=== PATIENT | male | born 1965 | race Caucasian/White ===

== ENCOUNTER 2020-07-12 12:31 | Inpatient (IN) | payer OTHER, MEDICARE ==
[~2020-07-12] VITALS: Ht 182.9 cm; Wt 117.9 kg
[2020-07-12 12:51] LABS: BASOPHILS ABSOLUTE AUTO 0.06 K/mm3 (0.00-0.23); BASOPHILS PERCENT AUTO 1 % (0-2); EOSINOPHILS ABSOLUTE AUTO 0.28 K/mm3 (0.00-0.68); EOSINOPHILS PERCENT AUTO 4 % (0-6); Hematocrit 41.9 % (37.0-53.0); Hemoglobin 13.2 g/dL (13.5-17.5); IMMATURE GRAN ABSOLUTE AUTO 0.02 K/mm3 (0.00-0.10); IMMATURE GRAN PERCENT AUTO 0 % (0-1); LYMPHOCYTES ABSOLUTE AUTO 1.71 K/mm3 (0.84-5.20); LYMPHOCYTES PERCENT AUTO 23 % (21-46); MONOCYTES PERCENT AUTO 8 % (4-13); Mean Corpuscular HGB 28.6 pg (26.0-34.0); Mean Corpuscular HGB Conc 31.5 g/dL (31.5-36.5); Mean Corpuscular Volume 91 fL (80-100); Mean Platelet Volume 10.3 fL (9.1-12.4); NEUTROPHILS ABSOLUTE AUTO 4.86 K/mm3 (1.96-9.15); NEUTROPHILS PERCENT AUTO 65 % (41-73); Platelet Count 251 K/mm3 (150-400); RDW Coefficient Variation 14.9 % (11.7-14.2); RDW Standard Deviation 49.4 fL (35.1-46.3); Red Blood Cell Count 4.62 M/mm3 (4.30-5.90); White Blood Cell Count 7.53 K/mm3 (4.00-11.30)
[2020-07-12 13:07] LABS: Alanine Aminotransfer (ALT/SGP 26 U/L (12-78); Albumin, Blood 3.4 g/dL (3.4-5.0); Albumin/Globulin Ratio 0.8 (0.8-1.8); Alk Phos 148 U/L (50-136); Anion Gap 6 mmol/L (6-16); Aspartate Aminotrans (AST/SGOT 24 U/L (12-37); Bilirubin, Total 1.2 mg/dL (0.1-1.0); Blood Urea Nitrogen 12 mg/dL (8-24); Bun/Creatinine Ratio 11.4 (12.0-20.0); CO2, Blood 26 mmol/L (21-32); Chloride, Blood 106 mmol/L (98-108); Creatinine, Blood 1.05 mg/dL (0.60-1.20); Globulin, Blood 4.2 g/dL (2.2-4.0); Glomerular Filtration Rate >60 (60-); Glucose, Blood 134 mg/dL (70-99); Potassium, Blood 4.1 mmol/L (3.5-5.5); Sodium, Blood 138 mmol/L (136-145); Total Protein, Blood 7.6 g/dL (6.4-8.2); Troponin I 0.093 ng/mL (0.000-0.040)
[2020-07-12 13:36] LABS: U Amphetamine Screen Not Detected; U Barbituate Screen Not Detected; U Benzodiazapine Screen Not Detected; U Buprenorphine Screen Not Detected; U Cannabinoids Screen DETECTED; U Cocaine Screen Not Detected; U Methadone Screen Not Detected; U Methamphetamine Screen Not Detected; U Opiates Screen Not Detected; U Oxycodone Screen Not Detected; U Phencyclidine Screen Not Detected; U Propoxyphene Screen Not Detected
[2020-07-12] MEDS ORDERED: ALBENDAZOLE200 MG PO (14:04)
[2020-07-12] MEDS ORDERED: BUSP5 PO (14:05)
[2020-07-12] MEDS ORDERED: ATOR80 PO (14:05)
[2020-07-12] MEDS ORDERED: Prozac20 MG PO (14:05)
[2020-07-12] MEDS ORDERED: METF500 PO (14:06)
[2020-07-12] MEDS ORDERED: FURO40 PO (14:06)
[2020-07-12] MEDS ORDERED: METO100ER PO (14:07)
[2020-07-12] MEDS ORDERED: OMEP20ER PO (14:07)
[2020-07-12] MEDS ORDERED: XARELTO20 MG PO (14:08)
[2020-07-12] MEDS ORDERED: TAMS.4ER PO (14:08)
[2020-07-12] MEDS ORDERED: POTA10T PO (14:08)
--- NOTE | 2020-07-12 18:01 | NUR ---
Echocardiogram using 0.60ml of Definity contrast performed.
--- NOTE | 2020-07-12 20:35 | NUR ---
PROVIDER SPOKE WITH MISSAEL COOPER REGARDING UNCLEAR ORDERS REGARDING AIRBORNE ISOLATION. GROUP SALES MANAGER ADMITTED PT AND STATES NO NEED FOR ISOLATION. UNSURE TO WHY [employer] SHOWS THIS.
[2020-07-12] MEDS ORDERED: Hair, Skin & N1 EACH PO (21:16)
--- NOTE | 2020-07-13 05:15 | NUR ---
ASSUMED CARE OF PATIENT AT APPROXIMATELY 1900 FROM SEEMA Bahena RN. PATIENT ARRIVED TO UNIT VIA STRETCHER; TRANSFER FROM ED TO PCU STRETCHER WITH SBA. PATIENT ALERT AND ORIENTED X4; INDEPENDENT IN ROOM. PATIENT DENIED PAIN MOST OF SHIFT; REPORTED HEADACHE THIS AM; MEDICATED PER EMAR AND COOL WASH CLOTH GIVEN; GOOD RESULTS. ADMISSION COMPLETE. AFIB ON TELE W/ RATE OF 100-125; HEART RATE INCREASES TO 150'S W/ AMBULATION; OXYGEN SATURATION ABOVE 90% ON ROOM AIR; DYSPNEA W/ ACTIVITY. IV S/L. PATIENT SLEPT ABOUT 4 HOURS LAST NIGHT; ATE MULTIPLE SNACKS. PATIENT REPORTS HE HAS NOT BEEN FEELING WELL FOR THE PAST MONTH; POOR APPETITE, SOB, COUGH, SORE THROAT, HEADACHE AND ODD TASTE IN MOUTH; CALLED DR. PEPE; ORDERS RECIEVED FOR COVID TEST; RESULTS PENDING. PATIENT CURRENTLY RESTING IN BED; CALL LIGHT IN REACH; BED IN LOWEST POSISTION; WILL CONTINUE TO MONTOR AND ASSESS UNTIL END OF SHIFT.
[2020-07-13 08:10] LABS: BASOPHILS ABSOLUTE AUTO 0.06 K/mm3 (0.00-0.23); BASOPHILS PERCENT AUTO 1 % (0-2); EOSINOPHILS ABSOLUTE AUTO 0.34 K/mm3 (0.00-0.68); EOSINOPHILS PERCENT AUTO 4 % (0-6); Hematocrit 37.7 % (37.0-53.0); Hemoglobin 12.2 g/dL (13.5-17.5); IMMATURE GRAN ABSOLUTE AUTO 0.02 K/mm3 (0.00-0.10); IMMATURE GRAN PERCENT AUTO 0 % (0-1); LYMPHOCYTES ABSOLUTE AUTO 1.81 K/mm3 (0.84-5.20); LYMPHOCYTES PERCENT AUTO 23 % (21-46); MONOCYTES ABSOLUTE AUTO 0.55 K/mm3 (0.16-1.47); MONOCYTES PERCENT AUTO 7 % (4-13); Mean Corpuscular HGB 29.1 pg (26.0-34.0); Mean Corpuscular HGB Conc 32.4 g/dL (31.5-36.5); Mean Corpuscular Volume 90 fL (80-100); Mean Platelet Volume 10.4 fL (9.1-12.4); NEUTROPHILS ABSOLUTE AUTO 4.96 K/mm3 (1.96-9.15); NEUTROPHILS PERCENT AUTO 64 % (41-73); Platelet Count 241 K/mm3 (150-400); RDW Coefficient Variation 14.8 % (11.7-14.2); RDW Standard Deviation 48.5 fL (35.1-46.3); Red Blood Cell Count 4.19 M/mm3 (4.30-5.90); White Blood Cell Count 7.74 K/mm3 (4.00-11.30)
[2020-07-13 08:32] LABS: Anion Gap 6 mmol/L (6-16); Blood Urea Nitrogen 17 mg/dL (8-24); Bun/Creatinine Ratio 14.9 (12.0-20.0); CO2, Blood 27 mmol/L (21-32); Calcium, Blood 8.7 mg/dL (8.5-10.1); Chloride, Blood 110 mmol/L (98-108); Creatinine, Blood 1.14 mg/dL (0.60-1.20); Glomerular Filtration Rate >60 (60-); Glucose, Blood 128 mg/dL (70-99); Potassium, Blood 3.8 mmol/L (3.5-5.5); Sodium, Blood 143 mmol/L (136-145); Troponin I 0.094 ng/mL (0.000-0.040)
--- NOTE | 2020-07-13 14:38 | NUR ---
PT HRR INCREASES WITH EXERTION 110-160'S AFIB CARDIZEM GTT WAS STARTED AT 15MG/HR, HR JUST NOW STAYED ON THE 80-90'S, PT WAS C/O OF LIGHTHEADEDNESS/NAUSEA AND FEELING WEAK. BP SYSTOLIC DROP DOWN TO 96, SATS ABOVE 94% ON RA, AFEBRILE. CARDIZEM WAS DISCONTINUED EF SHOWS 20-25% ON ECHO DR LE MADE AWARE TO INCREASES METOPROLOL TO 100G STARTING TOMORROW. PT REMAINS IN 2L FLUID RESTRICTION. DENIES CHEST PAIN/PRESSURE, NO OTHER ISSUES ENCOUNTERED FOR THE SHIFT, ABLE TO MAKE NEEDS KNOWN. WILL MONITOR
--- NOTE | 2020-07-13 15:15 | NUR ---
ASSUMED CARE OF PT, HE IS SITTING IN A RECLINER WATCHING TV. HE DENIES ANY COMPLIANTS OR NEEDS AT THIS TIME. Naveen SILVA, CALL LIGHT IN REACH.
--- NOTE | 2020-07-13 18:48 | NUR ---
PT CONTINUES TO SIT IN CHAIR, STATES HE'S DOING FINE, FEELING BETTER, IS PLANNING ON GOING HOME TOMORROW. NO NEEDS AT THIS TIME. CALL LIGHT IN REACH.
--- NOTE | 2020-07-13 21:45 | NUR ---
PATIENT CALLED NURSE TO ROOM TO REPORT THAT HE FEEL LIKE HE HAS BEEN POISONED. PATIENT REPORTS THAT LESS THAN A A MONTH AGO HE WAS DOING METH AND FEELS THE PEOPLE THAT SOLD HIM METH MAY HAVE POISONED HIM; REPORTS HIS GIRLFRIEND A MONTH AGO FROM SAME SYPMTOMS AND BROTHER TWO YEARS AGO FROM SIMILIAR SYMPTOMS. PATIENT REPORTS HE IS NO LONGER USING METH. PATIENT REPORTS ODD METALLIC TASTE IN MOUTH FOR PAST MONTH. REQUEST BLOOD AND URINE BE TESTED FOR TOXINS; WILL PASS ONTO DAYSHIFT. WILL CONTINUE TO MONITOR AND ASSESS.
--- NOTE | 2020-07-14 01:02 | NUR ---
PT INDEPENDENT AROUND ROOM. COOPERATIVE WITH CARE. UNABLE TO SLEEP. PT IS EATING SUGAR FREE SNACKS THROUGHOUT THE NIGHT. CALL LIGHT IN REACH, WILL CONTINUE TO MONITOR.
[2020-07-14 05:53] LABS: Bun/Creatinine Ratio 17.4 (12.0-20.0); Creatinine, Blood 1.32 mg/dL (0.60-1.20); Magnesium, Blood 2.2 mg/dL (1.6-2.4); Potassium, Blood 3.7 mmol/L (3.5-5.5)
[2020-07-14] MEDS ORDERED: Amiodarone HCl200 MG PO (15:42)
[2020-07-14] MEDS ORDERED: LOSA25 PO (15:43)
[2020-07-14] MEDS ORDERED: Nicoderm Cq1 EAC1 TOP (15:44)
[2020-07-14] MEDS ORDERED: NICO2 PO (15:44)
[2020-07-14] MEDS ORDERED: ONDA4ODT MM (15:45)
[2020-07-14] MEDS ORDERED: SPIR25 PO (15:45)
[2020-07-14] MEDS ORDERED: ACET325 PO (15:47)
--- NOTE | 2020-07-14 16:45 | NUR ---
PT DISCHARGED TO HOME TODAY WITH DISCHARGED ORDERS. PT STARTED ON AMIODARONE PO, HR AFIB CONTROLLED ON THE 90-110'S, PT DENIES CHEST PAIN/PRESSURE PT HAS BEEN AMBULATING AROUND THE UNIT. PRESCRIPTION SENT TO [facility], ALL DISCHARGE INSTRUCTIONS AND MEDICATIONS DISCLOSED WITH THE PT, PT TO CALL TO SCHEDULE WITH PCP FOR CARDIAC REHAB REFERRAL. PT PROVIDED [facility] INFORMATION FOR PT TO CALL AND SCHEDULE. ALL BELONGINGS SENT WITH PT, NO OTHER ISSUES ENCOUNTERED PRIOR TO DISCHARGE, PT AMBULATED UPON DISCHARGE, BROTHER PROVIDED TRANSPORTATION.
== END 2020-07-14 16:50 | disposition home or self-care (01) | DRG 292 ==
LOC: ER 12:31 → PCU 16:36
PROVIDERS: Emergency Medicine; Family Medicine; Nurse Practitioner Acute Care; ADMIT Internal Medicine
PROC: 3E0234Z Introduction of Serum, Toxoid and Vaccine into Muscle, Percutaneous Approach (ICD-10-PCS; principal; 2020-07-12)
DX: I11.0 Hypertensive heart disease with heart failure (principal); I48.20 Chronic atrial fibrillation, unspecified; F17.210 Nicotine dependence, cigarettes, uncomplicated; E11.9 Type 2 diabetes mellitus without complications; N40.0 Benign prostatic hyperplasia without lower urinary tract symptoms; E66.9 Obesity, unspecified; Z68.35 Body mass index [BMI] 35.0-35.9, adult; Z79.84 Long term (current) use of oral hypoglycemic drugs; K21.9 Gastro-esophageal reflux disease without esophagitis; F32.9 Major depressive disorder, single episode, unspecified; I34.0 Nonrheumatic mitral (valve) insufficiency; I50.9 Heart failure, unspecified; Z23 Encounter for immunization
CPT/HCPCS: 36415; 71046; 80048; 80053; 82947; 83735; 83880; 84443; 84484; 85025; 93005; 93010; 96374; 96375; 96376; 99285-25; A9270; A9270-GY; C8929; G0008; G0378; J1940; Q2038; Q9957; U0003

== ENCOUNTER 2020-10-03 13:29 | Emergency (ER) | payer OTHER ==
[~2020-10-03] VITALS: Ht 182.9 cm; Wt 111.1 kg
[~2020-10-03 13:29] MED LIST: ACET325 PO; ALBENDAZOLE200 MG PO; Amiodarone HCl200 MG PO; Hair, Skin & N1 EACH PO; LOSA25 PO; NICO2 PO; Nicoderm Cq1 EAC1 TOP
[2020-10-03 14:38] LABS: BASOPHILS ABSOLUTE AUTO 0.05 K/mm3 (0.00-0.23); BASOPHILS PERCENT AUTO 1 % (0-2); EOSINOPHILS ABSOLUTE AUTO 0.45 K/mm3 (0.00-0.68); EOSINOPHILS PERCENT AUTO 8 % (0-6); Hematocrit 38.8 % (37.0-53.0); Hemoglobin 12.6 g/dL (13.5-17.5); IMMATURE GRAN ABSOLUTE AUTO 0.02 K/mm3 (0.00-0.10); IMMATURE GRAN PERCENT AUTO 0 % (0-1); LYMPHOCYTES ABSOLUTE AUTO 1.15 K/mm3 (0.84-5.20); LYMPHOCYTES PERCENT AUTO 19 % (21-46); MONOCYTES ABSOLUTE AUTO 0.54 K/mm3 (0.16-1.47); MONOCYTES PERCENT AUTO 9 % (4-13); Mean Corpuscular HGB 27.2 pg (26.0-34.0); Mean Corpuscular HGB Conc 32.5 g/dL (31.5-36.5); Mean Corpuscular Volume 84 fL (80-100); Mean Platelet Volume 10.7 fL (9.1-12.4); NEUTROPHILS ABSOLUTE AUTO 3.71 K/mm3 (1.96-9.15); NEUTROPHILS PERCENT AUTO 63 % (41-73); Platelet Count 201 K/mm3 (150-400); RDW Coefficient Variation 21.4 % (11.7-14.2); RDW Standard Deviation 64.2 fL (35.1-46.3); Red Blood Cell Count 4.64 M/mm3 (4.30-5.90); White Blood Cell Count 5.92 K/mm3 (4.00-11.30)
[2020-10-03 15:00] LABS: Alanine Aminotransfer (ALT/SGP 30 U/L (12-78); Albumin, Blood 3.5 g/dL (3.4-5.0); Albumin/Globulin Ratio 0.9 (0.8-1.8); Alk Phos 105 U/L (50-136); Anion Gap 7 mmol/L (6-16); Aspartate Aminotrans (AST/SGOT 28 U/L (12-37); Bilirubin, Total 1.6 mg/dL (0.1-1.0); Blood Urea Nitrogen 14 mg/dL (8-24); Bun/Creatinine Ratio 14.8 (12.0-20.0); CO2, Blood 27 mmol/L (21-32); Calcium, Blood 8.9 mg/dL (8.5-10.1); Chloride, Blood 108 mmol/L (98-108); Creatinine, Blood 0.95 mg/dL (0.60-1.20); Globulin, Blood 3.9 g/dL (2.2-4.0); Glomerular Filtration Rate >60 (60-); Glucose, Blood 116 mg/dL (70-99); Potassium, Blood 3.5 mmol/L (3.5-5.5); Sodium, Blood 142 mmol/L (136-145); Total Protein, Blood 7.4 g/dL (6.4-8.2); Troponin I 0.031 ng/mL (0.000-0.040)
== END 2020-10-03 16:52 | disposition home or self-care (01) ==
LOC: ER 13:29
PROVIDERS: Emergency Medicine
DX: I48.91 Unspecified atrial fibrillation (principal); I25.10 Atherosclerotic heart disease of native coronary artery without angina pectoris; E11.9 Type 2 diabetes mellitus without complications; K21.9 Gastro-esophageal reflux disease without esophagitis; E66.9 Obesity, unspecified; F17.210 Nicotine dependence, cigarettes, uncomplicated; Z79.899 Other long term (current) drug therapy; Z91.14 Patient's other noncompliance with medication regimen; Z79.01 Long term (current) use of anticoagulants; Z79.84 Long term (current) use of oral hypoglycemic drugs
CPT/HCPCS: 36415; 80053; 83880; 84484; 85025; 93005; 93010; 96365; 96366; 96375; 99285-25; J2405; J3475; J7030

== ENCOUNTER 2020-10-10 14:53 | Emergency (ER) | payer OTHER ==
[~2020-10-10] VITALS: Ht 182.9 cm; Wt 107.5 kg
[2020-10-10 15:57] LABS: BASOPHILS ABSOLUTE AUTO 0.05 K/mm3 (0.00-0.23); BASOPHILS PERCENT AUTO 1 % (0-2); EOSINOPHILS ABSOLUTE AUTO 0.25 K/mm3 (0.00-0.68); EOSINOPHILS PERCENT AUTO 3 % (0-6); Hematocrit 44.1 % (37.0-53.0); Hemoglobin 14.4 g/dL (13.5-17.5); IMMATURE GRAN ABSOLUTE AUTO 0.04 K/mm3 (0.00-0.10); IMMATURE GRAN PERCENT AUTO 1 % (0-1); LYMPHOCYTES ABSOLUTE AUTO 1.06 K/mm3 (0.84-5.20); LYMPHOCYTES PERCENT AUTO 13 % (21-46); MONOCYTES ABSOLUTE AUTO 0.45 K/mm3 (0.16-1.47); MONOCYTES PERCENT AUTO 6 % (4-13); Mean Corpuscular HGB 27.9 pg (26.0-34.0); Mean Corpuscular HGB Conc 32.7 g/dL (31.5-36.5); Mean Corpuscular Volume 86 fL (80-100); Mean Platelet Volume 11.2 fL (9.1-12.4); NEUTROPHILS ABSOLUTE AUTO 6.37 K/mm3 (1.96-9.15); NEUTROPHILS PERCENT AUTO 78 % (41-73); Platelet Count 226 K/mm3 (150-400); RDW Coefficient Variation 22.7 % (11.7-14.2); RDW Standard Deviation 68.6 fL (35.1-46.3); Red Blood Cell Count 5.16 M/mm3 (4.30-5.90); White Blood Cell Count 8.22 K/mm3 (4.00-11.30)
[2020-10-10 16:16] LABS: Alanine Aminotransfer (ALT/SGP 36 U/L (12-78); Albumin, Blood 3.9 g/dL (3.4-5.0); Albumin/Globulin Ratio 0.8 (0.8-1.8); Alk Phos 118 U/L (50-136); Anion Gap 8 mmol/L (6-16); Aspartate Aminotrans (AST/SGOT 40 U/L (12-37); Bilirubin, Total 1.6 mg/dL (0.1-1.0); Blood Urea Nitrogen 17 mg/dL (8-24); Bun/Creatinine Ratio 16.7 (12.0-20.0); CO2, Blood 25 mmol/L (21-32); Calcium, Blood 9.8 mg/dL (8.5-10.1); Chloride, Blood 107 mmol/L (98-108); Creatinine, Blood 1.02 mg/dL (0.60-1.20); Globulin, Blood 4.6 g/dL (2.2-4.0); Glomerular Filtration Rate >60 (60-); Glucose, Blood 144 mg/dL (70-99); Potassium, Blood 3.9 mmol/L (3.5-5.5); Sodium, Blood 140 mmol/L (136-145); Total Protein, Blood 8.5 g/dL (6.4-8.2); Troponin I 0.048 ng/mL (0.000-0.040)
[2020-10-10 18:56] LABS: Source, Urine Clean Catch
[2020-10-10 19:01] LABS: Appearance, Urine Hazy (Clear); Blood, Urine 1+ (Neg); Color, Urine Amber (P-Yellow); Glucose Qualitative, Urine Neg (Neg); Ketones, Urine 2+ (Neg); Leukocyte Esterase, Urine 1+ (Neg); Nitrite, Urine Neg (Neg); Protein, Urine 2+ (Neg); Urobilinogen, Urine 1+ (Normal)
[2020-10-10 19:15] LABS: U Amphetamine Screen DETECTED; U Barbituate Screen Not Detected; U Benzodiazapine Screen Not Detected; U Buprenorphine Screen Not Detected; U Cannabinoids Screen DETECTED; U Cocaine Screen Not Detected; U Methadone Screen Not Detected; U Methamphetamine Screen DETECTED; U Opiates Screen Not Detected; U Oxycodone Screen Not Detected; U Phencyclidine Screen Not Detected; U Propoxyphene Screen Not Detected
[2020-10-10 19:21] LABS: Bilirubin, Urine 1+ (Neg); Calcium Oxalate Crystals Many /hpf
[2020-10-10 19:22] LABS: Mucus Light (0-Heavy)
[2020-10-10 19:23] LABS: Bacteria Mod /hpf; Squamous Epithelial Cells Rare /hpf (Few)
[2020-10-10] MEDS ORDERED: ATOR40TA PO (20:31)
[2020-10-10] MEDS ORDERED: FURO40 PO (20:32)
[2020-10-10] MEDS ORDERED: Prozac20 MG PO (20:32)
[2020-10-10] MEDS ORDERED: METF500 PO (20:32)
[2020-10-10] MEDS ORDERED: Buspirone HCl15 MG PO (20:32)
[2020-10-10] MEDS ORDERED: METO100ER PO (20:33)
[2020-10-10] MEDS ORDERED: POTA10T PO (20:34)
[2020-10-10] MEDS ORDERED: TAMS.4ER PO (20:34)
[2020-10-10] MEDS ORDERED: OMEP20ER PO (20:34)
[2020-10-10] MEDS ORDERED: SPIR25 PO (20:34)
[2020-10-10] MEDS ORDERED: XARELTO20 MG PO (20:34)
[2020-10-10] MEDS ORDERED: ONDA4ODT SL (20:35)
== END 2020-10-10 21:35 | disposition home or self-care (01) ==
LOC: ER 14:53
PROVIDERS: Physician Assistant
DX: T78.3XXA Angioneurotic edema, initial encounter (principal); F15.959 Other stimulant use, unspecified with stimulant-induced psychotic disorder, unspecified; F15.129 Other stimulant abuse with intoxication, unspecified; I48.91 Unspecified atrial fibrillation; E11.9 Type 2 diabetes mellitus without complications; K21.9 Gastro-esophageal reflux disease without esophagitis; F17.210 Nicotine dependence, cigarettes, uncomplicated; Z79.4 Long term (current) use of insulin; Z79.899 Other long term (current) drug therapy
CPT/HCPCS: 71046; 80053; 81001; 83880; 84484; 85025; 87086; 93005; 93010; 96374; 96375; 99284-25; A9270; J2060

== ENCOUNTER 2020-10-12 16:00 | Emergency (ER) | payer OTHER ==
[~2020-10-12] VITALS: Ht 182.9 cm; Wt 99.8 kg
[~2020-10-12 16:00] MED LIST changes: +ATOR40TA PO; +Buspirone HCl15 MG PO; +FURO40 PO; +METF500 PO; +METO100ER PO; +OMEP20ER PO; +ONDA4ODT SL; +POTA10T PO; +Prozac20 MG PO; +SPIR25 PO; +TAMS.4ER PO; +XARELTO20 MG PO
[2020-10-12 16:42] LABS: BASOPHILS ABSOLUTE AUTO 0.06 K/mm3 (0.00-0.23); BASOPHILS PERCENT AUTO 1 % (0-2); EOSINOPHILS PERCENT AUTO 2 % (0-6); Hemoglobin 13.3 g/dL (13.5-17.5); IMMATURE GRAN ABSOLUTE AUTO 0.03 K/mm3 (0.00-0.10); IMMATURE GRAN PERCENT AUTO 0 % (0-1); LYMPHOCYTES ABSOLUTE AUTO 1.79 K/mm3 (0.84-5.20); LYMPHOCYTES PERCENT AUTO 20 % (21-46); MONOCYTES PERCENT AUTO 7 % (4-13); Mean Corpuscular HGB 27.2 pg (26.0-34.0); Mean Corpuscular HGB Conc 31.7 g/dL (31.5-36.5); Mean Corpuscular Volume 86 fL (80-100); Mean Platelet Volume 10.8 fL (9.1-12.4); NEUTROPHILS ABSOLUTE AUTO 6.15 K/mm3 (1.96-9.15); NEUTROPHILS PERCENT AUTO 70 % (41-73); Platelet Count 195 K/mm3 (150-400); RDW Coefficient Variation 22.2 % (11.7-14.2); RDW Standard Deviation 69.4 fL (35.1-46.3); Red Blood Cell Count 4.89 M/mm3 (4.30-5.90); White Blood Cell Count 8.83 K/mm3 (4.00-11.30)
[2020-10-12 16:56] LABS: Alanine Aminotransfer (ALT/SGP 38 U/L (12-78); Albumin, Blood 3.7 g/dL (3.4-5.0); Albumin/Globulin Ratio 0.8 (0.8-1.8); Alk Phos 102 U/L (50-136); Anion Gap 7 mmol/L (6-16); Aspartate Aminotrans (AST/SGOT 30 U/L (12-37); Bilirubin, Total 1.4 mg/dL (0.1-1.0); Blood Urea Nitrogen 27 mg/dL (8-24); Bun/Creatinine Ratio 25.5 (12.0-20.0); CO2, Blood 25 mmol/L (21-32); Calcium, Blood 8.9 mg/dL (8.5-10.1); Chloride, Blood 108 mmol/L (98-108); Creatinine, Blood 1.06 mg/dL (0.60-1.20); Globulin, Blood 4.4 g/dL (2.2-4.0); Glomerular Filtration Rate >60 (60-); Glucose, Blood 129 mg/dL (70-99); Potassium, Blood 3.4 mmol/L (3.5-5.5); Sodium, Blood 140 mmol/L (136-145); Total Protein, Blood 8.1 g/dL (6.4-8.2); Troponin I 0.044 ng/mL (0.000-0.040)
[2020-10-12] MEDS ORDERED: AMOCLA875 PO (18:17)
== END 2020-10-12 18:33 | disposition home or self-care (01) ==
LOC: ER 16:00
PROVIDERS: Emergency Medicine
DX: K12.1 Other forms of stomatitis (principal); F45.8 Other somatoform disorders; F15.10 Other stimulant abuse, uncomplicated; I48.91 Unspecified atrial fibrillation; E11.9 Type 2 diabetes mellitus without complications; F17.200 Nicotine dependence, unspecified, uncomplicated; Z79.01 Long term (current) use of anticoagulants; Z79.84 Long term (current) use of oral hypoglycemic drugs; Z79.899 Other long term (current) drug therapy
CPT/HCPCS: 36415; 70487; 80053; 83605; 84145; 84484; 85025; 87040; 93005; 93010; 99284-25; A9270; J7030; Q9967

== ENCOUNTER 2021-02-15 15:19 | Inpatient (IN) | payer OTHER, MEDICARE ==
[~2021-02-15] VITALS: Ht 182.9 cm; Wt 116.0 kg
[~2021-02-15 15:19] MED LIST changes: +AMOCLA875 PO
[2021-02-15 15:58] LABS: BASOPHILS ABSOLUTE AUTO 0.06 K/mm3 (0.00-0.23); BASOPHILS PERCENT AUTO 1 % (0-2); EOSINOPHILS ABSOLUTE AUTO 0.26 K/mm3 (0.00-0.68); EOSINOPHILS PERCENT AUTO 5 % (0-6); Hematocrit 36.9 % (37.0-53.0); Hemoglobin 12.1 g/dL (13.5-17.5); IMMATURE GRAN ABSOLUTE AUTO 0.01 K/mm3 (0.00-0.10); IMMATURE GRAN PERCENT AUTO 0 % (0-1); LYMPHOCYTES ABSOLUTE AUTO 1.05 K/mm3 (0.84-5.20); LYMPHOCYTES PERCENT AUTO 19 % (21-46); MONOCYTES ABSOLUTE AUTO 0.64 K/mm3 (0.16-1.47); MONOCYTES PERCENT AUTO 12 % (4-13); Mean Corpuscular HGB Conc 32.8 g/dL (31.5-36.5); Mean Corpuscular Volume 82 fL (80-100); Mean Platelet Volume 10.4 fL (9.1-12.4); NEUTROPHILS ABSOLUTE AUTO 3.44 K/mm3 (1.96-9.15); NEUTROPHILS PERCENT AUTO 63 % (41-73); Platelet Count 205 K/mm3 (150-400); RDW Coefficient Variation 17.2 % (11.7-14.2); RDW Standard Deviation 50.1 fL (35.1-46.3); Red Blood Cell Count 4.48 M/mm3 (4.30-5.90); White Blood Cell Count 5.46 K/mm3 (4.00-11.30)
[2021-02-15 16:16] LABS: Alanine Aminotransfer (ALT/SGP 24 U/L (12-78); Albumin, Blood 3.4 g/dL (3.4-5.0); Albumin/Globulin Ratio 0.8 (0.8-1.8); Alk Phos 162 U/L (50-136); Anion Gap 6 mmol/L (6-16); Aspartate Aminotrans (AST/SGOT 23 U/L (12-37); Bilirubin, Total 1.6 mg/dL (0.1-1.0); Blood Urea Nitrogen 11 mg/dL (8-24); Bun/Creatinine Ratio 9.1 (12.0-20.0); CO2, Blood 29 mmol/L (21-32); Calcium, Blood 8.6 mg/dL (8.5-10.1); Chloride, Blood 101 mmol/L (98-108); Creatinine, Blood 1.21 mg/dL (0.60-1.20); Globulin, Blood 4.2 g/dL (2.2-4.0); Glomerular Filtration Rate >60 (60-); Glucose, Blood 109 mg/dL (70-99); Sodium, Blood 136 mmol/L (136-145); Total Protein, Blood 7.6 g/dL (6.4-8.2); Troponin I 0.054 ng/mL (0.000-0.040)
[2021-02-16 03:20] LABS: BASOPHILS ABSOLUTE AUTO 0.05 K/mm3 (0.00-0.23); BASOPHILS PERCENT AUTO 1 % (0-2); EOSINOPHILS ABSOLUTE AUTO 0.34 K/mm3 (0.00-0.68); EOSINOPHILS PERCENT AUTO 8 % (0-6); Hematocrit 32.8 % (37.0-53.0); Hemoglobin 10.9 g/dL (13.5-17.5); IMMATURE GRAN ABSOLUTE AUTO 0.01 K/mm3 (0.00-0.10); IMMATURE GRAN PERCENT AUTO 0 % (0-1); LYMPHOCYTES PERCENT AUTO 21 % (21-46); MONOCYTES ABSOLUTE AUTO 0.63 K/mm3 (0.16-1.47); MONOCYTES PERCENT AUTO 14 % (4-13); Mean Corpuscular HGB Conc 33.2 g/dL (31.5-36.5); Mean Corpuscular Volume 81 fL (80-100); Mean Platelet Volume 10.6 fL (9.1-12.4); NEUTROPHILS ABSOLUTE AUTO 2.44 K/mm3 (1.96-9.15); NEUTROPHILS PERCENT AUTO 56 % (41-73); Platelet Count 183 K/mm3 (150-400); RDW Standard Deviation 50.1 fL (35.1-46.3); Red Blood Cell Count 4.03 M/mm3 (4.30-5.90); White Blood Cell Count 4.37 K/mm3 (4.00-11.30)
[2021-02-16 03:40] LABS: Alanine Aminotransfer (ALT/SGP 20 U/L (12-78); Albumin, Blood 2.8 g/dL (3.4-5.0); Albumin/Globulin Ratio 0.7 (0.8-1.8); Alk Phos 131 U/L (50-136); Anion Gap 2 mmol/L (6-16); Aspartate Aminotrans (AST/SGOT 17 U/L (12-37); Bilirubin, Total 1.4 mg/dL (0.1-1.0); Blood Urea Nitrogen 12 mg/dL (8-24); Bun/Creatinine Ratio 10.4 (12.0-20.0); CO2, Blood 31 mmol/L (21-32); Calcium, Blood 8.1 mg/dL (8.5-10.1); Chloride, Blood 104 mmol/L (98-108); Creatinine, Blood 1.15 mg/dL (0.60-1.20); Globulin, Blood 3.8 g/dL (2.2-4.0); Glomerular Filtration Rate >60 (60-); Glucose, Blood 98 mg/dL (70-99); Magnesium, Blood 2.1 mg/dL (1.6-2.4); Potassium, Blood 3.5 mmol/L (3.5-5.5); Sodium, Blood 137 mmol/L (136-145); Total Protein, Blood 6.6 g/dL (6.4-8.2); Troponin I 0.058 ng/mL (0.000-0.040)
[2021-02-16 04:55] LABS: U Amphetamine Screen Not Detected; U Barbituate Screen Not Detected; U Benzodiazapine Screen Not Detected; U Buprenorphine Screen Not Detected; U Cannabinoids Screen DETECTED; U Cocaine Screen Not Detected; U Methadone Screen Not Detected; U Methamphetamine Screen DETECTED; U Opiates Screen Not Detected; U Oxycodone Screen Not Detected; U Phencyclidine Screen Not Detected; U Propoxyphene Screen Not Detected
--- NOTE | 2021-02-16 05:15 | NUR ---
SHIFT SUMMARY RECEIVED REPORT FROM EDDIE SERRANO, PATIENT TO ROOM FROM ED @2007. SBA WITH TRANSFERRING. PATIENT IS ALERT AND ORIENTED X4, BUT CHANGES HIS ANSWERS OFTEN SO UNSURE OF RELIABLITY OF PATIENTS ANSWERS. 02 SATS >94% ON RA, SOB WITH ACTIVITY. HR A.FIB AVERAGING 120s-130s WHEN PATIENT ARRIVED TO FLOOR, MEDICATED WITH PRN METOPROLOL PER EMAR. DENIES CP/PRESSURE. HIGHEST CIWA OF 2, PATIENT SLEPT MOST THE SHIFT. USES URINAL. PAIN IN BLE MEDICATED IN ED, PATIENT STATED THAT WAS HELPING, HAVE NOT NEEDED TO MEDICATE FOR PAIN PATIENT HAS BEEN SLEEPING. BLE REDNESS, BLUE COLORING ON NAILS PT STATES COLOR IS DUE TO MEDICATION HE TRIED USING, REFILL <3 SECONDS, SENSATION INTACT. ABDOMINAL DISTENTION, PT STATES DR AWARE BUT UNSURE WHAT IT IS. CALL LIGHT IN REACH.
[2021-02-16 14:16] LABS: Potassium, Blood 3.8 mmol/L (3.5-5.5)
--- NOTE | 2021-02-16 18:56 | NUR ---
SHIFT SUMMARY PT HAS BEEN RESTING ON AND OFF THROUGHOUT THE DAY. PT HAS BEEN SBA USING THE URINAL, HE HAS CALLED APPROPRIATELY. PT HAS BEEN COOPERATIVE WITH CARE AND AT THIS TIME HAS CIWA SCORES OF 0-2. PT DENIES CP, BUT IS SOB WITH ACTIVITY, ALTHOUGH MAINTAINS SATS ABOVE 92% ON RA. PT'S HR HAS BOUNCED AROUND TODAY FROM 60-120 DEPENDING ON REST OR ACTIVITY LEVEL. PT IS IN BED AT THIS TIME
[2021-02-17 03:42] LABS: BASOPHILS ABSOLUTE AUTO 0.05 K/mm3 (0.00-0.23); BASOPHILS PERCENT AUTO 1 % (0-2); EOSINOPHILS ABSOLUTE AUTO 0.29 K/mm3 (0.00-0.68); EOSINOPHILS PERCENT AUTO 5 % (0-6); Hematocrit 33.9 % (37.0-53.0); Hemoglobin 11.1 g/dL (13.5-17.5); IMMATURE GRAN ABSOLUTE AUTO 0.01 K/mm3 (0.00-0.10); IMMATURE GRAN PERCENT AUTO 0 % (0-1); LYMPHOCYTES ABSOLUTE AUTO 1.11 K/mm3 (0.84-5.20); LYMPHOCYTES PERCENT AUTO 18 % (21-46); MONOCYTES ABSOLUTE AUTO 0.62 K/mm3 (0.16-1.47); MONOCYTES PERCENT AUTO 10 % (4-13); Mean Corpuscular HGB 26.9 pg (26.0-34.0); Mean Corpuscular HGB Conc 32.7 g/dL (31.5-36.5); Mean Corpuscular Volume 82 fL (80-100); Mean Platelet Volume 10.5 fL (9.1-12.4); NEUTROPHILS ABSOLUTE AUTO 4.02 K/mm3 (1.96-9.15); NEUTROPHILS PERCENT AUTO 66 % (41-73); Platelet Count 187 K/mm3 (150-400); RDW Standard Deviation 49.4 fL (35.1-46.3); Red Blood Cell Count 4.12 M/mm3 (4.30-5.90)
[2021-02-17 04:04] LABS: Alanine Aminotransfer (ALT/SGP 19 U/L (12-78); Albumin, Blood 2.9 g/dL (3.4-5.0); Albumin/Globulin Ratio 0.7 (0.8-1.8); Alk Phos 138 U/L (50-136); Anion Gap 4 mmol/L (6-16); Aspartate Aminotrans (AST/SGOT 19 U/L (12-37); Blood Urea Nitrogen 19 mg/dL (8-24); Bun/Creatinine Ratio 15.7 (12.0-20.0); CO2, Blood 29 mmol/L (21-32); Calcium, Blood 8.9 mg/dL (8.5-10.1); Chloride, Blood 103 mmol/L (98-108); Creatinine, Blood 1.21 mg/dL (0.60-1.20); Globulin, Blood 3.9 g/dL (2.2-4.0); Glomerular Filtration Rate >60 (60-); Glucose, Blood 107 mg/dL (70-99); Magnesium, Blood 2.1 mg/dL (1.6-2.4); Potassium, Blood 3.9 mmol/L (3.5-5.5); Sodium, Blood 136 mmol/L (136-145); Total Protein, Blood 6.8 g/dL (6.4-8.2)
--- NOTE | 2021-02-17 06:01 | NUR ---
SHIFT SUMAMRY PATIENT FOUND TO BE A PLEASANT GENTLMAN WHO IS A&OX4, FOLLOWING COMMANDS, AND SNOW. PAIN TO BLE RELIEVED BY REST AND TYLENOL. VSS. AFIB IN THE LOW 100'S AT REST AND UP TO 120'S WHEN UP IN ROOM. TOLD HIM TO LIMIT ACTIVITY IF POSSIBLE. ON RA. STEADY IN ROOM UP AD NISA. VOIDING WELL PER URINAL. GOOD ORAL INTAKE ON ADA DIET. NO ACUTE CONCERNS AT THIS TIME. BLE +3 PITTING EDEMA WITH SOME MILD WEEPING. WILL CONTINUE TO MONITOR UNTIL REPORT GIVEN TO CELESTINE SERRANO.
--- NOTE | 2021-02-17 17:50 | NUR ---
SHIFT SUMMARY PT HAS BEEN INDEPENDENT IN THE ROOM TODAY. PT HAS NAPPED ON AND OFF THROUGHOUT THE DAY. PT WORKED WITH PHYSICAL THERAPY THIS MORNING AND SPENT SOME TIME IN THE CHAIR AND DANGLING AT THE SIDE OF THE BED. PT'S HR HAS OCCASSIONALLY JUMPED TO THE 150s-160s WITH ACTIVITY BUT QUICKLY DECREASES WHEN HE SITS DOWN, HR AT REST HAS BEEN IN 90s-100. PT HAS REPORTED MINOR PAIN IN THE LEGS DUE TO THE SWELLING, PT WAS MEDICATED PER EMAR.
[2021-02-18 04:57] LABS: Anion Gap 7 mmol/L (6-16); Blood Urea Nitrogen 19 mg/dL (8-24); Bun/Creatinine Ratio 15.4 (12.0-20.0); CO2, Blood 26 mmol/L (21-32); Chloride, Blood 102 mmol/L (98-108); Creatinine, Blood 1.23 mg/dL (0.60-1.20); Glomerular Filtration Rate >60 (60-); Glucose, Blood 124 mg/dL (70-99); Magnesium, Blood 2.2 mg/dL (1.6-2.4); Potassium, Blood 3.9 mmol/L (3.5-5.5); Sodium, Blood 135 mmol/L (136-145)
--- NOTE | 2021-02-18 05:18 | NUR ---
SHIFT SUMMARY PATIENT FOUND TO BE A PLEASANT GENTLEMAN WHO IS A&OX4, SNOW, AND FOLLOWING COMMANDS. AFIB IN THE 90'S AT REST AND UP TO 130'S WHEN UP IN ROOM. EDUCATED PATIENT TO LIMIT ACTIVITY WHEN ABLE. VSS. ON RA. NO CP NOTED. SOME SOB WITH ACTIVITY. GOOD OUPUT PER URINAL. TOLERATING ADA WELL. LITTLE BIT OF NAUSEA THIS AM AFTER AMBULATING TO BATHROOM. PRN ZOFRAN GIVEN. UP AD NISA IN ROOM. NO CONCERNS AT THIS TIME. WILL CONTINUE TO MONITOR UNTIL REPORT GIVEN TO CELESTINE SERRANO.
--- NOTE | 2021-02-18 18:33 | NUR ---
SHIFT SUMMARY: NO ACUTE CHANGES T/OUT SHIFT. PT A&O, SLEEPS OFTEN T/OUT THE DAY, BUT EASILY AROUSABLE. RESPIRATIONS CONTINUE EVEN AND UNLABORED ON RA. AFIB ON MONITOR WITH HR 80s-110s AT REST, INCREASES WITH ACTIVITY. PT REPORTS IMPROVEMENT OF EDEMA TO BLE, NO WEEPING NOTED TODAY. PT AMBULATES TO AND FROM RESTROOM INDEPENDENTLY. NO WITHDRAWAL SYMPTOMS NOTED. WILL CONTINUE TO MONITOR AND TREAT ACCORDINGLY UNTIL CHANGE OF SHIFT.
--- NOTE | 2021-02-19 04:51 | NUR ---
SHIFT SUMMARY* PATIENT FOUND TO BE A PLEASANT GENTLEMAN WHO IS A&OX4, SNOW, AND FOLLOWING COMMANDS. ANXIOUS AT TIMES R/T TO CURRENT CONDITION AND THERAPEUTIC COMMUNICATION PROVIDED. AFIB IN THE 80S MOST OF SHIFT UP TO 90S-LOW 100S WHEN UP. BP STILL ON THE SOFT SIDE SO HELD EVENING DOSE OF METOPROLOL. UP AD NISA IN ROOM WITH SOME MILD DIZZINESS NOTED AND EDUCATED PATIENT TO TAKE THINGS SLOW. NO CP OR PRESSURE. ON RA. SOME HOSKINS NOTED BUT SEEMS TO BE IMPROVING PER PATIENT REPORT. BLE +2 EDEMA AND PAIN AT TOLERABLE LEVEL OF A 2. GOOD OUTPUT PER URINAL. TOLERATING ADA DIET WITHOUT ISSUE. TOOK SHOWER EARLY AM AND NOW SLEEPING SOUNDLY AGAIN. NO ACUTE CONCERNS AT THIS TIME. WILL CONTINUE TO MONITOR UNTIL REPORT GIVEN TO DAYSHIFT RN.
[2021-02-19 09:58] LABS: Anion Gap 7 mmol/L (6-16); Blood Urea Nitrogen 23 mg/dL (8-24); Bun/Creatinine Ratio 18.3 (12.0-20.0); CO2, Blood 27 mmol/L (21-32); Calcium, Blood 8.8 mg/dL (8.5-10.1); Chloride, Blood 100 mmol/L (98-108); Creatinine, Blood 1.26 mg/dL (0.60-1.20); Glomerular Filtration Rate >60 (60-); Glucose, Blood 171 mg/dL (70-99); Phosphorus, Blood 3.3 mg/dL (2.5-4.9); Potassium, Blood 3.8 mmol/L (3.5-5.5); Sodium, Blood 134 mmol/L (136-145)
--- NOTE | 2021-02-19 18:45 | NUR ---
SHIFT SUMMARY PT WAS STATUS CHANGED TODAY TO MEDICAL WITH TELE. PT HAS CONTINUED TO BE LETHARGIC BUT IS AROUSABLE. PT HAS TAKEN SEVERAL WALKS TODAY HE REPORTS ONLY 2 SMALL VERY HARD BM IN THE LAST FEW DAYS. PT HAS BEEN STARTED ON BOWEL CARE, HAS BEEN ENCOURAGED TO TAKE WALKS, STAY ACTIVE. PT HAS BEEN COOPERATIVE. PT'S HR HAS SUSTAINED 80s- LOW 100s EVEN WITH ACTIVITY. VS STABLE. PT INDEPENDENT IN THE ROOM
[2021-02-20 04:24] LABS: Albumin, Blood 2.9 g/dL (3.4-5.0); Anion Gap 4 mmol/L (6-16); Blood Urea Nitrogen 24 mg/dL (8-24); Bun/Creatinine Ratio 16.3 (12.0-20.0); CO2, Blood 31 mmol/L (21-32); Calcium, Blood 8.9 mg/dL (8.5-10.1); Chloride, Blood 100 mmol/L (98-108); Creatinine, Blood 1.47 mg/dL (0.60-1.20); Glomerular Filtration Rate 53 (60-); Glucose, Blood 114 mg/dL (70-99); Phosphorus, Blood 3.5 mg/dL (2.5-4.9); Potassium, Blood 3.9 mmol/L (3.5-5.5); Sodium, Blood 135 mmol/L (136-145)
--- NOTE | 2021-02-20 06:01 | NUR ---
No change in pt t/o noc. vss. a/o x4. ciwa scores-0. pt c/o abdominal discomfort and nase[place] x1. relieved w/ tylenol and zofran. pt slept well, independent in room. ambulated x1. No bowel movement, continuing bowel care.
--- NOTE | 2021-02-20 12:46 | NUR ---
Pt resting in bed upon arrival. Pt struggling to keep his eyes open. Speech is mumbled and sometimes difficult to understand. Pt reports feeling tired. Gentle education given on disease process including trajectory of disease. Discussed the importance of complying with recommendations and having routine conversations with PCP. Answered questions and offered therapeutic listening. Pt still struggling with keeping his eyes opened. Ended visit to allow Pt to rest. Spoke with Primary RN Emma and discussed case. Palliative Care will remain available.
--- NOTE | 2021-02-20 17:33 | NUR ---
SHIFT SUMMARY NO ACUTE EVENTS THIS SHIFT, VSS. PATIENT ALERT AND ORIENTED, COOPERATIVE WITH CARE. ORTHOSTATIC VITALS COMPLETED. PATIENT REMAINED IN A FIB THIS SHIFT, HR RUNNING UP TO 90S THROUGH SHIFT. PATIENT DENIED CHEST PAIN/PRESSURE T/O SHIFT. ABLE TO AMBULATE INDEPENDENTLY, CALLED APPROPRIATELY. ON ROOM AIR, TOLERATED WELL.
--- NOTE | 2021-02-20 18:50 | NUR ---
REPORT GIVEN TO SUHAIL SERRANO ON MEDICAL.
--- NOTE | 2021-02-21 04:25 | NUR ---
SHIFT SUMMARY ADMITTED FOR AFIB W/RVR. FULL CODE. PLAN IS FOR DC TODAY. HE WILL NEED TO SEE CARDIOLOGY OUTPATIENT (EF 20%). HX OF BEING NONCOMPLIANT WITH HOME MEDICATIONS. TELEMETRY: AFIB IN THE 80'S BPM. HE TAKES XARELTO. HX OF POLYSUBSTANCE ABUSE. CIWAS'S Q 8HRS HAVE SCORED ZERO. NO NEW CONCERNS THIS SHIFT.
[2021-02-21 05:52] LABS: Anion Gap 5 mmol/L (6-16); Blood Urea Nitrogen 25 mg/dL (8-24); Bun/Creatinine Ratio 19.1 (12.0-20.0); CO2, Blood 28 mmol/L (21-32); Chloride, Blood 102 mmol/L (98-108); Creatinine, Blood 1.31 mg/dL (0.60-1.20); Glomerular Filtration Rate >60 (60-); Glucose, Blood 104 mg/dL (70-99); Phosphorus, Blood 3.7 mg/dL (2.5-4.9); Potassium, Blood 4.1 mmol/L (3.5-5.5); Sodium, Blood 135 mmol/L (136-145)
[2021-02-21] MEDS ORDERED: Amiodarone HCl200 MG PO (11:22)
[2021-02-21] MEDS ORDERED: LISI5 PO (11:23)
[2021-02-21] MEDS ORDERED: MIRALAX17 GM PO (11:24)
[2021-02-21] MEDS ORDERED: B-1100 M1 PO (11:25)
--- NOTE | 2021-02-21 17:23 | NUR ---
DISCHARGE SUMMARY PT DISCHARGED @ APPROX 1715 VIA WHEELCHAIR BY RADHA. DISCHARGE INSTRUCTIONS AND NEW MEDICATIONS REVIEWEED c PT, PT HAD NO FURTHER QUESTIONS OR CONCERNS @ THIS TIME. NEEDED RX FAXED TO IN PHARMACY. PT STATES HE HAS ALL OF HIS BELONGINGS.
== END 2021-02-21 17:16 | disposition home or self-care (01) | DRG 280 ==
LOC: ER 15:19 → MEDS 18:19 → PCU 18:19 → MEDS 02-20 19:24 → ENPENDDIS 02-21 12:38 → MEDS 02-21 17:16
PROVIDERS: Internal Medicine; Nurse Practitioner Acute Care; Physician Assistant; ADMIT Family Medicine
DX: I48.20 Chronic atrial fibrillation, unspecified (principal); I21.A1 Myocardial infarction type 2; I50.23 Acute on chronic systolic (congestive) heart failure; I11.0 Hypertensive heart disease with heart failure; E87.6 Hypokalemia; Z79.01 Long term (current) use of anticoagulants; F17.210 Nicotine dependence, cigarettes, uncomplicated; K21.9 Gastro-esophageal reflux disease without esophagitis; F15.10 Other stimulant abuse, uncomplicated; N40.0 Benign prostatic hyperplasia without lower urinary tract symptoms; I27.20 Pulmonary hypertension, unspecified; I34.0 Nonrheumatic mitral (valve) insufficiency; E11.9 Type 2 diabetes mellitus without complications; E78.5 Hyperlipidemia, unspecified; F32.9 Major depressive disorder, single episode, unspecified; F12.10 Cannabis abuse, uncomplicated; F10.10 Alcohol abuse, uncomplicated; I42.7 Cardiomyopathy due to drug and external agent; Z79.84 Long term (current) use of oral hypoglycemic drugs
CPT/HCPCS: 36415; 71045; 80053; 80069; 82947; 83036; 83735; 83880; 84100; 84132; 84484; 85025; 93005; 93010; 96365; 96375; 96376; 97110; 97112; 97162; 99285-25; A9270; C8929; J1160; J1940; J2405; J3480; Q9957

== ENCOUNTER 2021-04-18 20:20 | Emergency (ER) | payer OTHER ==
[~2021-04-18] VITALS: Ht 180.3 cm; Wt 104.3 kg
[~2021-04-18 20:20] MED LIST changes: +B-1100 M1 PO; +LISI5 PO; +MIRALAX17 GM PO
[2021-04-18 21:34] LABS: BASOPHILS ABSOLUTE AUTO 0.06 K/mm3 (0.00-0.23); BASOPHILS PERCENT AUTO 1 % (0-2); EOSINOPHILS ABSOLUTE AUTO 0.23 K/mm3 (0.00-0.68); EOSINOPHILS PERCENT AUTO 3 % (0-6); Hematocrit 38.2 % (37.0-53.0); Hemoglobin 12.3 g/dL (13.5-17.5); IMMATURE GRAN ABSOLUTE AUTO 0.01 K/mm3 (0.00-0.10); IMMATURE GRAN PERCENT AUTO 0 % (0-1); LYMPHOCYTES ABSOLUTE AUTO 1.18 K/mm3 (0.84-5.20); LYMPHOCYTES PERCENT AUTO 18 % (21-46); MONOCYTES ABSOLUTE AUTO 0.64 K/mm3 (0.16-1.47); MONOCYTES PERCENT AUTO 10 % (4-13); Mean Corpuscular HGB 25.7 pg (26.0-34.0); Mean Corpuscular HGB Conc 32.2 g/dL (31.5-36.5); Mean Corpuscular Volume 80 fL (80-100); Mean Platelet Volume 9.9 fL (9.1-12.4); NEUTROPHILS ABSOLUTE AUTO 4.56 K/mm3 (1.96-9.15); NEUTROPHILS PERCENT AUTO 68 % (41-73); Platelet Count 218 K/mm3 (150-400); RDW Coefficient Variation 21.8 % (11.7-14.2); RDW Standard Deviation 62.2 fL (35.1-46.3); Red Blood Cell Count 4.79 M/mm3 (4.30-5.90); White Blood Cell Count 6.68 K/mm3 (4.00-11.30)
[2021-04-18 21:55] LABS: Alanine Aminotransfer (ALT/SGP 31 U/L (12-78); Albumin, Blood 3.1 g/dL (3.4-5.0); Albumin/Globulin Ratio 0.7 (0.8-1.8); Alk Phos 156 U/L (50-136); Anion Gap 6 mmol/L (6-16); Aspartate Aminotrans (AST/SGOT 38 U/L (12-37); Blood Urea Nitrogen 11 mg/dL (8-24); Bun/Creatinine Ratio 12.3 (12.0-20.0); CO2, Blood 24 mmol/L (21-32); Calcium, Blood 8.9 mg/dL (8.5-10.1); Chloride, Blood 111 mmol/L (98-108); Globulin, Blood 4.7 g/dL (2.2-4.0); Glomerular Filtration Rate >60 (60-); Glucose, Blood 103 mg/dL (70-99); Potassium, Blood 3.9 mmol/L (3.5-5.5); Sodium, Blood 141 mmol/L (136-145); Total Protein, Blood 7.8 g/dL (6.4-8.2); Troponin I 0.052 ng/mL (0.000-0.040)
[2021-04-18] MEDS ORDERED: Lasix40 MG PO (22:21)
[2021-04-18] MEDS ORDERED: Lopressor 50 mg50 MG PO (22:21)
[2021-04-18] MEDS ORDERED: XARELTO20 MG PO (22:21)
== END 2021-04-18 23:26 | disposition home or self-care (01) ==
LOC: ER 20:20
PROVIDERS: Physician Assistant
DX: I48.91 Unspecified atrial fibrillation (principal); I10 Essential (primary) hypertension; F17.210 Nicotine dependence, cigarettes, uncomplicated; Z79.899 Other long term (current) drug therapy
CPT/HCPCS: 36415; 71046; 80053; 83690; 83880; 84484; 85025; 93005; 93010; 96374; 99285-25; A9270

== ENCOUNTER 2021-04-21 01:38 | Emergency (ER) | payer OTHER, MEDICARE ==
[~2021-04-21] VITALS: Ht 182.9 cm; Wt 104.3 kg
[~2021-04-21 01:38] MED LIST changes: +Lasix40 MG PO; +Lopressor 50 mg50 MG PO
== END 2021-04-21 04:57 | disposition home or self-care (01) ==
LOC: ER 01:38
DX: I83.892 Varicose veins of left lower extremity with other complications (principal); I48.91 Unspecified atrial fibrillation; E11.9 Type 2 diabetes mellitus without complications; K21.9 Gastro-esophageal reflux disease without esophagitis; F17.210 Nicotine dependence, cigarettes, uncomplicated; N40.0 Benign prostatic hyperplasia without lower urinary tract symptoms; Z79.899 Other long term (current) drug therapy; Z79.01 Long term (current) use of anticoagulants; Z79.84 Long term (current) use of oral hypoglycemic drugs
CPT/HCPCS: 96365; 96366; 96368; 96375; 99285-25

== ENCOUNTER 2021-06-25 13:36 | Inpatient (IN) | payer OTHER ==
[~2021-06-25] VITALS: Ht 182.9 cm; Wt 123.4 kg
[2021-06-25] MEDS ORDERED: POTA10T PO (13:51)
[2021-06-25] MEDS ORDERED: METAMUCIL POWD575 GM PO (13:52)
[2021-06-25 14:23] LABS: BASOPHILS ABSOLUTE AUTO 0.06 K/mm3 (0.00-0.23); BASOPHILS PERCENT AUTO 1 % (0-2); EOSINOPHILS PERCENT AUTO 4 % (0-6); Hematocrit 34.7 % (37.0-53.0); Hemoglobin 11.4 g/dL (13.5-17.5); IMMATURE GRAN ABSOLUTE AUTO 0.02 K/mm3 (0.00-0.10); IMMATURE GRAN PERCENT AUTO 0 % (0-1); LYMPHOCYTES ABSOLUTE AUTO 0.87 K/mm3 (0.84-5.20); LYMPHOCYTES PERCENT AUTO 17 % (21-46); MONOCYTES ABSOLUTE AUTO 0.51 K/mm3 (0.16-1.47); MONOCYTES PERCENT AUTO 10 % (4-13); Mean Corpuscular HGB 26.8 pg (26.0-34.0); Mean Corpuscular HGB Conc 32.9 g/dL (31.5-36.5); Mean Corpuscular Volume 82 fL (80-100); Mean Platelet Volume 11.2 fL (9.1-12.4); NEUTROPHILS ABSOLUTE AUTO 3.55 K/mm3 (1.96-9.15); NEUTROPHILS PERCENT AUTO 68 % (41-73); Platelet Count 212 K/mm3 (150-400); RDW Coefficient Variation 18.4 % (11.7-14.2); RDW Standard Deviation 53.5 fL (35.1-46.3); Red Blood Cell Count 4.26 M/mm3 (4.30-5.90); White Blood Cell Count 5.21 K/mm3 (4.00-11.30)
[2021-06-25 14:40] LABS: Albumin, Blood 2.9 g/dL (3.4-5.0); Albumin/Globulin Ratio 0.6 (0.8-1.8); Bilirubin, Total 1.9 mg/dL (0.1-1.0); Bun/Creatinine Ratio 11.9 (12.0-20.0); Calcium, Blood 9.3 mg/dL (8.5-10.1); Creatinine, Blood 1.35 mg/dL (0.60-1.20); Globulin, Blood 4.6 g/dL (2.2-4.0); Potassium, Blood 2.7 mmol/L (3.5-5.5); Total Protein, Blood 7.5 g/dL (6.4-8.2); Troponin I 0.07 ng/mL (0.000-0.040)
--- NOTE | 2021-06-25 23:30 | NUR ---
TRANSFER NOTE REPORT FROM LIZETH HOLLEY RN. PT TO THE FLOOR VIA [facility]. PT STOOD AND TRANSFERRED TO THE HOSPITAL BED. PT ORIENTED TO FLOOR AND UNIT. CALL LIGHT WITHIN REACH.
--- NOTE | 2021-06-25 23:40 | NUR ---
SPOKE WITH HOSPITALIST REGARDING PT'S BLOOD PRESSURE AND SCHEDULED METOPROLOL DUE TO SYSTOLIC BEING 98. SHE RECOMMENDED STILL GIVING THE ORAL METOPROLOL FOR THE PATIENT'S RAPID HEART RATE.
--- NOTE | 2021-06-26 00:49 | NUR ---
SPOKE TO TELEMETRY. THE PATIENT IS CURRENTLY RUNNING AFIB AT 145-160 BPM WHILE STANDING UP AND USING THE URINAL. DR. CHAVES HAS ORDERED STAT LABS. ENCOURAGED THE PATIENT NOT TO BE UP MOVING AROUND IN THE ROOM. TRY TO RELAX AND WILL REASSESS.
--- NOTE | 2021-06-26 01:00 | NUR ---
SPOKE TO DR. CHAVES AND INFORMED OF HR 160 WHILE STANDING TO USE THE URINAL. CALLED TELE AND CHECKED RATE NOW DOWN TO 125 WHILE RESTING IN BED. SHE STATED TO ALLOW HIM TO REST SOME AND SEE IF THE METOPROLOL WILL CONTINUE TO BRING HIM DOWN. INFORMED THAT UA WAS SENT WHICH WAS TEA COLORED URINE. STAT LABS WERE DRAWN FOR ELECTROLYTES, AWAITING RESULTS.
[2021-06-26 01:12] LABS: U Amphetamine Screen DETECTED; U Barbituate Screen Not Detected; U Benzodiazapine Screen Not Detected; U Buprenorphine Screen Not Detected; U Cannabinoids Screen DETECTED; U Cocaine Screen Not Detected; U Methadone Screen Not Detected; U Methamphetamine Screen DETECTED; U Opiates Screen Not Detected; U Oxycodone Screen Not Detected; U Phencyclidine Screen Not Detected; U Propoxyphene Screen Not Detected
[2021-06-26 01:22] LABS: Magnesium, Blood 2.2 mg/dL (1.6-2.4); Phosphorus, Blood 4.5 mg/dL (2.5-4.9); Potassium, Blood 3.4 mmol/L (3.5-5.5)
--- NOTE | 2021-06-26 01:47 | NUR ---
PATIENT IS CURRENTLY RESTING. UA POSTIVE FOR METH WHICH COULD BE LEADING TO TACHYCARDIA. LABS IMPROVED FROM PREVIOUSLY. HR IN 110'S. WILL CONTINUE TO MONITOR AT THIS TIME.
[2021-06-26 06:26] LABS: Hematocrit 35.7 % (37.0-53.0); Hemoglobin 11.7 g/dL (13.5-17.5); Mean Corpuscular HGB 26.8 pg (26.0-34.0); Mean Corpuscular HGB Conc 32.8 g/dL (31.5-36.5); Mean Corpuscular Volume 82 fL (80-100); Mean Platelet Volume 10.7 fL (9.1-12.4); Platelet Count 212 K/mm3 (150-400); RDW Coefficient Variation 18.6 % (11.7-14.2); RDW Standard Deviation 55.3 fL (35.1-46.3); Red Blood Cell Count 4.37 M/mm3 (4.30-5.90); White Blood Cell Count 5.54 K/mm3 (4.00-11.30)
--- NOTE | 2021-06-26 06:27 | NUR ---
SPOKE TO DR. SOL REGARDING HYPOTENSION DOWN TO THE 70'S. HR IN THE 130'S, SYMPTOMATIC. UA POSITIVE FOR METH. DISCUSSED LABS INCLUDING ELEVATION IN BNP. ORDER FOR 250CC BOLUS.
--- NOTE | 2021-06-26 06:28 | NUR ---
TYPE BAR AND SEGMENT ASSEMBLER SUMMARY ADMITTED FOR AFIB WITH RVR/SOB/FLUID OVERLOAD. PT IS A FULL CODE. PT CONTINUES TO HAVE RAPID HEART RATE OF AT LEAST 110S UP TO THE 160S WHEN AMBULATING. PT WAS MEDICATED WITH IV AND PO METOPROLOL AND CONTINUES TO HAVE SYMPTOMATIC LOW BLOOD PRESSURES. PT WILL RECEIVE A 250 BOLUS. MORNING METOPROLOL WAS HELD DUE TO BLOOD PRESSURE BELOW 80 SYSTOLIC. PT MEDICATED FOR ABDOMINAL PAIN X1 AND NAUSEA X1 THIS SHIFT. PT CONTINUES TO BE DROWSY.
[2021-06-26 06:46] LABS: Calcium, Blood 9.1 mg/dL (8.5-10.1); Creatinine, Blood 1.66 mg/dL (0.60-1.20); Magnesium, Blood 2.5 mg/dL (1.6-2.4); Phosphorus, Blood 4.6 mg/dL (2.5-4.9); Potassium, Blood 3.8 mmol/L (3.5-5.5)
[2021-06-26 08:23] LABS: SARS-Cov-2 (COVID-19) PCR, MMC NEGATIVE (NEGATIVE)
[2021-06-26 10:32] LABS: Free Thyroxine 1.41 ng/dL (0.70-1.60); Thyroid Stimulating Hormone 6.16 uIU/mL (0.360-4.800)
--- NOTE | 2021-06-26 17:43 | NUR ---
PATIENT IS ALERT AND ORIENTED AND COOPERATIVE WITH CARE. PER GYM SUPERVISOR HE IS IN AFIB WITH A RATE OF 115 BPM AT THIS TIME. ON RA. SBA TO THE BATHROOM. USES URINAL. STRICT I&O'S. LEGS ARE ELEVATED IN BED WITH PILLOWS. BP IS STABLE AT 129/77. NO C/O PAIN THIS SHIFT. WILL CONTINUE TO MONITOR
[2021-06-27 05:09] LABS: Bun/Creatinine Ratio 13.6 (12.0-20.0); Creatinine, Blood 1.69 mg/dL (0.60-1.20); Potassium, Blood 3.9 mmol/L (3.5-5.5)
--- NOTE | 2021-06-27 13:26 | NUR ---
PATIENT C/O ORTHOPNEA. VITALS TAKEN WHICH SHOWED O2 SATURATION OF 87% PATIENT PLACED ON 3L O2 VIA NC. BP 111/77 AND A HR OF 110 BPM PER MACHINE ENGINEER. PATIENT C/O HAVING TROUBLE VOIDING. HE HAS ONLY HAS 300 ML URINE OUTPUT THIS SHIFT. POST VOID BLADDER SCAN SHOWED [address] IQBAL NOTIFIED OF CHANGES AND ORDERED TO HOLD DIURETICS FOR NOW BECAUSE HE BELIEVES THE PATIENT IS DEHYDRATED. WILL CONTINUE TO MONITOR
--- NOTE | 2021-06-27 17:19 | NUR ---
Spoke with Primary RN Blank, discussed case and concerns. Pt would benefit from discussion regarding code status and advanced care planning. Pt resting in bed with his eyes closed upon arrival. Pt briefly opens his eyes and attempts to engage in conversation then quickly drifts off to sleep. Ended visit to allow Pt to rest. Will plan to F/U with Pt tomorrow.
--- NOTE | 2021-06-27 17:32 | NUR ---
PATIENT IS ALERT AND ORIENTED. PER CLOTH FINISHING RANGE OPERATOR HE HAS BEEN 104-114 MOST OF THE SHIFT. ON 3L O2 VIA NC. PATIENT C/O SOB AND ORTHOPNEA. FEET ARE ELEVATED IN BED. PATIENT HAS 450 ML URINE OUTPUT TODAY. HIS ECHO RESULTS CAME BACK THIS AFTERNOON, DR. IQBAL NOTIFIED. PALLIATIVE CARE CONSULT PLACED, CHIARA SERRANO ATTEMPTED TO SEE THE PATIENT THIS AFTERNOON BUT THE PATIENT FELL ASLEEP DURING THEIR CONVERSATION. THE PATIENT HAS BEEN SLEEPING BETWEEN MEALS. WILL CONTINUE TO MONITOR
[2021-06-28 04:59] LABS: Bun/Creatinine Ratio 16.2 (12.0-20.0); Calcium, Blood 9.1 mg/dL (8.5-10.1); Creatinine, Blood 1.91 mg/dL (0.60-1.20); Potassium, Blood 4.4 mmol/L (3.5-5.5)
--- NOTE | 2021-06-28 12:13 | NUR ---
Prior to my visit and after I case conferenced with Dr and pt's bedside RN. Pt very somnolent but able to wake up and respond appropriately with a nod of head and verbalization of "yes" during a short visit. He fell back asleep easily between me waking him repeatedly for a conversation re: goals of care and code status. He was not wakeful enough to have further conversation once we established that he understood the information discussed with him this am with his Dr and RN re: prognosis, his profound and end stage heart failure and CPR risks. Pt agreeable to DNR status. I asked a number of times and also reworded and he nodded yes, each time. Pt agreeable to having me return to discuss EOL care when he is more awake. Pt is severely edematous from mid chest down. His color is dusky. I repositioned his arm that was twisted in an awkward way. He is experiencing apnic episodes lasting more than 5 seconds at times. He is not demonstrating nonverbal indicators of severe pain or distress in his sleep at present. RN reports that pt was grieving, very upset and anxious earlier this am. She is going to page me when he is awake. VO obtained and entered for DNR status and report given to /RN on my visit.
--- NOTE | 2021-06-28 13:50 | NUR ---
Received call from RN that pt is expressing and exhibiting pain and is awake enough to discuss comfort care. RN reviewed with him and he is in favor of comfort care at this time. I also reviewed with him and anwered his questions. He is distressed about a dog at home. He states someone is feeding his dog but the dog will need a new home/human. George asked if he could go home. He lives alone and does not appear to have readily available caregivers needed to return home. I asked if we could work on his s/s today and discuss any possible d/c plans tomorrow. He was agreeable to that. I asked if he would like to speak with our shuttle final inspector and he said yes, very much. Loom Winder Tender Nathan available and came within minutes. He is concerned about burial arrangements and paperwork. He states it is at his home. I told him I would try to reach his mom, which I did numerous times but her number does not have VM so I am unable to leave a message. I will keep calling her number. CM note lists his dad Josué, who lives in [place] and I will attempt to reach him. Pt is anxious, appears painful and dyspnic. Color remains dusky. He asked me, "is there any way I can beat this?" and I reviewed his prognosis with EF of 5% and limited options for treatment that had caused concerns with low BP and increased HR and did not improve widespread edema or poor cardiac output or perfusion to kidneys and other vital organs. Pt verbalized understanding and grief about all of that. VO for comfort care entered and reviewed with pt's RN and with pt. SUSPECT ARTIST SUPERVISOR's were in the room to reposition for comfort just before I visited. I will keep trying to get ahold of family to invite in for visits and to tend to some of the items pt is verbalizing concern about. He states his mom lives locally in [facility].
--- NOTE | 2021-06-28 16:00 | NUR ---
Palliative Care requested a Spiritual Care visit because pt recently put on comfort care. Pt presented laying in bed alert oriented to visit. Pt spoke quickly and after introductions asked if what he did was sin? Pt tearfully asked if God would forgive him. The conversation turned to God's forgiveness and pt was able to in the moment ask God to forgive him (only because pt felt he needed to ask). Pt tearfully expressed that he loved God and believed in Red and wanted to be ready when he dies of his current illness. Pt then proceeded to talk about making a will. Pt then shared he was tired. Follow up needed for spiritual care.
--- NOTE | 2021-06-28 17:22 | NUR ---
UPDATED NOK info - Correct # for mom, Taylor Cross [phone], Arsen Kramer- Aung Gil [phone] Dad, Josué in [place] [phone] Family members all contacted at pt's request to update on his decision for EOL care at this time. I was able to reach pt's Step-Brother and gave him pt's direct # into the room. Daniel was on the road, professional regional intermodal truck driver. He will pass # on to pt's parents and let them know that pt is allowed multiple family member visits on comfort care. My last visit to George this afternoon, I found him with much better s/s management and he was much more able to communicate and articulate his wishes, feelings, needs. Earlier both the City Council Member and I had to ask him to slow speech down so we could understand what he was saying to us. Planned with family and pt to f/u in am for s/s assessment and support.
--- NOTE | 2021-06-28 18:31 | NUR ---
MEDICATED WITH ROXANOL 10MG, PT STATES PAIN ALL OVER. NO DYSPNEA. RESTING IN BED CALL LIGHT IN REACH. TOLERATING FOOD AND FLUIDS.
--- NOTE | 2021-06-28 18:32 | NUR ---
PT COMFORTABLE S/P ROXANOL, PLACED A MCMANUS CATH WITH PT AGREEMENT. TOLERATED PROCEDURE FAIR.
--- NOTE | 2021-06-28 18:34 | NUR ---
PT STATES ROXANOL EFFECTIVE FOR PAIN RELEIF. MIN TO NO ANXIETY NOW THAT PAIN CONTROLLED. PT'S MOM CAME IN TO VISIS, IS FRANTIC AND UPSET. RN AIDED IN EXPLAINING PT'S PROGNOSIS AND GIVING SUPPORTIVE CARE. GIVEN COFFEE AND CRACKERS REQ. PT'S HR 130'S IRRATIC, GAVE PM COREG ORDERED. WILL CONT TO PROVIDE COMFORT MEASRUES AND REPORT TO NOC RN.
--- NOTE | 2021-06-29 05:16 | NUR ---
SHIFT SUMMARY COMFORT CARE PATIENT. PT SLEPT ALL SHIFT. APPEARS TO BED IN NO PAIN. PT APPEARS COMFORTABLE.
--- NOTE | 2021-06-29 09:48 | NUR ---
RESTING QUIET IN BED WITH EYES CLOSED, RESP WITH OCC PERIODS OF APNEA. MCMANUS PATENT AND DRAINING.
--- NOTE | 2021-06-29 09:50 | NUR ---
PT UP TO RECLINER SBA PIVOT TX. DR IQBAL HERE RECENT TO ASSESS PT. AGREED TO KEEP MCMANUS IN UNTIL DC FROM HOSP PT STATES HE IS COMFORTABLE NOT HAVING TO USE URINAL. PT STATED PAIN 6/10 ALL OVER. MEDICATED WITH ROXONOL 12MG. TOLERATING JELLOW AND SIPS OF WATER. GIVEN COREG, HR 130-140, IRRATIC.
--- NOTE | 2021-06-29 10:30 | NUR ---
COMFORT CARE VISIT. Spoke with pt's brother by phone and helped dial him for pt at the bedside. Pt's mom, Taylor and step dad visiting and spoke with Aung also. Pt is sitting up in chair, mostly naked. He allowed lab blanket for privacy and warmth. He was eating a popsicle, which he needed my help with. He is much more calm and s/s of pain and anxiety much improved this am. He is able to speak clearly and slowly. He is apologetic to me and his family. Emotional support and encouragement provided. Case conferenced with RN on plan for researching d/c options with CM tomorrow. Pt would be good candidate for [facility] hospice unit if they have a bed available. Due to continued tachycardia with ES CHF and EF of 5-10%, I do not believe George has months remaining in his life but possibly weeks to 1-2 months based on his current s/s and presentation with severe edema from chest to LE. His mentation is dulled but he is able to state his wishes and needs clearly today. Plan to f/u to assist family with their questions re: dc planning. Pt remains most worried about his dog. Will inquire on possible solutions for pt's dog to relieve his grief about that.
--- NOTE | 2021-06-29 17:20 | NUR ---
SUMMARY- PT UP IN RECLINER ALL DAY. SLEPT MOST OF THE DAY. MEDICATED WITH ROXONOL ONCE THIS AM. TOLERATING ICE CREAM AND POP CYCLES, SOLID FOOD NOT DESIRED. URINAL PATENT MED PRIYANKA. MEDICATED AM AND PM WITH COREG RELATED TO HR IN 130-140'S. MOM AND STEP DAD IN AND OUT ALL DAY VISITING. OFFERED EMOTIONAL SUPPORT TO PT AND FAMILY. ALSO SPOKE TO ROSETTE PT'S DAD THIS AM ON THE PHONE LIVING IN [facility]. PLAN TO [facility], WANTS TO GO HOME BUT PT IS NOT EMINANT. WILL REPORT TO NOC.
--- NOTE | 2021-06-29 17:48 | NUR ---
Separate visit with pt's parents later today. They state pt's francisco is coming from [place] to visit this week. We discussed probable d/c planning to safe place where pt can receive 24 hour care, [facility]. Mom confirms that there are no family members or friends who could manage George's care at his home or theirs. They are going to check if anyone in family would like to offer his dog a home. Currently neighbors are feeding the dog at pt's home. VM left for CM re: dc planning needs with hospice services
--- NOTE | 2021-06-30 06:21 | NUR ---
Pt AxOx4. Able to use walker with standby assist to bedside comode and chair. Able to voice needs. Pt refuses pain management because they make him sleepy and he "doesnt want to sleep (his) last days away." Pt has 2-3+ edema especially in the extremities. Lung sounds diminished. Uneventful night. Pt positive and pleasant. Resting in chair at this time. Call light within reach.
--- NOTE | 2021-06-30 11:17 | NUR ---
Comfort care visit made and Case conference with pt's county manager. She states pt is unsure re: hospice placement this am. Visit made to pt who is well known to me from weekend coverage. Pt was speaking with when I arrived. She was done and left I sat at bedside. Pt verbalized anxiety about hospice due to his perception and negative connotation "I heard that's where they warehouse people & leave them alone to ". We discussed hospice as a philosophy, care & support/service to patients at end of life rather than a "place to be put". Pt appropriately tearful, expressing/demonstrating grief & anxiety about his current end stage heart failure. We reviewed his current condition, limited treatment options, no available treatment for cure or reversal, goals of care and plan. Pt is clear that he understands he cannot return home because he is unable to care for himself and does not have family that are physically able to care for him in his home. He is in favor of placement where he can receive the care he needs and his s/s are going to be managed. I reviewed options of [place] hospice unit, [place] with Hospice support there or other community facility or [facility] placement with Hospice. While we were discussing options, CM entered and we updated her on our current conversation. Pt expressing spiritual pain and agreed a Sanitation Engineer visit may be helpful. Pt also expressing and demonstrating anxiety but denies physical pain at this time. RN contacted for administration of ativan per eMAR. Sanitation Engineer contacted and updated on status with request for visit today. Pt was unaware that his francisco was coming from [place] or forgot that conversation with family yesterday. Pt states he & francisco had a falling out and that was very hurtful to him in the past. He is apologetic about his tears and verbalizes that he is having a very hard time with the reality and finality of his situation. Time spent supporting and encouraging him to continue expressing his grief/feelings with no apology needed.
--- NOTE | 2021-06-30 13:21 | NUR ---
Spiritual care visit conducted. Patient is sitting on EOB and alert. Patient's Mother Taylor, and her spouse, Calin are bedside. Patient expresses his feelings of being overwhelmed and struggling to process being at the end of life. We try to continue the conversation but Taylor asks me to pray for them, Which I gladly provide. Patient asks me to come back again which I will attempt to do. Patient does seem to have reduced stress. I will continue to remain available.
--- NOTE | 2021-06-30 17:37 | NUR ---
SHIFT SUMMARY PT RESTING QUIETLY AT START OF SHIFT. WOKE EASILY FOR CARE. DID SIT UP TO EOB FOR BREAKFAST AND REMAINING MEALS. UP WITH 1P ASSIST USING FWW WHEN NEEDING TO GO TO [facility]. PLEASANT AND CO-OP WITH CARE. PALLIATIVE CARE IN TO SEE PT AND DISCUSS PLAN OF CARE AND DISCHARGE OPTIONS. PT TO BE D/C'D ON HOSPICE SOON BED AVAILABLE. [facility] EXPORT LOGISTICS MANAGER [facility], TODAY WAS A HOLIDAY. PT IS AGREEABLE TO GO MOST ANYWHERE, JUST NOT ABLE TO RETURN HOME. NO C/O. ABLE TO MAKE NEEDS KNOWN. CALL LT IN REACH.
--- NOTE | 2021-07-01 05:41 | NUR ---
END OF SHIFT SUMMARY: Pt has had more pain and anxiety tonight. Medicated per eMAR. Able to make needs known. Up to bathroom with walker and one person assist. Complained of constipation. MD notified, medicated per eMAR. Call light within reach. Frequent rounding.
--- NOTE | 2021-07-01 10:24 | NUR ---
Case conference with [facility] Palliative Care RN just prior to their visit with George. Information provided on s/s managment of past few days and pt's course, during this admission.
--- NOTE | 2021-07-01 11:37 | NUR ---
Comfort care visit made to pt earlier. He was sound asleep and did not wake to gentle touch or voice. I did not disturb him. He is not demonstrating any non- verbal indicators of pain or distress. SL dyspnea noted at rest. Supportive visit made to pt's mom and step-dad outside of room. Pt's francisco has left [facility] today and is expected in 2-3 days. [place] Palliative Care team in to evaluate pt and meet with family. They told mom they should have an answer for the pt/family sometime today.
--- NOTE | 2021-07-01 14:15 | NUR ---
Spoke with pt's family, leaving for the day now. They request update when d/c plan becomes known. This was passed on to CM who will call mom. [facility], which will be very good news to family. Plan is for transfer tomorrow. Family also concerned that pt's dentures and other belongings stored in his room be sent with him on transfer. Pt has slept more today than previously. I have not caught him awake at all today. His breathing is sl labored with some short interuptions in resp rate of 20/min at rest. [place] cath with dk renato urine noted. Pt appears comfortable and peaceful while sleeping. He has required very few prn doses of ativan or Roxinol for comfort in past 24 hours.
--- NOTE | 2021-07-01 16:39 | NUR ---
SHIFT SUMMARY PT SLEEPING AT START OF SHIFT TODAY AND WAS VERY SLEEPY ALL DAY. PT WOULD WAKE BRIEFLY BUT THEN GO BACK TO SLEEP. PT'S FAMILY CAME IN A COUPLE OF TIMES TODAY. PT DID SIT UP TO EOB AND EAT A FEW BITES, BUT THEN WENT BACK TO SLEEP. DR HERNANDEZ AND CHROMOSOMAL DISORDERS COUNSELOR IN TO SEE PT THIS AM. CHROMOSOMAL DISORDERS COUNSELOR ARRANGED FOR PT TO GO TO [facility] TOMORROW AM ON HOSPICE; PER PT'S FIRST REQUEST. FAMILY NOTIFIED AND UPDATED. PT DENIED NEEDS EACH TIME WOKE. PLEASANT AND CO-OP. NO S/SX OF DISTRESS NOTED OR REPORTED. CALL LT IN REACH.
--- NOTE | 2021-07-02 04:36 | NUR ---
END OF SHIFT SUMMARY: Pt A&Ox4. Able to voice needs. Some episodes of pain and anxiety. Medicated per EMAR. Call light within reach. Pt is resting at this time. Bed in lowest position.
[2021-07-02 08:55] LABS: SARS-Cov-2 (COVID-19) PCR, MMC NEGATIVE (NEGATIVE)
[2021-07-02] MEDS ORDERED: ATROPINE SULFATE2 M1 SL (08:57)
[2021-07-02] MEDS ORDERED: Ativan1 MG PO (08:58)
[2021-07-02] MEDS ORDERED: MORP20L SL (08:58)
--- NOTE | 2021-07-02 09:27 | NUR ---
PATIENT SITTING AT THE SIDE OFTHE BED EATING BREAKFAST. DENIES ANY PAIN OR DISCOMFORT AT THIS TIME. CALL LIGHT WITHIN REACH.
--- NOTE | 2021-07-02 10:35 | NUR ---
Comfort Care Visit Reviewed chart, discussed case with Primary RN Citlaly, and D/C Walt Baum. [facility] 1130 today. Pt resting in bed upon arrival. Pt denies pain at this time. He reports mild but manageable dyspnea. Discussed plan with Pt reporting being in agreement. Pt reports no concerns at this time. Palliative Care will remain available.
--- NOTE | 2021-07-02 11:56 | NUR ---
PATIENT D/C'D TO [facility] VIA GURNEY TRANSPORT. BELONGINGS INCLUDING WALLET SENT HOME WITH PATIENTS MOTHER MIGUEL ANGEL. IV REMOVED AND MCMANUS LEFT IN PLACE FOR COMFORT. REPORT CALLED TO MAGGIE BANDA AT THE [facility]. PATIENT DENIES ANY FURTHER QUESTIONS OR CONCERNS.
== END 2021-07-02 11:56 | DRG 291 ==
LOC: ER 13:36 → MEDS 18:55
PROVIDERS: Internal Medicine; Physician Assistant; ADMIT Internal Medicine
DX: I11.0 Hypertensive heart disease with heart failure (principal); I50.23 Acute on chronic systolic (congestive) heart failure; N17.9 Acute kidney failure, unspecified; I48.19 Other persistent atrial fibrillation; E11.9 Type 2 diabetes mellitus without complications; E87.6 Hypokalemia; I08.1 Rheumatic disorders of both mitral and tricuspid valves; I27.20 Pulmonary hypertension, unspecified; N40.0 Benign prostatic hyperplasia without lower urinary tract symptoms; Z51.5 Encounter for palliative care; F17.210 Nicotine dependence, cigarettes, uncomplicated; F15.10 Other stimulant abuse, uncomplicated; F10.10 Alcohol abuse, uncomplicated; Z20.822 Contact with and (suspected) exposure to COVID-19; E66.9 Obesity, unspecified; F12.10 Cannabis abuse, uncomplicated; E78.5 Hyperlipidemia, unspecified; T50.2X5A Adverse effect of carbonic-anhydrase inhibitors, benzothiadiazides and other diuretics, initial encounter; K59.09 Other constipation; K21.9 Gastro-esophageal reflux disease without esophagitis; F41.9 Anxiety disorder, unspecified; F32.A Depression, unspecified; I42.0 Dilated cardiomyopathy; Z90.49 Acquired absence of other specified parts of digestive tract; Z98.890 Other specified postprocedural states; Z86.14 Personal history of Methicillin resistant Staphylococcus aureus infection; Z91.14 Patient's other noncompliance with medication regimen; Z79.01 Long term (current) use of anticoagulants; Z79.84 Long term (current) use of oral hypoglycemic drugs; Z79.899 Other long term (current) drug therapy; Z68.34 Body mass index [BMI] 34.0-34.9, adult
CPT/HCPCS: 36415; 71046; 80048; 80053; 82947; 83735; 83880; 84100; 84132; 84439; 84443; 84484; 85025; 85027; 93005; 93010; 93308; 96374; 96375; 99285-25; A9270; J1170; J1940; J2060; J2405; J7050; U0004

== ENCOUNTER 2022-03-24 19:15 | Emergency (ER) | payer OTHER ==
[~2022-03-24] VITALS: Ht 182.9 cm; Wt 81.7 kg
[~2022-03-24 19:15] MED LIST changes: +ATROPINE SULFATE2 M1 SL; +Ativan1 MG PO; +METAMUCIL POWD575 GM PO; +MORP20L SL
== END 2022-03-24 23:37 | disposition home or self-care (01) ==
LOC: ER 19:15
DX: K43.9 Ventral hernia without obstruction or gangrene (principal); K42.9 Umbilical hernia without obstruction or gangrene; E11.9 Type 2 diabetes mellitus without complications; Z79.899 Other long term (current) drug therapy; F17.200 Nicotine dependence, unspecified, uncomplicated
CPT/HCPCS: J1170

== ENCOUNTER 2022-05-21 13:37 | Emergency (ER) | payer OTHER ==
[~2022-05-21] VITALS: Ht 182.9 cm; Wt 81.7 kg
[2022-05-21] MEDS ORDERED: Percocet 5-3251 EACH PO (16:13)
[2022-05-21] MEDS ORDERED: ONDA4ODT MM (16:13)
== END 2022-05-21 16:32 | disposition home or self-care (01) ==
LOC: ER 13:37
DX: S06.0X0A Concussion without loss of consciousness, initial encounter (principal); S02.32XA Fracture of orbital floor, left side, initial encounter for closed fracture; S02.40DA Maxillary fracture, left side, initial encounter for closed fracture; S02.40FA Zygomatic fracture, left side, initial encounter for closed fracture; E11.9 Type 2 diabetes mellitus without complications; I48.91 Unspecified atrial fibrillation; K21.9 Gastro-esophageal reflux disease without esophagitis; I50.9 Heart failure, unspecified; F17.210 Nicotine dependence, cigarettes, uncomplicated; Z79.899 Other long term (current) drug therapy; X58.XXXA Exposure to other specified factors, initial encounter
CPT/HCPCS: 70450; 99284-25; A9270

== ENCOUNTER 2022-06-15 20:30 | Observation (INO) | payer OTHER ==
[~2022-06-15] VITALS: Ht 182.9 cm; Wt 86.2 kg
[~2022-06-15 20:30] MED LIST changes: -Ativan1 MG PO; +ONDA4ODT MM; +Percocet 5-3251 EACH PO
[2022-06-15] MEDS ORDERED: TAMS.4ER PO (21:20)
[2022-06-15] MEDS ORDERED: CARV3.125 (21:20)
[2022-06-15] MEDS ORDERED: POTA10T PO (21:20)
[2022-06-15] MEDS ORDERED: XARELTO20 MG PO (21:20)
[2022-06-15] MEDS ORDERED: SOAANZ20 M1 PO (21:21)
[2022-06-15] MEDS ORDERED: Ativan1 MG PO (23:08)
== END 2022-06-18 13:53 ==
LOC: ER 20:30 → EOR 20:31
PROVIDERS: ADMIT Student in an Organized Health Care Education/Training Program
DX: F25.1 Schizoaffective disorder, depressive type (principal); F15.10 Other stimulant abuse, uncomplicated; F12.10 Cannabis abuse, uncomplicated; G89.29 Other chronic pain; R45.851 Suicidal ideations; I48.91 Unspecified atrial fibrillation; K21.9 Gastro-esophageal reflux disease without esophagitis; I50.9 Heart failure, unspecified; N18.30 Chronic kidney disease, stage 3 unspecified; E11.22 Type 2 diabetes mellitus with diabetic chronic kidney disease; F17.210 Nicotine dependence, cigarettes, uncomplicated; Z79.01 Long term (current) use of anticoagulants; Z79.899 Other long term (current) drug therapy
CPT/HCPCS: 96372; 99285; A9270; G0378; J1200; J1630; J2060

== ENCOUNTER 2022-06-27 15:14 | Emergency (ER) | payer OTHER ==
[~2022-06-27] VITALS: Ht 182.9 cm; Wt 86.2 kg
[~2022-06-27 15:14] MED LIST changes: +Ativan1 MG PO; +CARV3.125; +SOAANZ20 M1 PO
[2022-06-27 15:46] LABS: BASOPHILS ABSOLUTE AUTO 0.07 K/mm3 (0.00-0.23); BASOPHILS PERCENT AUTO 1 % (0-2); EOSINOPHILS ABSOLUTE AUTO 0.28 K/mm3 (0.00-0.68); EOSINOPHILS PERCENT AUTO 4 % (0-6); Hematocrit 41.7 % (37.0-53.0); Hemoglobin 13.6 g/dL (13.5-17.5); IMMATURE GRAN ABSOLUTE AUTO 0.03 K/mm3 (0.00-0.10); IMMATURE GRAN PERCENT AUTO 0 % (0-1); LYMPHOCYTES ABSOLUTE AUTO 1.67 K/mm3 (0.84-5.20); LYMPHOCYTES PERCENT AUTO 21 % (21-46); MONOCYTES ABSOLUTE AUTO 0.53 K/mm3 (0.16-1.47); MONOCYTES PERCENT AUTO 7 % (4-13); Mean Corpuscular HGB 30.4 pg (26.0-34.0); Mean Corpuscular HGB Conc 32.6 g/dL (31.5-36.5); Mean Corpuscular Volume 93 fL (80-100); Mean Platelet Volume 10.1 fL (9.1-12.4); NEUTROPHILS ABSOLUTE AUTO 5.27 K/mm3 (1.96-9.15); NEUTROPHILS PERCENT AUTO 67 % (41-73); Platelet Count 265 K/mm3 (150-400); RDW Coefficient Variation 13.8 % (11.7-14.2); RDW Standard Deviation 47.1 fL (35.1-46.3); Red Blood Cell Count 4.48 M/mm3 (4.30-5.90); White Blood Cell Count 7.85 K/mm3 (4.00-11.30)
[2022-06-27 16:02] LABS: Albumin, Blood 3.4 g/dL (3.4-5.0); Bilirubin, Total 0.4 mg/dL (0.1-1.0); Bun/Creatinine Ratio 17.7 (12.0-20.0); Creatinine, Blood 0.96 mg/dL (0.60-1.20); Globulin, Blood 3.4 g/dL (2.2-4.0); Potassium, Blood 3.7 mmol/L (3.5-5.5); Total Protein, Blood 6.8 g/dL (6.4-8.2)
== END 2022-06-27 18:28 | disposition home or self-care (01) ==
LOC: ER 15:14
PROVIDERS: Emergency Medicine
DX: I48.91 Unspecified atrial fibrillation (principal); F41.9 Anxiety disorder, unspecified; E11.9 Type 2 diabetes mellitus without complications; N40.0 Benign prostatic hyperplasia without lower urinary tract symptoms; K21.9 Gastro-esophageal reflux disease without esophagitis; I50.9 Heart failure, unspecified; F17.210 Nicotine dependence, cigarettes, uncomplicated; Z79.899 Other long term (current) drug therapy; Z79.01 Long term (current) use of anticoagulants
CPT/HCPCS: 36415; 80053; 83880; 84484; 85025; 93005; 93010; 96374; 99285-25; A9270

== ENCOUNTER 2022-11-11 17:33 | Inpatient (IN) | payer OTHER ==
[~2022-11-11] VITALS: Ht 182.9 cm; Wt 99.8 kg
[~2022-11-11 17:33] MED LIST changes: -CARV3.125; +CARV3.125 PO
[2022-11-11 18:09] LABS: BASOPHILS ABSOLUTE AUTO 0.07 K/mm3 (0.00-0.23); BASOPHILS PERCENT AUTO 1 % (0-2); EOSINOPHILS ABSOLUTE AUTO 0.27 K/mm3 (0.00-0.68); EOSINOPHILS PERCENT AUTO 4 % (0-6); Hematocrit 36.4 % (37.0-53.0); Hemoglobin 12.1 g/dL (13.5-17.5); IMMATURE GRAN ABSOLUTE AUTO 0.01 K/mm3 (0.00-0.10); IMMATURE GRAN PERCENT AUTO 0 % (0-1); LYMPHOCYTES ABSOLUTE AUTO 1.15 K/mm3 (0.84-5.20); LYMPHOCYTES PERCENT AUTO 19 % (21-46); MONOCYTES ABSOLUTE AUTO 0.42 K/mm3 (0.16-1.47); MONOCYTES PERCENT AUTO 7 % (4-13); Mean Corpuscular HGB 30.8 pg (26.0-34.0); Mean Corpuscular HGB Conc 33.2 g/dL (31.5-36.5); Mean Corpuscular Volume 93 fL (80-100); Mean Platelet Volume 10.7 fL (9.1-12.4); NEUTROPHILS ABSOLUTE AUTO 4.22 K/mm3 (1.96-9.15); NEUTROPHILS PERCENT AUTO 69 % (41-73); Platelet Count 198 K/mm3 (150-400); RDW Standard Deviation 51.2 fL (35.1-46.3); Red Blood Cell Count 3.93 M/mm3 (4.30-5.90); White Blood Cell Count 6.14 K/mm3 (4.00-11.30)
[2022-11-11 18:29] LABS: Albumin, Blood 3.3 g/dL (3.4-5.0); Albumin/Globulin Ratio 0.8 (0.8-1.8); Bun/Creatinine Ratio 20.4 (12.0-20.0); Creatinine, Blood 0.93 mg/dL (0.60-1.20); Globulin, Blood 4.1 g/dL (2.2-4.0); Potassium, Blood 3.7 mmol/L (3.5-5.5); Total Protein, Blood 7.4 g/dL (6.4-8.2)
[2022-11-11 23:02] LABS: U Amphetamine Screen DETECTED; U Cannabinoids Screen DETECTED; U Methamphetamine Screen DETECTED
[2022-11-11 23:03] LABS: U Barbituate Screen Not Detected; U Benzodiazapine Screen Not Detected; U Buprenorphine Screen Not Detected; U Cocaine Screen Not Detected; U Methadone Screen Not Detected; U Opiates Screen Not Detected; U Oxycodone Screen Not Detected; U Phencyclidine Screen Not Detected; U Propoxyphene Screen Not Detected
[2022-11-11] MEDS ORDERED: HYDPAM25 PO (23:35)
[2022-11-11] MEDS ORDERED: SERT50 PO (23:36)
[2022-11-11] MEDS ORDERED: Seroquel Xr50 MG PO (23:36)
[2022-11-11] MEDS ORDERED: TRAZ50 PO (23:37)
[2022-11-12 02:29] LABS: BASOPHILS ABSOLUTE AUTO 0.07 K/mm3 (0.00-0.23); BASOPHILS PERCENT AUTO 1 % (0-2); EOSINOPHILS PERCENT AUTO 5 % (0-6); Hematocrit 34.4 % (37.0-53.0); Hemoglobin 11.5 g/dL (13.5-17.5); IMMATURE GRAN ABSOLUTE AUTO 0.05 K/mm3 (0.00-0.10); IMMATURE GRAN PERCENT AUTO 1 % (0-1); LYMPHOCYTES ABSOLUTE AUTO 1.46 K/mm3 (0.84-5.20); LYMPHOCYTES PERCENT AUTO 25 % (21-46); MONOCYTES ABSOLUTE AUTO 0.36 K/mm3 (0.16-1.47); MONOCYTES PERCENT AUTO 6 % (4-13); Mean Corpuscular HGB 30.3 pg (26.0-34.0); Mean Corpuscular HGB Conc 33.4 g/dL (31.5-36.5); Mean Corpuscular Volume 91 fL (80-100); Mean Platelet Volume 10.8 fL (9.1-12.4); NEUTROPHILS ABSOLUTE AUTO 3.56 K/mm3 (1.96-9.15); NEUTROPHILS PERCENT AUTO 61 % (41-73); Platelet Count 188 K/mm3 (150-400); RDW Standard Deviation 49.8 fL (35.1-46.3); Red Blood Cell Count 3.79 M/mm3 (4.30-5.90)
[2022-11-12 03:01] LABS: Albumin, Blood 3.1 g/dL (3.4-5.0); Albumin/Globulin Ratio 0.9 (0.8-1.8); Bilirubin, Total 0.7 mg/dL (0.1-1.0); Bun/Creatinine Ratio 20.9 (12.0-20.0); Calcium, Blood 8.8 mg/dL (8.5-10.1); Creatinine, Blood 0.86 mg/dL (0.60-1.20); Globulin, Blood 3.6 g/dL (2.2-4.0); Magnesium, Blood 2.3 mg/dL (1.6-2.4); Potassium, Blood 3.8 mmol/L (3.5-5.5); Total Protein, Blood 6.7 g/dL (6.4-8.2)
--- NOTE | 2022-11-12 05:31 | NUR ---
PATIENT ALERT AND ORIENTED, ROOM AIR, AFIB CONTROLLED ON TELE, 20 LAC SL, ADA DIET, ACHS, TOX SCREEN POSITIVE FOR METH, AMPHETAMINES, AND MARIJUANA, PATIENT STATED LAST RECREATIONAL DRUG USE WAS 11/11/22, CELLULITIS BLE STARTED ON ANCEF, PATIENT COMPLAINS OF RIGHT EAR PAIN MD AWARE, INITIALLY TOMAS ORDERED FENTANYL FOR PAIN, BUT KALINA DISCONTINUED, PATIENT AGITATED WITH ME THAT FENTANYL DISCONTINUED, PATIENT REQUESTING FOOD CONTINUOUSLY AROUND THE CLOCK, EXPLAINED TO PATIENT ADA DIET, NO EVENTS OVERNIGHT
--- NOTE | 2022-11-12 14:03 | NUR ---
SHIFT SUMMARY PTN WAS INSISTENT THAT HE HAD AN INFECTION AND REPORTED SEEING SMALL WORM-LIKE CRITTERS COMING FROM HIS LEGS. HE ALSO REPORTED SPIKE-LIKE BUGS IN HIS EAR. HE REPORTED TO SEE THEM AND EVEN CALLED DR LUNA BACK IN TO SHOW HIM. DR LUNA HAD INSPECTED EAR WITH OTOSCOPE, CHECKED LEGS, AND TRIED TO EXPLAIN FINDINGS AND REASSURE PTN. PTN WAS FRUSTRATED THAT WE WERE NOT TREATING HIS INFECTION. PRN REPORTED HE WANTED TO LEAVE AND JUST GO TO THE [facility] WHERE THEY W[facility] TREAT HIS INFECTION. PTN LEFT AMA AND WAS GIVEN THE RISKS OF FURTHER HEART DAMAGE WITH CONTINUED USE OF AMPHETAMINES. PTN IS IN AGREEMENT WITH THIS. PTN LEFT AMA AT 0937.
[2022-11-12] MEDS ORDERED: CEPH500 PO (14:46)
== END 2022-11-12 09:37 | disposition left against medical advice (07) | DRG 292 ==
LOC: ER 17:33 → MEDS 20:04
PROVIDERS: Emergency Medicine; ADMIT Student in an Organized Health Care Education/Training Program
DX: I50.23 Acute on chronic systolic (congestive) heart failure (principal); I42.7 Cardiomyopathy due to drug and external agent; L03.116 Cellulitis of left lower limb; I48.91 Unspecified atrial fibrillation; F12.10 Cannabis abuse, uncomplicated; F15.10 Other stimulant abuse, uncomplicated; I87.2 Venous insufficiency (chronic) (peripheral); F25.1 Schizoaffective disorder, depressive type; N40.0 Benign prostatic hyperplasia without lower urinary tract symptoms; K21.9 Gastro-esophageal reflux disease without esophagitis; K42.9 Umbilical hernia without obstruction or gangrene; N18.30 Chronic kidney disease, stage 3 unspecified; E11.22 Type 2 diabetes mellitus with diabetic chronic kidney disease; F17.210 Nicotine dependence, cigarettes, uncomplicated; H60.91 Unspecified otitis externa, right ear; Z79.01 Long term (current) use of anticoagulants; Z86.73 Personal history of transient ischemic attack (TIA), and cerebral infarction without residual deficits; Z90.49 Acquired absence of other specified parts of digestive tract; Z98.890 Other specified postprocedural states; Z86.14 Personal history of Methicillin resistant Staphylococcus aureus infection; Z79.899 Other long term (current) drug therapy
CPT/HCPCS: 36415; 36416; 71045; 80053; 82947; 83036; 83605; 83735; 83880; 84145; 84484; 85025; 93005; 93010; 96374; 99285-25; A9270; J0690; J1940; J3010; J7030; Q0177

== ENCOUNTER 2022-11-12 12:20 | Emergency (ER) | payer OTHER ==
[~2022-11-12] VITALS: Ht 182.9 cm; Wt 116.1 kg
[~2022-11-12 12:20] MED LIST changes: +HYDPAM25 PO; +SERT50 PO; +Seroquel Xr50 MG PO; +TRAZ50 PO
[2022-11-12 13:57] LABS: BASOPHILS ABSOLUTE AUTO 0.06 K/mm3 (0.00-0.23); BASOPHILS PERCENT AUTO 1 % (0-2); EOSINOPHILS PERCENT AUTO 6 % (0-6); Hematocrit 34.1 % (37.0-53.0); Hemoglobin 11.4 g/dL (13.5-17.5); IMMATURE GRAN ABSOLUTE AUTO 0.01 K/mm3 (0.00-0.10); IMMATURE GRAN PERCENT AUTO 0 % (0-1); LYMPHOCYTES ABSOLUTE AUTO 1.19 K/mm3 (0.84-5.20); LYMPHOCYTES PERCENT AUTO 22 % (21-46); MONOCYTES ABSOLUTE AUTO 0.39 K/mm3 (0.16-1.47); MONOCYTES PERCENT AUTO 7 % (4-13); Mean Corpuscular HGB 30.5 pg (26.0-34.0); Mean Corpuscular HGB Conc 33.4 g/dL (31.5-36.5); Mean Corpuscular Volume 91 fL (80-100); Mean Platelet Volume 10.4 fL (9.1-12.4); NEUTROPHILS ABSOLUTE AUTO 3.38 K/mm3 (1.96-9.15); NEUTROPHILS PERCENT AUTO 64 % (41-73); Platelet Count 174 K/mm3 (150-400); RDW Standard Deviation 49.9 fL (35.1-46.3); Red Blood Cell Count 3.74 M/mm3 (4.30-5.90); White Blood Cell Count 5.33 K/mm3 (4.00-11.30)
[2022-11-12 14:25] LABS: Albumin/Globulin Ratio 0.8 (0.8-1.8); Bilirubin, Total 0.7 mg/dL (0.1-1.0); Calcium, Blood 8.6 mg/dL (8.5-10.1); Creatinine, Blood 0.9 mg/dL (0.60-1.20); Globulin, Blood 3.8 g/dL (2.2-4.0); Potassium, Blood 3.9 mmol/L (3.5-5.5); Total Protein, Blood 6.8 g/dL (6.4-8.2)
[2022-11-12] MEDS ORDERED: CEPH500 PO (14:46)
== END 2022-11-12 15:05 | disposition home or self-care (01) ==
LOC: ER 12:20
PROVIDERS: Emergency Medicine
DX: L03.116 Cellulitis of left lower limb (principal); Z79.899 Other long term (current) drug therapy; I48.91 Unspecified atrial fibrillation; I11.0 Hypertensive heart disease with heart failure; E11.9 Type 2 diabetes mellitus without complications; E78.5 Hyperlipidemia, unspecified; I50.9 Heart failure, unspecified; F17.210 Nicotine dependence, cigarettes, uncomplicated
CPT/HCPCS: 80053; 85025; A9270

== ENCOUNTER 2023-02-17 15:14 | Inpatient (IN) | payer OTHER ==
[~2023-02-17] VITALS: Ht 182.9 cm; Wt 117.8 kg
[~2023-02-17 15:14] MED LIST changes: +CEPH500 PO; +CEPHALEXIN500 M1 PO
[2023-02-17 15:52] LABS: BASOPHILS ABSOLUTE AUTO 0.05 K/mm3 (0.00-0.23); BASOPHILS PERCENT AUTO 1 % (0-2); EOSINOPHILS ABSOLUTE AUTO 0.15 K/mm3 (0.00-0.68); EOSINOPHILS PERCENT AUTO 2 % (0-6); Hematocrit 35.7 % (37.0-53.0); Hemoglobin 11.5 g/dL (13.5-17.5); IMMATURE GRAN ABSOLUTE AUTO 0.01 K/mm3 (0.00-0.10); IMMATURE GRAN PERCENT AUTO 0 % (0-1); LYMPHOCYTES ABSOLUTE AUTO 0.95 K/mm3 (0.84-5.20); LYMPHOCYTES PERCENT AUTO 15 % (21-46); MONOCYTES ABSOLUTE AUTO 0.52 K/mm3 (0.16-1.47); MONOCYTES PERCENT AUTO 8 % (4-13); Mean Corpuscular HGB 27.9 pg (26.0-34.0); Mean Corpuscular HGB Conc 32.2 g/dL (31.5-36.5); Mean Corpuscular Volume 87 fL (80-100); Mean Platelet Volume 11.2 fL (9.1-12.4); NEUTROPHILS ABSOLUTE AUTO 4.85 K/mm3 (1.96-9.15); NEUTROPHILS PERCENT AUTO 74 % (41-73); Platelet Count 197 K/mm3 (150-400); RDW Coefficient Variation 16.8 % (11.7-14.2); RDW Standard Deviation 52.4 fL (35.1-46.3); Red Blood Cell Count 4.12 M/mm3 (4.30-5.90); White Blood Cell Count 6.53 K/mm3 (4.00-11.30)
[2023-02-17 16:02] LABS: Albumin, Blood 3.1 g/dL (3.4-5.0); Albumin/Globulin Ratio 0.8 (0.8-1.8); Bilirubin, Total 1.3 mg/dL (0.1-1.0); Bun/Creatinine Ratio 20.7 (12.0-20.0); Calcium, Blood 8.7 mg/dL (8.5-10.1); Creatinine, Blood 1.21 mg/dL (0.60-1.20); Globulin, Blood 4.1 g/dL (2.2-4.0); Potassium, Blood 3.2 mmol/L (3.5-5.5); Total Protein, Blood 7.2 g/dL (6.4-8.2)
[2023-02-17 17:46] LABS: Source, Urine Clean Catch
[2023-02-17 18:02] LABS: Appearance, Urine Clear (Clear); Bilirubin, Urine Neg (Neg); Blood, Urine Neg (Neg); Color, Urine Yellow (P-Yellow); Glucose Qualitative, Urine Neg (Neg); Ketones, Urine Neg (Neg); Leukocyte Esterase, Urine Neg (Neg); Nitrite, Urine Neg (Neg); Protein, Urine Neg (Neg); Specific Gravity, Urine 1.015 (1.003-1.022); Urobilinogen, Urine NORM (Normal)
[2023-02-17 18:22] LABS: U Cannabinoids Screen DETECTED; U Methamphetamine Screen DETECTED
[2023-02-17 18:23] LABS: U Amphetamine Screen DETECTED; U Barbituate Screen Not Detected; U Benzodiazapine Screen DETECTED; U Buprenorphine Screen Not Detected; U Cocaine Screen Not Detected; U Methadone Screen Not Detected; U Opiates Screen Not Detected; U Oxycodone Screen Not Detected; U Phencyclidine Screen Not Detected; U Propoxyphene Screen Not Detected
[2023-02-17 19:17] VITALS: BP 118/98
[2023-02-17 23:30] VITALS: BP 97/80
[2023-02-18] VITALS (7 sets, daily range): BP systolic 93–151; BP diastolic 81–125
[2023-02-18 04:14] LABS: Hematocrit 37.4 % (37.0-53.0); Hemoglobin 12.2 g/dL (13.5-17.5); Mean Corpuscular HGB 27.9 pg (26.0-34.0); Mean Corpuscular HGB Conc 32.6 g/dL (31.5-36.5); Mean Corpuscular Volume 86 fL (80-100); Mean Platelet Volume 11.3 fL (9.1-12.4); Platelet Count 203 K/mm3 (150-400); RDW Coefficient Variation 16.4 % (11.7-14.2); RDW Standard Deviation 51.1 fL (35.1-46.3); Red Blood Cell Count 4.37 M/mm3 (4.30-5.90); White Blood Cell Count 7.59 K/mm3 (4.00-11.30)
[2023-02-18 04:36] LABS: Albumin, Blood 3.4 g/dL (3.4-5.0); Albumin/Globulin Ratio 0.8 (0.8-1.8); Bilirubin, Total 1.3 mg/dL (0.1-1.0); Bun/Creatinine Ratio 20.7 (12.0-20.0); Calcium, Blood 8.8 mg/dL (8.5-10.1); Creatinine, Blood 1.16 mg/dL (0.60-1.20); Globulin, Blood 4.1 g/dL (2.2-4.0); Magnesium, Blood 2.7 mg/dL (1.6-2.4); Potassium, Blood 3.9 mmol/L (3.5-5.5); Total Protein, Blood 7.5 g/dL (6.4-8.2)
--- NOTE | 2023-02-18 05:45 | NUR ---
SHIFT SUMMARY PT IS A NEW ADMIT THIS SHIFT FOR AFIB RVR AND DYSPNEA. HE HAS BEEN HAVING SOB FOR A FEW DAYS AND WAS SENT TO THE HOSPITAL PER HIS PCP. PT IS A&OX4, CALLS APPROPRIATELY, 1P SBA FOR TX, CONT., AND HAS BEEN UP IN THE CHAIR THIS SHIFT TO HELP WITH DYSPNEA. PT WAS HAVING INCREASED SOB IN BED, AND IS SHALLOW BREATHING. HE HAS BEEN ? ABDOMINAL PAIN AND NOT BEING ABLE TO DEFECATE IN FOUR DAYS. HE WAS GIVEN A PRUNE JUICE AND BUTTER COCKTAIL X2, AND MILK OF MAG. HE WAS ALSO STARTED ON SCHEDULED BOWEL MOVEMENT MEDICATIONS. PT IS ON 3-5L NC AND SP02>90%. HE DENIES ANGINA BUT HAS SOME DISCOMFORT WHEN HE GETS DYSPNEIC. HE IS ON AN AMIO GTT AND HE REMAINS IN AFIB 120 S-140 S. CALL LIGHT IS IN REACH. SEE NOTES FOR ANY UPDATES.
--- NOTE | 2023-02-18 10:59 | NUR ---
PATIENT ALERT AND ORIENTED X4. MUMBLED SPEECH AND VERY DROWSY/SLEEPY THIS AM. PATIENT STATES HE DID NOT SLEEP WELL LAST NIGHT. DENIES NUMBNESS/TINGLING. PERRLA. UP WITH ONE PERSON ASSIST AND FWW. ON 5L NASAL CANNULA SATING MID 90'S. VERY SOB WITH MOVEMENTS IN BED. POOR PERFUSION, FINGERS AND TOES DUSKY AND PURPLE COLORING. PATIENT UNABLE TO LAY FLAT IN BED. TELE SHOWING AFIB WITH HR 110'S. AMIO GTT INFUSING PER EMAR. DENIES CHEST PAIN/PRESSURE/PALPITATIONS. EDEMA NOTED TO BLE. ECHO COMPELTED THIS AM. BP ON SOFTER SIDE. COMPLAINS OF ABDOMINAL PAIN/TENDERNESS AND NOT BEING ABLE TO HAVE BOWEL MOVEMENT. STOOL SOFTNERS AND SUPPOSITORY GIVEN PER EMAR. PATIENT EATING SMALL AMOUNTS. USING URINAL TO VOID. IV LASIX GIVEN THIS AM PER EMAR. SKIN OVERALL DUSKY AND COOL. PURPLE COLORING TO HANDS AND BLE. CALL LIGHT IN REACH. ABLE TO MAKE NEEDS KNOWN.
--- NOTE | 2023-02-18 12:30 | NUR ---
PATIENT ABLE TO HAVE SMALL BOWEL MOVEMENT AND REPORTS SLIGHT IMPROVEMENT WITH ABDOMINAL PAIN.
--- NOTE | 2023-02-18 12:50 | NUR ---
PATIENT HAVING INTERMIT NAUSEA. CALL PLACED TO DR. SOL TO UPDATE. QTC READING 0.45. NO NEW ORDERS AT THIS TIME. PATIENT DRINKING SPRITE TO HELP REDUCE NAUSEA SYMPTOMS. THIS RN ALSO UPDATED DR. SOL ABOUT AMIO GTT FINISHING TONIGHT AROUND 1800ISH. NO NEW ORDERS FOR THIS RN TO PLACE. PATIENT UP IN RECLINER AT THIS TIME.
--- NOTE | 2023-02-18 18:23 | NUR ---
SHIFT SUMMARY: PATIENT CONTINUES TO BE VERY SLEEPY THROUGHOUT SHIFT. INTERMIT SMALL NAPS, BUT NOT ACHIEVING GOOD SLEEP. UP IN RECLINER FOR MOST OF SHIFT. CONTINUES TO BE ON 3-5L NASAL CANNULA. NO COUGH NOTED. SOB WITH ANY MOVEMENTS. TELE SHOWING AFIB WITH HR 90-110'S. BP REMAINS SOFT. CALL PLACED TO DR. SOL TO VERIFY EVENING LASIX WITH SOFT BP. OKAY TO GIVE. DENIES CHEST PAIN/PRESSURE THROUGHOUT SHIFT. EDEMA CONTINUES WITHIN BLE. MINIMAL OUTPUT, ALTHOUGH PATIENT NOT EATING OR DRINKING MUCH. INTERMIT ABDOMINAL PAIN/NAUSEA. SMALL BOWEL MOVEMENT THIS SHIFT. BOWEL CARE MEDS GIVEN PER EMAR. THIS RN DISCUSSED PALLIATIVE CARE NURSES AND SERVICES THEY CAN OFFER, PATIENT DENIES NEED TODAY AND STATES HE WILL CONSIDER VISITING WITH THEM TOMORROW. THIS RN DISCUSSED EMERGENCY CONTACT AND PATIENT STATES HIS MOTHER MIGUEL ANGEL, CONFIRMED PHONE NUMBER ON FACE SHEET. THIS RN ALSO DISCUSSED CODE STATUS WITH PATIENT AND PATIENT STATES HIS WISHES ARE FULL CODE AT THIS TIME. CALL LIGHT IN REACH, UP IN RECLINER, DENIES NEEDS AT THIS TIME.
[2023-02-19] VITALS (7 sets, daily range): BP systolic 93–140; BP diastolic 75–120
[2023-02-19 04:17] LABS: Albumin, Blood 3.4 g/dL (3.4-5.0); Anion Gap 7 mmol/L (6-16); Blood Urea Nitrogen 29 mg/dL (8-24); Bun/Creatinine Ratio 23.4 (12.0-20.0); CO2, Blood 25 mmol/L (21-32); Chloride, Blood 106 mmol/L (98-108); Creatinine, Blood 1.24 mg/dL (0.60-1.20); Glomerular Filtration Rate 67 (60-); Glucose, Blood 113 mg/dL (70-99); Phosphorus, Blood 3.2 mg/dL (2.5-4.9); Potassium, Blood 4.3 mmol/L (3.5-5.5); Sodium, Blood 138 mmol/L (136-145)
--- NOTE | 2023-02-19 04:34 | NUR ---
SHIFT SUMMARY ASSUMED CARE OF PT AT 1900. PT IS A/OX4. HEART SOUNDS IRREGULAR. LUNG SOUNDS DIMINISHED AT BASES. PT REMAINED IN HIS CHAIR T/O THE NOC DUE TO ORTHOPNEA. PT DID NOT SLEEP UNTIL ABOUT 0400 THIS AM. PT USED URINAL INDEPENDENTLY. URINE IS DARK AND PRIYANKA COLORED. PT HAS PITTING EDEMA IN EXTREMITIES. PT STATES CP/SOB BUT NO MORE THAN HE USUALLY HAS.
--- NOTE | 2023-02-19 12:30 | NUR ---
Reviewed chart and attempted to meet with George this afternoon. He is open to conversation with the PC nurse however he fell asleep three times during the minute conversation we attempted to have. Will allow him to rest and return at a better time when he can engage in conversation about advanced care planning.
--- NOTE | 2023-02-19 18:28 | NUR ---
ASSUMED CARE OF PT AT 0700 THIS AM. PT REMAINED A&O X4, SPO2 > 92% ON ROOM AIR WHILE AWAKE AND UTILIZED 4L N/C WHILE ASLEEP. PT MET WITH RESPIRATORY CARE AND IS EAGER TO TRY THE CPAP DISCUSSED. PT STATES HE BELIEVES "IT WILL HELP ME BREATH BETTER." PT MET WITH PALLIATIVE CARE, BUT WAS TOO TIRED TO CARRY A SERIOUS CONVERSATION. PALLIATIVE CARE WILL RETURN AT A LATER TIME TO DISCUSS CONCERNS REGARDING CARE. PT RECEIVED ALL PRN BOWEL CARE, BUT HAD REMAINED WITHOUT A BM THIS AFTERNOON. PT IS EDUCATED ABOTU CALL LIGHT AND IT REMAINS WITHIN REACH. WILL CONTINUE TO MONITOR AND GIVE BEDSIDE REPORT TO NOC RN.
[2023-02-20 04:22] LABS: Albumin, Blood 3.1 g/dL (3.4-5.0); Anion Gap 6 mmol/L (6-16); Blood Urea Nitrogen 30 mg/dL (8-24); Bun/Creatinine Ratio 23.1 (12.0-20.0); CO2, Blood 27 mmol/L (21-32); Calcium, Blood 8.8 mg/dL (8.5-10.1); Chloride, Blood 105 mmol/L (98-108); Glomerular Filtration Rate 64 (60-); Glucose, Blood 116 mg/dL (70-99); Phosphorus, Blood 3.2 mg/dL (2.5-4.9); Potassium, Blood 4.2 mmol/L (3.5-5.5); Sodium, Blood 138 mmol/L (136-145)
[2023-02-20 04:26] VITALS: BP 119/77
--- NOTE | 2023-02-20 04:32 | NUR ---
SHIFT SUMMARY ASSUMED CARE OF PT AT 1900. PT IS A/OX4 BUT ANXIOUS. LUNG SOUNDS DIMINISHED AT BASES. HEART SOUNDS IRREGULAR. PT WAS RA WHILE AWAKE BUT NEEDED 3L NC WHILE SLEEPING TO MAINTAIN SATURATIONS. PT WAS GIVEN BOWEL CARE THIS EVENING BUT COMPLAINED OF NO HAVING BM FOR THREE DAYS. HOSPITALIST NOFIED AND LACTOLOSE GIVEN WITH GREAT SUCCESS, PT STATES IT RELEIVED ABD PAIN AND PT WAS ABLE TO SLEEP. AT AROUND 0000 PT AWOKE AFRAID. PT ASKED FOR ANXIETY MEDICATIONS. HOSPITALIST NOTIFIED AND REVIEWED CHART. PT STARTED ON HOME MEDICATIONS. PT WAS ABLE TO SLEEP THE REST OF THE NOC.
[2023-02-20 08:55] VITALS: BP 101/89
[2023-02-20 11:59] VITALS: BP 108/80
--- NOTE | 2023-02-20 12:46 | NUR ---
ASSUMED CARE AT 0700. DRESSING APPLIED TO SMALL WOUND ON R DORSAL ZAPATA. BILATERAL LOWER EXTREMETIES DOMINICK WRAPPED TO FACILITATE DIURESIS. LEGS ELEVATED ON TWO PILLOWS EACH. PT REMAINS IN BED RESTING. CALL LIGHT WITHIN REACH, WILL CONTINUE TO MONITOR FOR CHANGES.
[2023-02-20 16:55] VITALS: BP 94/81
--- NOTE | 2023-02-20 18:08 | NUR ---
SHIFT SUMMARY. ASSUMED CARE FOR PT AT 0700 THIS AM. SPO2 >92% T/O THE AFTERNOON UTILIZING 3L OF O2. PT REMAINS IN AFIB W HR 90S-110S DEPENDENT ON ACTIVITY. A DIME-SIZED ULCER THAT WAS EXUDING A SMALL AMOUNT OF CLEAR FLUID WAS ASSESSED THIS AM ON HIS R DORSAL LOWER EXTREMETY. A DRESSING WAS PLACED WELL DOMINICK WRAP ON BLE TO FACILITATE DIURESIS. PT MET WITH PROVIDER AND ZAROXOLYN WAS PRESCRIBED IN ADDITION TO FUROSEMIDE WELL. PT HAS NOT PASSED A BM THIS AFTERNOON, BUT REPORTS LESS ABDOMINAL PAIN TODAY WELL PRESENTS WILL MODERATE ABDOMINAL DISTENTION. PT HAS INITIATED CONVERSATIONS AND EXPRESSED INTEREST REGARDING HIS PROGNOSIS. PT IS TO MEET WITH PALLIATIVE CARE WHEN AVAILABLE. CALL LIGHT REMAINS WITHIN REACH AND PT UTILIZES IT APPROPRIATELY. WILL CONTINUE TO MONITOR AND GIVE BEDSIDE REPORT TO ONCOMING ALENA RN.
[2023-02-20 19:47] VITALS: BP 95/75
[2023-02-21] VITALS (7 sets, daily range): BP systolic 88–106; BP diastolic 75–86
[2023-02-21 03:50] LABS: Anion Gap 7 mmol/L (6-16); Blood Urea Nitrogen 34 mg/dL (8-24); CO2, Blood 28 mmol/L (21-32); Calcium, Blood 8.4 mg/dL (8.5-10.1); Chloride, Blood 104 mmol/L (98-108); Creatinine, Blood 1.36 mg/dL (0.60-1.20); Glomerular Filtration Rate 60 (60-); Glucose, Blood 114 mg/dL (70-99); Phosphorus, Blood 3.7 mg/dL (2.5-4.9); Potassium, Blood 3.6 mmol/L (3.5-5.5); Sodium, Blood 139 mmol/L (136-145)
--- NOTE | 2023-02-21 05:56 | NUR ---
SHIFT SUMMARY ASSUMED CARE OF PT AT 1900. PT IS A/OX4. HEART SOUNDS IRREGULAR. LUNG SOUNDS DIMINISHED AT BASES. PT C/O SORE THROAT AND ASKED FOR SOFT SNACKS FURING THE NOC. PT SLEPT T/O THE NOC.
--- NOTE | 2023-02-21 18:13 | NUR ---
SHIFT NOTE. PT SPO2>92% WITH RA AND CARDIAC RYTHM SUSTAINED AFIB. PT ADMINISTERED DIURETICS, DOMINICK WRAP OF BLE, AND BLE ELEVATED. PT RESPONDED WELL TO TREATMENT AND WAS ABLE TO VOID MUCH FLUID WHILE PLACED ON 2L FLUID RESTRICTION. URINE CHANGED FROM DARK PRIYANKA, FOUL SMELLING TO A YELLOW, CLEAR VOID. PT STATES BREATHING IS EASIER WELL FEELING BETTER. PT DENIES C/P OR PRESSURE AND DENIES GENERAL PAIN WELL. PT UP TO SHOWER THIS AFTERNOON WITHOUT SUPPLEMENTAL O2 AND TOLERATED WELL. PT COOPERATIVE, LESS ANXIOUS THIS AFTERNOON, AND IS RECEPTIVE TO DISCUSSION ABOUT PLAN OF CARE. CALL LIGHT REMAINS WITHIN REACH, WILL CONTINUE TO MONITOR AND GIVE BEDSIDE REPORT TO ONCOMING NOC RN.
[2023-02-22 03:24] VITALS: BP 100/80
--- NOTE | 2023-02-22 06:02 | NUR ---
SHIFT SUMMARY PATIENT ALER AND ORIENTED x4, ABLE TO MAKE NEEDS KNOWN TO STAFF. VITALS STABLE, TELE READING AFIB 70-80s, DENIED CHEST PAIN, REMAINED ON RA DURING THE NIGHT WITH SPO2 >90%. PATIENT USING URINAL INDEPENDENTLY WITH ADEQUATE OUTPUT. PATIENT ABLE TO TURN SELF IN BED. TOLERATING PO, 2L FLUID RESTRICTION IN PLACE. NO OTHER CHANGES DURING THE NIGHT, WILL REPORT TO DAY SHIFT RN.
[2023-02-22 07:15] VITALS: BP 94/73
--- NOTE | 2023-02-22 07:30 | NUR ---
INITIAL ASSESSMENT: Patient is awake lying in bed watching TV. He is alert and orieted x4. He denies CP at this time. HR Irregular, A-Fib in the 80s. He states he is chronically short of breath, Biox is WNL on RA-93%. He denies cough at this time. BT+, ABD moderately distended soft and tender to light palpation. He has a chronic umbillical hernia, he states this is sore. BLE with 2+ edema. He has an uriel wrap bandage to BLE. VSS. PPP. Patient denies other needs at this time. Call light in reach.
[2023-02-22 08:52] VITALS: BP 99/70
[2023-02-22 10:44] VITALS: BP 110/86
[2023-02-22 15:30] VITALS: BP 99/82
--- NOTE | 2023-02-22 15:35 | NUR ---
Initial palliative care consult: George is a 57 year old with a history of heart failure EF 5-10%, a-fib, schizoaffective disorder, BPH, DM, depression, HLD, GERD, meth use. He was admitted to [facility] on 02/17/23 for a-fib with RVR. Attempted to meet with George last week, however he was too sleepy at that time to have a conversation. Today he is awake, A/Ox4. He states that he is interested in persuing hospice with placement for his care needs. He had spoken with Dr. Napier about his choice earlier today. Systems reviewed. He reports SOB at rest. He has edema to legs and complains of pain from his abd hernia. Offered abd binder to assist with abd discomfort. He states he has one at home that he sometimes uses. He currently reports pain 5/10 to his abd and legs that is constant. Reviewed hospice and the services provided. [facility] with [facility] for him. Discussed code status. He agrees to DNR as he states "It (CPR) won't do any good anyway." Offered to complete a POLST with him today. He states "Can we do it tomorrow?" Dicussed option for transitioning to comfort care while he is in the hospital waiting for placement. He states he will think about it. Will plan to follow up with him tomorrow for possible POLST form completion and continued discussion on transitioning to comfort care. Updated CM RN. Spoke with Dr. Napier and new orders placed.
--- NOTE | 2023-02-22 15:57 | NUR ---
Summary: Patient has been alert and oriented T/O the shift. He has had one C/O abd pain, medicated with Tramadol. He had one episode of anxiety, medicated with Hydroxyine. He states he has chronic shortness of breath. HR A-Fib in the 80s, he is now med no tele. LS Dim in the bases, biox wnl on RA. BT+, he abd is distended and he has a abdominal hernia. PPP, BLE purplish but pulses palpable. [place] wraps to BLE. Palliative care came to see patient, code status has been changed to DNR and he will discharge on hospice. He has been able to get OOB to the recliner with a stand by assist T/O the shift, he has been up for all meals. He refused a shower multiple times this shift. No acute changes this shift, report given to Erin SERRANO.
--- NOTE | 2023-02-22 18:01 | NUR ---
Assumed care of patient at approx 1600, not acute changes noted. Will continue to monitor.
[2023-02-22 20:47] VITALS: BP 99/78
[2023-02-23 03:28] VITALS: BP 102/73
--- NOTE | 2023-02-23 05:22 | NUR ---
SHIFT SUMMARY PT A&Ox4, CALLS AND COMMUNICATES NEEDS APPROPRIATELY. BP SOFT, MAP >65, ASYMPTOMATIC. HR 80's, NO TELE, DENIES CP/PRESSURE. SpO2> 92% RA, DENIES SOB. PT USES URINAL AT BEDSIDE IND. NO BM THIS SHIFT. PT SLEPT THROUGHOUT ENTIRE SHIFT, ONLY WOKE FOR VS AND TO HAVE A SNACK. NO OTHER EVENTS, WILL REPORT TO ONCOMING RN.
[2023-02-23 08:04] VITALS: BP 110/75
--- NOTE | 2023-02-23 16:13 | NUR ---
transfer from [facility] 4 Pt report recievd from Erin SERRANO. Pt arrived in w/c. This nurse is familiar with George from his first residental stay on hospice at [facility]. His home enviroment is very depleted and difficult to reach by foot and vehicle. Continue POC.
[2023-02-23 16:25] VITALS: BP 91/76
--- NOTE | 2023-02-24 04:16 | NUR ---
Shift Summary Pt had some difficulty sleeping early in the shift, was able to sleep after PRN melatonin. No c/o of pain or nausea, no SoB. Stayed in bed, continent voids in urinal. Slept well t/o the night.
[2023-02-24 05:07] LABS: Hematocrit 32.8 % (37.0-53.0); Mean Corpuscular HGB 27.4 pg (26.0-34.0); Mean Corpuscular HGB Conc 33.5 g/dL (31.5-36.5); Mean Corpuscular Volume 82 fL (80-100); Mean Platelet Volume 10.9 fL (9.1-12.4); Platelet Count 201 K/mm3 (150-400); RDW Coefficient Variation 16.4 % (11.7-14.2); RDW Standard Deviation 49.1 fL (35.1-46.3); Red Blood Cell Count 4.02 M/mm3 (4.30-5.90); White Blood Cell Count 5.78 K/mm3 (4.00-11.30)
[2023-02-24 05:49] LABS: Albumin, Blood 2.8 g/dL (3.4-5.0); Albumin/Globulin Ratio 0.8 (0.8-1.8); Bilirubin, Total 0.7 mg/dL (0.1-1.0); Bun/Creatinine Ratio 22.4 (12.0-20.0); Calcium, Blood 8.6 mg/dL (8.5-10.1); Creatinine, Blood 1.16 mg/dL (0.60-1.20); Globulin, Blood 3.6 g/dL (2.2-4.0); Potassium, Blood 3.2 mmol/L (3.5-5.5); Total Protein, Blood 6.4 g/dL (6.4-8.2)
[2023-02-24 09:14] VITALS: BP 112/86
[2023-02-24] MEDS ORDERED: ACET325 PO (10:14)
[2023-02-24] MEDS ORDERED: Amiodarone HCl200 MG PO (10:15)
[2023-02-24] MEDS ORDERED: CARV3.125 PO (10:15)
[2023-02-24] MEDS ORDERED: DOCU100 PO (10:15)
[2023-02-24] MEDS ORDERED: METO2.5 PO (10:16)
[2023-02-24] MEDS ORDERED: LISINOPRIL2.5 MG PO (10:16)
[2023-02-24] MEDS ORDERED: MIRALAX17 GM PO (10:17)
[2023-02-24] MEDS ORDERED: SENN187 PO (10:17)
[2023-02-24] MEDS ORDERED: MIRT30ST PO (10:17)
--- NOTE | 2023-02-24 10:34 | NUR ---
DISCHARGE PT DISCHARGED TO [facility] FOR H[facility] CARE. [facility] W[facility]C TO [facility]. PT AGREEABLE TO MOVE. IV REMOVED. PRESSURE DRESSING APPLIED. PT ABLE TO TRASFER SELF TO W/. MILD SOB. CURRENTLY ON HOLD TO [facility]. CONTINUE POC.
--- NOTE | 2023-02-24 10:46 | NUR ---
KATY ON HOLD TO GIVE REPORT FOR 20 MINUTES THEN CALL WAS ENDED. RECALLED TO KATY AT 1046. PLACED BACK ON HOLD. CONTINUE POC.
--- NOTE | 2023-02-24 10:57 | NUR ---
REPORT TO KATY REPORT CALLED TO KATY. CONTINUE POC.
== END 2023-02-24 10:45 | disposition hospice, inpatient (51) | DRG 291 ==
LOC: ER 15:14 → PCU 18:43 → MEDS 02-23 15:45 → ENPENDDIS 02-24 09:44 → MEDS 02-24 10:45
PROVIDERS: Emergency Medicine; Family Medicine; Internal Medicine; Nurse Practitioner Acute Care; ADMIT Hospitalist
DX: I13.0 Hypertensive heart and chronic kidney disease with heart failure and stage 1 through stage 4 chronic kidney disease, or unspecified chronic kidney disease (principal); I50.23 Acute on chronic systolic (congestive) heart failure; J96.01 Acute respiratory failure with hypoxia; N17.9 Acute kidney failure, unspecified; I48.20 Chronic atrial fibrillation, unspecified; Z51.5 Encounter for palliative care; E78.5 Hyperlipidemia, unspecified; E87.6 Hypokalemia; N40.0 Benign prostatic hyperplasia without lower urinary tract symptoms; F25.1 Schizoaffective disorder, depressive type; F19.10 Other psychoactive substance abuse, uncomplicated; Z59.00 Homelessness unspecified; E66.9 Obesity, unspecified; N18.30 Chronic kidney disease, stage 3 unspecified; I42.7 Cardiomyopathy due to drug and external agent; T43.625A Adverse effect of amphetamines, initial encounter; I34.0 Nonrheumatic mitral (valve) insufficiency; E88.09 Other disorders of plasma-protein metabolism, not elsewhere classified; E11.22 Type 2 diabetes mellitus with diabetic chronic kidney disease; F15.10 Other stimulant abuse, uncomplicated; I07.1 Rheumatic tricuspid insufficiency; K21.9 Gastro-esophageal reflux disease without esophagitis; I87.2 Venous insufficiency (chronic) (peripheral); Z71.51 Drug abuse counseling and surveillance of drug abuser; F17.210 Nicotine dependence, cigarettes, uncomplicated; Z86.73 Personal history of transient ischemic attack (TIA), and cerebral infarction without residual deficits; Z99.81 Dependence on supplemental oxygen; Z79.01 Long term (current) use of anticoagulants; Z90.49 Acquired absence of other specified parts of digestive tract; Z98.890 Other specified postprocedural states; Z68.29 Body mass index [BMI] 29.0-29.9, adult; Z79.899 Other long term (current) drug therapy
CPT/HCPCS: 36415; 71045; 74177; 80053; 80069; 81003; 83735; 83880; 84484; 85025; 85027; 93005; 93010; 94762; 96365-59; 96366; 96368; 96375; 99291-25; A9270; C8929; J0282; J1940; J3475; J3480; J7050; J7060; Q0177; Q9957; Q9967

== ENCOUNTER 2023-07-27 18:13 | Emergency (ER) | payer OTHER ==
[~2023-07-27] VITALS: Ht 182.9 cm; Wt 90.7 kg
[~2023-07-27 18:13] MED LIST changes: +DOCU100 PO; +LISINOPRIL2.5 MG PO; +METO2.5 PO; +MIRT30ST PO; +SENN187 PO
[2023-07-27 18:38] LABS: BASOPHILS ABSOLUTE AUTO 0.09 K/mm3 (0.00-0.23); BASOPHILS PERCENT AUTO 1 % (0-2); EOSINOPHILS ABSOLUTE AUTO 0.34 K/mm3 (0.00-0.68); EOSINOPHILS PERCENT AUTO 3 % (0-6); Hematocrit 44.8 % (37.0-53.0); Hemoglobin 15.1 g/dL (13.5-17.5); IMMATURE GRAN ABSOLUTE AUTO 0.02 K/mm3 (0.00-0.10); IMMATURE GRAN PERCENT AUTO 0 % (0-1); LYMPHOCYTES ABSOLUTE AUTO 1.55 K/mm3 (0.84-5.20); LYMPHOCYTES PERCENT AUTO 15 % (21-46); MONOCYTES ABSOLUTE AUTO 0.75 K/mm3 (0.16-1.47); MONOCYTES PERCENT AUTO 7 % (4-13); Mean Corpuscular HGB 33.7 pg (26.0-34.0); Mean Corpuscular HGB Conc 33.7 g/dL (31.5-36.5); Mean Corpuscular Volume 100 fL (80-100); Mean Platelet Volume 10.2 fL (9.1-12.4); NEUTROPHILS ABSOLUTE AUTO 7.38 K/mm3 (1.96-9.15); NEUTROPHILS PERCENT AUTO 73 % (41-73); Platelet Count 274 K/mm3 (150-400); RDW Coefficient Variation 13.3 % (11.7-14.2); RDW Standard Deviation 49.4 fL (35.1-46.3); Red Blood Cell Count 4.48 M/mm3 (4.30-5.90); White Blood Cell Count 10.13 K/mm3 (4.00-11.30)
[2023-07-27 19:06] LABS: Albumin, Blood 3.5 g/dL (3.4-5.0); Albumin/Globulin Ratio 0.8 (0.8-1.8); Bilirubin, Total 0.4 mg/dL (0.1-1.0); Bun/Creatinine Ratio 21.8 (12.0-20.0); Calcium, Blood 9.2 mg/dL (8.5-10.1); Creatinine, Blood 0.92 mg/dL (0.60-1.20); Globulin, Blood 4.2 g/dL (2.2-4.0); Potassium, Blood 4.6 mmol/L (3.5-5.5); Total Protein, Blood 7.7 g/dL (6.4-8.2)
[2023-07-27 20:39] VITALS: BP 133/95
[2023-07-27] MEDS ORDERED: AMOCLA875 PO (22:24)
[2023-07-27] MEDS ORDERED: HYDR1TAB94 PO (22:24)
== END 2023-07-27 23:23 | disposition home or self-care (01) ==
LOC: ER 18:13
PROVIDERS: Emergency Medicine
DX: K42.9 Umbilical hernia without obstruction or gangrene (principal); H92.03 Otalgia, bilateral; I48.91 Unspecified atrial fibrillation; E11.9 Type 2 diabetes mellitus without complications; E78.5 Hyperlipidemia, unspecified; I11.0 Hypertensive heart disease with heart failure; I50.9 Heart failure, unspecified; F17.210 Nicotine dependence, cigarettes, uncomplicated; Z79.01 Long term (current) use of anticoagulants; Z79.899 Other long term (current) drug therapy
CPT/HCPCS: 74177; 80053; 82272; 83690; 85025; 99285-25; Q9967

== ENCOUNTER 2024-03-14 19:22 | Inpatient (IN) | payer OTHER ==
[~2024-03-14] VITALS: Ht 182.9 cm; Wt 118.3 kg
[~2024-03-14 19:22] MED LIST changes: +HYDR1TAB94 PO
[2024-03-14 19:43] LABS: BASOPHILS ABSOLUTE AUTO 0.09 K/mm3 (0.00-0.23); BASOPHILS PERCENT AUTO 1 % (0-2); EOSINOPHILS ABSOLUTE AUTO 0.52 K/mm3 (0.00-0.68); EOSINOPHILS PERCENT AUTO 7 % (0-6); Hematocrit 41.8 % (37.0-53.0); IMMATURE GRAN ABSOLUTE AUTO 0.01 K/mm3 (0.00-0.10); IMMATURE GRAN PERCENT AUTO 0 % (0-1); LYMPHOCYTES ABSOLUTE AUTO 1.59 K/mm3 (0.84-5.20); LYMPHOCYTES PERCENT AUTO 21 % (21-46); MONOCYTES ABSOLUTE AUTO 0.66 K/mm3 (0.16-1.47); MONOCYTES PERCENT AUTO 9 % (4-13); Mean Corpuscular HGB 31.7 pg (26.0-34.0); Mean Corpuscular HGB Conc 33.5 g/dL (31.5-36.5); Mean Corpuscular Volume 95 fL (80-100); Mean Platelet Volume 10.1 fL (9.1-12.4); NEUTROPHILS ABSOLUTE AUTO 4.75 K/mm3 (1.96-9.15); NEUTROPHILS PERCENT AUTO 62 % (41-73); Platelet Count 207 K/mm3 (150-400); RDW Coefficient Variation 13.2 % (11.7-14.2); RDW Standard Deviation 45.3 fL (35.1-46.3); Red Blood Cell Count 4.41 M/mm3 (4.30-5.90); White Blood Cell Count 7.62 K/mm3 (4.00-11.30)
[2024-03-14 20:02] LABS: Albumin, Blood 3.6 g/dL (3.4-5.0); Albumin/Globulin Ratio 0.9 (0.8-1.8); Bilirubin, Total 0.5 mg/dL (0.1-1.0); Bun/Creatinine Ratio 19.9 (12.0-20.0); Calcium, Blood 9.1 mg/dL (8.5-10.1); Creatinine, Blood 0.91 mg/dL (0.60-1.20); Potassium, Blood 3.6 mmol/L (3.5-5.5); Total Protein, Blood 7.6 g/dL (6.4-8.2)
[2024-03-14 21:20] LABS: U Amphetamine Screen Not Detected; U Barbituate Screen Not Detected; U Benzodiazapine Screen Not Detected; U Buprenorphine Screen Not Detected; U Cannabinoids Screen DETECTED; U Cocaine Screen Not Detected; U Methadone Screen Not Detected; U Methamphetamine Screen DETECTED; U Opiates Screen Not Detected; U Oxycodone Screen Not Detected; U Phencyclidine Screen Not Detected
[2024-03-14] MEDS ORDERED: Ondansetron HCl 2 MG / ML 2ML Vial IV PRN (23:00)
[2024-03-14 23:10] LABS: Magnesium, Blood 1.8 mg/dL (1.6-2.4)
[2024-03-15] VITALS (16 sets, daily range): BP systolic 108–145; BP diastolic 77–113
[2024-03-15] MEDS ORDERED: FentaNYL Citrate 50 MCG/ML 2 ML Injection IV PRN (01:05)
[2024-03-15] MEDS ORDERED: ChlordiazePOXIDE 25 MG Cap PO PRN (01:10)
[2024-03-15] MEDS ORDERED: LORazepam 2 MG/ML 1ML Injection IV PRN (01:10)
[2024-03-15 01:16] LABS: BASOPHILS ABSOLUTE AUTO 0.07 K/mm3 (0.00-0.23); BASOPHILS PERCENT AUTO 1 % (0-2); EOSINOPHILS ABSOLUTE AUTO 0.55 K/mm3 (0.00-0.68); EOSINOPHILS PERCENT AUTO 7 % (0-6); Hematocrit 39.2 % (37.0-53.0); IMMATURE GRAN ABSOLUTE AUTO 0.02 K/mm3 (0.00-0.10); IMMATURE GRAN PERCENT AUTO 0 % (0-1); LYMPHOCYTES ABSOLUTE AUTO 1.81 K/mm3 (0.84-5.20); LYMPHOCYTES PERCENT AUTO 23 % (21-46); MONOCYTES ABSOLUTE AUTO 0.61 K/mm3 (0.16-1.47); MONOCYTES PERCENT AUTO 8 % (4-13); Mean Corpuscular HGB 31.3 pg (26.0-34.0); Mean Corpuscular HGB Conc 33.2 g/dL (31.5-36.5); Mean Corpuscular Volume 94 fL (80-100); Mean Platelet Volume 10.1 fL (9.1-12.4); NEUTROPHILS ABSOLUTE AUTO 4.93 K/mm3 (1.96-9.15); NEUTROPHILS PERCENT AUTO 62 % (41-73); Platelet Count 185 K/mm3 (150-400); RDW Coefficient Variation 13.1 % (11.7-14.2); RDW Standard Deviation 45.3 fL (35.1-46.3); Red Blood Cell Count 4.16 M/mm3 (4.30-5.90); White Blood Cell Count 7.99 K/mm3 (4.00-11.30)
[2024-03-15] MEDS ORDERED: Potassium Chloride 40 MEQ in NS 250 ML IV ONE (01:30)
[2024-03-15] MEDS ORDERED: Mag Sulfate 1 GM/D5% 100ML 100 ML IV ONE (01:30)
[2024-03-15 01:47] LABS: Albumin, Blood 3.2 g/dL (3.4-5.0); Albumin/Globulin Ratio 0.9 (0.8-1.8); Bilirubin, Total 0.5 mg/dL (0.1-1.0); Bun/Creatinine Ratio 18.7 (12.0-20.0); Calcium, Blood 8.7 mg/dL (8.5-10.1); Creatinine, Blood 0.91 mg/dL (0.60-1.20); Globulin, Blood 3.7 g/dL (2.2-4.0); Potassium, Blood 3.9 mmol/L (3.5-5.5); Total Protein, Blood 6.9 g/dL (6.4-8.2)
[2024-03-15] MEDS ORDERED: NS 1,000 ML IV SCH (02:25)
[2024-03-15 04:02] LABS: Source, Urine Clean Catch
[2024-03-15 04:16] LABS: Bilirubin, Urine Neg (Neg); Blood, Urine Neg (Neg); Glucose Qualitative, Urine Neg (Neg); Ketones, Urine Neg (Neg); Leukocyte Esterase, Urine Neg (Neg); Nitrite, Urine Neg (Neg); Protein, Urine Neg (Neg); Urobilinogen, Urine NORM (Normal)
[2024-03-15 04:21] LABS: Appearance, Urine Clear (Clear); Color, Urine Yellow (P-Yellow)
[2024-03-15] MEDS ORDERED: Amiodarone HCl 200 MG Tab PO SCH (06:35)
--- NOTE | 2024-03-15 06:47 | NUR ---
ASSUMPTION OF CARE PT TRANSFERED TO ICU AT 0545, TRANSITIONED TO ICE BED VIA SLIDER SHEET. PT SLEEPING BUT AROUSABLE. ORIENTED X 4, PT FALLS ASLEEP MID CONVERSATION, UNABLE TO COMPLETE ADMIT HISTORY AND MEDICATION RECONCILLIATION DUE TO PT. ANSWERS QUESTIONS APPROPRIATELY, FOLOWS DIRECTION WHEN PROMPTED AND IS ABLE TO MAKE NEEDS KNOWN. PT MOVES EXTREMITIES EQUALLY BILATERALLY. HR 70-10'S AFIB, MAP >65. PT PLACED ON 2L O2 VIA NC, OXYGEN SATURATION >90%. ABDOMEN ROUND, TENDER ON PALPATION. BOWEL TONES HYPOACTIVE BUT PRESENT IN ALL FOUR QUADRANTS. PT USES URINAL TO VOID. PIV IN PLACE TO RAC AND RIGHT WRIST. BED IN LOWEST POSITION, CALL LIGHT WITHIN REACH, CARE CONTINUES.
[2024-03-15] MEDS ORDERED: Acetaminophen 500 MG Tab PO PRN (07:25)
[2024-03-15] MEDS ORDERED: Polyethylene Glycol 3350 17 gm PO PRN (07:25)
[2024-03-15] MEDS ORDERED: Insulin Human Lispro 100 Units/ML 3ML Syringe SC SCH (07:30)
--- NOTE | 2024-03-15 08:00 | NUR ---
INITIAL ASSESSMENT PATIENT SLEEPING SOUNDLY UPON ENTERING ROOM. PATIENT DROWSY AND LETHARGIC BUT WAKES TO VERBAL STIMULI. PATIENT ORIENTED X 4. PATIENT FALLS BACK TO SLEEP AFTER ANSWERS EACH QUESTION. PATIENT SPEECH MUMBLED. CIWA SCORE OF 4 FOR HEADACHE. PATIENT AFEBRILE. PATIENT WEAK BUT ABLE TO MOVE ALL EXTREMITIES AND REPOSITION SELF IN BED. PATIENT COMPLAINS OF 3/10 SHARP CHEST PAIN BUT STATES THAT THE PAIN IS MANAGEABLE AT THIS TIME. LUNGS CLEAR IN UPPER LOBES AND DIMINISHED IN LOWER LOBES. PATIENT SATTING 90% AND GREATER ON RA WHILE AWAKE OR ON 2 L NC WITH SLEEP. PATIENT IN A. FIB WITH BBB, HR 90S TO LOW 100S. SBP 130S TO 140S. PATIENT ON XARELTO AND RECEIVED PO AMIODARONE EARLY BY RELEASE MANAGER RN. 1+ EDEMA NOTED TO BLES. ABD MODERATELY DISTENDED, SOFT WITH HYPOACTIVE BOWEL SOUNDS NOTED. PATIENT REPORTS LAST BM WAS YESTERDAY. LARGE UMBILICAN HERNIA NOTED TO MID R ABD. PATIENT VOIDING PRIYANKA COLORED URINE. PATIENT STATES HE HAS BURNING AND FREQUENCY WITH URINATION AND THAT HE "IS ONLY ABLE TO PEE SMALL AMOUNTS AT A TIME". BLES DISCOLORED; OTHERWISE SKIN APPEARS C/D/I. IVS FLUSHED AND SALINE LOCKED. BED LOW, CALL LIGHT IN REACH. CARE CONTINUES.
[2024-03-15] MEDS ORDERED: TORSE20 PO (08:50)
[2024-03-15] MEDS ORDERED: Flomax0.4 MG PO (08:51)
[2024-03-15] MEDS ORDERED: COREG12.5 M1 PO (08:52)
[2024-03-15] MEDS ORDERED: SERTRALINE HCL50 MG PO (08:52)
[2024-03-15] MEDS ORDERED: TRAZ50 PO (08:52)
[2024-03-15] MEDS ORDERED: LIDO700A20 TOP (08:53)
[2024-03-15] MEDS ORDERED: CENTRUM SILVER1 EAC2 PO (08:53)
[2024-03-15] MEDS ORDERED: KLOR-CON 1010 ME9 PO (08:53)
[2024-03-15] MEDS ORDERED: XARELTO20 MG PO (08:53)
[2024-03-15] MEDS ORDERED: ENSURE PLUS237 ML PO (08:54)
[2024-03-15] MEDS ORDERED: Metoprolol Tartrate 25 MG Tab PO SCH (09:00)
[2024-03-15] MEDS ORDERED: Rivaroxaban 10 MG Tab PO SCH (09:00)
--- NOTE | 2024-03-15 12:30 | NUR ---
PATIENT AFEBRILE. PATIENT STATES CP 3/10 AND TOLERABLE. HR IN THE 80S. SBP IN THE 130S. BLOOD SUGAR OF 123; NO COVERAGE INDICATED. PATIENT STATES HE HAS PARASITES IN HIS NOSE AND EARS. ASKED PATIENT WHAT THEY LOOK LIKE AND HE SAID BROWN WORMS. NO BROWN WORMS SEEN. PATIENT ALERT AND ORIENTED X 4. CARE CONTINUES.
--- NOTE | 2024-03-15 15:23 | NUR ---
SHIFT SUMMARY PATIENT REMAINED ALERT AND ORIENTED X 4, AFEBRILE. PATIENT DROWSY THIS AM. PATIENT STATES THAT HE HAS PARASITES IN HIS NOSE AND EARS. PATIENT ASKED WHAT THEY LOOK LIKE AND HE SAID BROWN WORMS. CIWA SCORE 2 TO 4 FOR HEADACHE. PATIENT HAD 3-4/10 CP THIS SHIFT BUT DID NOT WANT ANY PAIN MEDICATION FOR THE PAIN. PATIENT REMAINED SATTING 90% AND GREATER ON RA WHILE AWAKE. PATIENT REMAINED IN A. FIB, BBB, HR 70S TO LOW 100S. SBP LOW 100S TO 140S. AMIO PO THIS AM. NO BM THIS SHIFT. PATIENT HAD GOOD APPETITE. 700 MLS OF URINE OUT THIS SHIFT. NO CHANGES TO SKIN NOTED. PATIENT REPOSITIONED SELF THROUGHOUT SHIFT. MED L[facility]PD[facility]OUGH [facility]. PATIENT WILL BE TRANSFERRING TO MEDICAL FLOOR, ROOM 310 SHORTLY.
--- NOTE | 2024-03-15 15:46 | NUR ---
PATIENT'S MOM, MIGUEL ANGEL, CALLED AND INFORMED OF TRANSFER TO MEDICAL FLOOR 310. ALL BELONGINGS SENT WITH PATIENT. TRANSFER COMPLETE.
--- NOTE | 2024-03-15 16:35 | NUR ---
ASSUMED CARE NOTE RECEIVED REPORT FROM DIRECTOR MARKETING ANNETTE AND ASSUMED CARE OF PT AT 1555. PT A&OX4, VSS, AMB IND, TOLERATING PO, AND DENIED PAIN. PT PROVIDED W/ URINAL AND ORIENTED TO ROOM AND CALL LIGHT. PT ABLE TO MAKE NEEDS KNOWN. DURING ASSESSMENT PT STATED, "I REALLY HAVE SOMETHING WRONG WITH MY NOSE. IT DOESN'T FEEL RIGHT." PER REPORT AND PREVIOUS NOTE, PT BELIEVES HE HAS WORMS IN HIS NOSE AND EARS.
--- NOTE | 2024-03-15 18:08 | NUR ---
SHIFT SUMMARY NO ACUTE CHANGES FROM PREVIOUS NOTE. CALL LIGHT WITHIN REACH AND PT ABLE TO MAKE NEEDS KNOWN.
[2024-03-15] MEDS ORDERED: Docusate Sodium/Senna 1 Tab PO SCH (21:00)
[2024-03-16 01:48] VITALS: BP 125/91
[2024-03-16 05:18] LABS: Hematocrit 39.4 % (37.0-53.0); Hemoglobin 13.2 g/dL (13.5-17.5); Mean Corpuscular HGB 31.4 pg (26.0-34.0); Mean Corpuscular HGB Conc 33.5 g/dL (31.5-36.5); Mean Corpuscular Volume 94 fL (80-100); Mean Platelet Volume 10.4 fL (9.1-12.4); Platelet Count 185 K/mm3 (150-400); RDW Coefficient Variation 13.1 % (11.7-14.2); RDW Standard Deviation 45.2 fL (35.1-46.3); White Blood Cell Count 8.85 K/mm3 (4.00-11.30)
[2024-03-16 05:51] LABS: Albumin, Blood 3.2 g/dL (3.4-5.0); Anion Gap 9 mmol/L (3-11); Blood Urea Nitrogen 19 mg/dL (8-24); Bun/Creatinine Ratio 20.6 (12.0-20.0); CO2, Blood 24 mmol/L (21-32); Calcium, Blood 8.3 mg/dL (8.5-10.1); Chloride, Blood 109 mmol/L (98-108); Creatinine, Blood 0.92 mg/dL (0.60-1.20); Glomerular Filtration Rate 96 (60-); Glucose, Blood 130 mg/dL (70-99); Phosphorus, Blood 3.5 mg/dL (2.5-4.9); Potassium, Blood 3.9 mmol/L (3.5-5.5); Sodium, Blood 138 mmol/L (136-145)
[2024-03-16 07:27] VITALS: BP 132/90
[2024-03-16] MEDS ORDERED: Thiamine HCl 100 MG Tab PO SCH (09:00)
[2024-03-16] MEDS ORDERED: Multivitamins 1 Tab PO SCH (09:00)
[2024-03-16] MEDS ORDERED: Cholecalciferol 1000 Unit Tablet (=25MCG) PO SCH (09:00)
[2024-03-16] MEDS ORDERED: HYDROcodone 5-APAP 325 TAB PO PRN (14:10)
--- NOTE | 2024-03-16 14:53 | NUR ---
pt slept all morning, when he woke he was agitated, wants pain meds, and states tylenol wont touch anything, all pallative care nurse here and was going to touch base with DrYoel so she was going to ask for norco for him, he also complains of nasal congestion, called and asked for something for that, recieved order for flonase, this was given to pt, he wasn't happy with it because he can't use it throughout the day, his mom came in and tried to calm him. Dr. Herring came to see him. medicated with norco and librium. call light in reach.
--- NOTE | 2024-03-16 15:31 | NUR ---
MET WITH TAMRA AND HIS MOM MIGUEL ANGEL, THEY WERE REQUESTIN PROVIDER TO UPDATE. PROVIDER CAME BACK TO UPDATE PATIENT AND FAMILY ON STATUS. DISCUSSED PAIN CONTROL AND MEDICATIONS WERE CHANGED, RELAYED INFORMATION TO BEDSIDE RN. PATIENT WAS VERY ANXIOUS AT THE TIME OF MY VISIT. TERAPUTIC CONVERATION ABOUT STRUGGLES WITH GETTING TO FOLLOW UP APTS HIS TRUCK IS CURRENTLY BROKEN. UNABLE TO DISCUSSESS GOALS OF CARE OR CODE STATUS AT THIS TIME DUE TO PAIN AND ANXIETY. PC WILL REMAIN AVALIABLE.
--- NOTE | 2024-03-16 18:30 | NUR ---
pt states he is feeling better, states he has paracites in his nose and put one in a specy cup, he states he's been telling people, inforned charge nurse, she believes it's dried nose secretions. pt very calm and cooperative and states still has a h/a, no further agitation. call light in reach.
[2024-03-16 19:27] VITALS: BP 128/88
--- NOTE | 2024-03-16 21:40 | NUR ---
HOSPITALIST CONTACTED. HOSPITALIST CONTACTED FOR PATIENTS C/O STOMACH PAIN, BACK PAIN AND HEADACHE. TALIB ORDERED FOR TUMS PRN-SEE ORDER FOR STOMACH PAIN AND A ONE TIME DOSE OF OXYCODONE X1-SEE ORDER.
[2024-03-16] MEDS ORDERED: OxyCODONE HCL 5 MG TAB PO ONE (23:00)
[2024-03-16] MEDS ORDERED: Calcium Carbonate 500 MG Tab Chew PO PRN (23:00)
[2024-03-17 03:20] VITALS: BP 132/92
--- NOTE | 2024-03-17 04:57 | NUR ---
SHIFT SUMMARY. PATIENT IS A&OX4-PATIENT IS ABLE TO ANSWER ALL ORIENTATION QUESTION APPROPRIATELY. PATIENT REQUESTING ICE CREAM FREQUENTLY-PATIENT OFFERED ADA APPROPRIATE SNACKS. PATIENT C/O PAIN-PATIENT ANGRY ABOUT ORDERED PAIN MEDICATION, WHEN ASKED WHAT HE TAKES AT HOME FOR PAIN PATIENT REPORTS "METH, POT, WHISKY. WHATEVER I CAN GET A HOLD OF". PATIENT REPORTS THAT HE IS NOT GETTING RELIEF FROM PAIN MEDICATIONS LIKE HE WOULD AT HOME. PATIENT RECIEVED A ONE TIME DOSE OF OXYCODONE-PATIENT REPORTS SOME RELIEF. CIWA DONE BY BREAK NURSE REQUIRING ATIVAN. PATIENT HAS BEEN COOPERATIVE WITH CARE. PATIENT UP INDEPENDENTLY IN ROOM. BED IS LOCKED IN THE LOWEST POSITION WITH CALL LIGHT IN REACH. CARE IS ONGOING.
[2024-03-17 07:27] VITALS: BP 147/96
[2024-03-17] MEDS ORDERED: Fluticasone 0.05% Nasal Spray SCH ×2 (09:00)
[2024-03-17] MEDS ORDERED: METO50ER PO (10:18)
[2024-03-17] MEDS ORDERED: OXAYDO5 M1 PO (10:20)
[2024-03-17] MEDS ORDERED: Amiodarone HCl200 MG PO (10:21)
--- NOTE | 2024-03-17 11:46 | NUR ---
DISCHARGE SUMMARY PT DC THIS SHIFT. PT WAS EDUCATED ON DC INSTRUCTIONS AND STATED HE UNDERSTANDS. PT LEFT VIA PRIVATE VEHICLE ACCOMPANIED BY HIS MOTHER.
== END 2024-03-17 11:41 | disposition home or self-care (01) | DRG 309 ==
LOC: ER 19:22 → ERHOLD 19:23 → ICUE 19:23 → MEDS 19:23 → ICUE 03-15 05:35 → MEDS 03-15 15:47 → ENPENDDIS 03-17 10:10 → MEDS 03-17 11:41
PROVIDERS: Emergency Medicine; Internal Medicine; Student in an Organized Health Care Education/Training Program; ADMIT Internal Medicine
PROC: HZ2ZZZZ Detoxification Services for Substance Abuse Treatment (ICD-10-PCS; principal; 2024-03-15)
DX: I48.11 Longstanding persistent atrial fibrillation (principal); I50.22 Chronic systolic (congestive) heart failure; F15.10 Other stimulant abuse, uncomplicated; I42.0 Dilated cardiomyopathy; F10.20 Alcohol dependence, uncomplicated; K21.9 Gastro-esophageal reflux disease without esophagitis; G89.29 Other chronic pain; I11.0 Hypertensive heart disease with heart failure; E11.9 Type 2 diabetes mellitus without complications; N40.0 Benign prostatic hyperplasia without lower urinary tract symptoms; F17.210 Nicotine dependence, cigarettes, uncomplicated; E87.6 Hypokalemia; E78.5 Hyperlipidemia, unspecified; F25.9 Schizoaffective disorder, unspecified; Z79.01 Long term (current) use of anticoagulants; Z86.73 Personal history of transient ischemic attack (TIA), and cerebral infarction without residual deficits
CPT/HCPCS: 36415; 71046; 73610; 80053; 80069; 81003; 82947; 83036; 83735; 83880; 84484; 84550; 85025; 85027; 93005; 93010; 93971; 94760; 94762; 96361; 96365; 96366; 96368; 96375; 96376; 99285-25; A9270; G0378; J0282; J2060; J3475; J3480; J7030; J7050; J7060

== ENCOUNTER 2024-06-06 15:45 | Emergency (ER) | payer OTHER ==
[~2024-06-06] VITALS: Ht 180.3 cm; Wt 113.4 kg
[~2024-06-06 15:45] MED LIST changes: +CENTRUM SILVER1 EAC2 PO; +COREG12.5 M1 PO; +ENSURE PLUS237 ML PO; +Flomax0.4 MG PO; +KLOR-CON 1010 ME9 PO; +LIDO700A20 TOP; +METO50ER PO; +OXAYDO5 M1 PO; +SERTRALINE HCL50 MG PO; +TORSE20 PO
[2024-06-06 16:14] LABS: BASOPHILS ABSOLUTE AUTO 0.06 K/mm3 (0.00-0.23); BASOPHILS PERCENT AUTO 1 % (0-2); EOSINOPHILS ABSOLUTE AUTO 0.36 K/mm3 (0.00-0.68); EOSINOPHILS PERCENT AUTO 5 % (0-6); Hematocrit 40.8 % (37.0-53.0); Hemoglobin 13.6 g/dL (13.5-17.5); IMMATURE GRAN ABSOLUTE AUTO 0.02 K/mm3 (0.00-0.10); IMMATURE GRAN PERCENT AUTO 0 % (0-1); LYMPHOCYTES ABSOLUTE AUTO 1.51 K/mm3 (0.84-5.20); LYMPHOCYTES PERCENT AUTO 20 % (21-46); MONOCYTES ABSOLUTE AUTO 0.81 K/mm3 (0.16-1.47); MONOCYTES PERCENT AUTO 11 % (4-13); Mean Corpuscular HGB 30.7 pg (26.0-34.0); Mean Corpuscular HGB Conc 33.3 g/dL (31.5-36.5); Mean Corpuscular Volume 92 fL (80-100); Mean Platelet Volume 10.1 fL (9.1-12.4); NEUTROPHILS ABSOLUTE AUTO 4.92 K/mm3 (1.96-9.15); NEUTROPHILS PERCENT AUTO 64 % (41-73); Platelet Count 255 K/mm3 (150-400); RDW Coefficient Variation 14.3 % (11.7-14.2); RDW Standard Deviation 48.2 fL (35.1-46.3); Red Blood Cell Count 4.43 M/mm3 (4.30-5.90); White Blood Cell Count 7.68 K/mm3 (4.00-11.30)
[2024-06-06 16:24] LABS: Albumin, Blood 3.2 g/dL (3.4-5.0); Albumin/Globulin Ratio 0.8 (0.8-1.8); Bilirubin, Total 0.4 mg/dL (0.1-1.0); Bun/Creatinine Ratio 22.1 (12.0-20.0); Creatinine, Blood 1.04 mg/dL (0.60-1.20); Globulin, Blood 3.8 g/dL (2.2-4.0); Potassium, Blood 3.9 mmol/L (3.5-5.5)
[2024-06-06] MEDS ORDERED: Mag Hydrox/AL Hydrox/Simeth 30 ML UDC PO ONE (18:25)
[2024-06-06] MEDS ORDERED: Lidocaine 2% Viscous Soln 15 ML UDC PO ONE (18:25)
[2024-06-06 19:15] VITALS: BP 108/75
== END 2024-06-06 20:33 | disposition home or self-care (01) ==
LOC: ER 15:45
PROVIDERS: Student in an Organized Health Care Education/Training Program
DX: K21.9 Gastro-esophageal reflux disease without esophagitis (principal); I48.91 Unspecified atrial fibrillation; I11.0 Hypertensive heart disease with heart failure; I50.20 Unspecified systolic (congestive) heart failure; E11.9 Type 2 diabetes mellitus without complications; E78.5 Hyperlipidemia, unspecified; F17.210 Nicotine dependence, cigarettes, uncomplicated; Z86.73 Personal history of transient ischemic attack (TIA), and cerebral infarction without residual deficits; Z79.899 Other long term (current) drug therapy
CPT/HCPCS: 71046; 80053; 83690; 84484; 85025; 93005; 93010; 99285-25; A9270

== ENCOUNTER 2024-10-29 15:43 | Inpatient (IN) | payer OTHER ==
[~2024-10-29] VITALS: Ht 182.9 cm; Wt 94.8 kg
[2024-10-29 17:05] LABS: BASOPHILS ABSOLUTE AUTO 0.04 K/mm3 (0.00-0.23); BASOPHILS PERCENT AUTO 1 % (0-2); EOSINOPHILS ABSOLUTE AUTO 0.02 K/mm3 (0.00-0.68); EOSINOPHILS PERCENT AUTO 0 % (0-6); Hematocrit 43.1 % (37.0-53.0); Hemoglobin 14.6 g/dL (13.5-17.5); IMMATURE GRAN ABSOLUTE AUTO 0.02 K/mm3 (0.00-0.10); IMMATURE GRAN PERCENT AUTO 0 % (0-1); LYMPHOCYTES ABSOLUTE AUTO 0.68 K/mm3 (0.84-5.20); LYMPHOCYTES PERCENT AUTO 9 % (21-46); MONOCYTES ABSOLUTE AUTO 0.55 K/mm3 (0.16-1.47); MONOCYTES PERCENT AUTO 8 % (4-13); Mean Corpuscular HGB 30.2 pg (26.0-34.0); Mean Corpuscular HGB Conc 33.9 g/dL (31.5-36.5); Mean Corpuscular Volume 89 fL (80-100); Mean Platelet Volume 9.5 fL (9.1-12.4); NEUTROPHILS ABSOLUTE AUTO 6.01 K/mm3 (1.96-9.15); NEUTROPHILS PERCENT AUTO 82 % (41-73); Platelet Count 226 K/mm3 (150-400); RDW Coefficient Variation 13.8 % (11.7-14.2); RDW Standard Deviation 44.8 fL (35.1-46.3); Red Blood Cell Count 4.83 M/mm3 (4.30-5.90); White Blood Cell Count 7.32 K/mm3 (4.00-11.30)
[2024-10-29 17:11] LABS: Albumin, Blood 3.2 g/dL (3.4-5.0); Albumin/Globulin Ratio 0.7 (0.8-1.8); Bilirubin, Total 0.8 mg/dL (0.1-1.0); Bun/Creatinine Ratio 16.2 (12.0-20.0); Calcium, Blood 8.9 mg/dL (8.5-10.1); Creatinine, Blood 0.92 mg/dL (0.60-1.20); Globulin, Blood 4.6 g/dL (2.2-4.0); Potassium, Blood 4.1 mmol/L (3.5-5.5); Total Protein, Blood 7.8 g/dL (6.4-8.2)
[2024-10-29 17:48] LABS: Source, Urine Clean Catch
[2024-10-29 17:50] LABS: Appearance, Urine Clear (Clear); Bilirubin, Urine Neg (Neg); Blood, Urine 1+ (Neg); Color, Urine Yellow (P-Yellow); Glucose Qualitative, Urine Neg (Neg); Ketones, Urine 3+ (Neg); Leukocyte Esterase, Urine Neg (Neg); Nitrite, Urine Neg (Neg); Protein, Urine 2+ (Neg); Specific Gravity, Urine 1.025 (1.003-1.022); Urobilinogen, Urine 1+ (Normal)
[2024-10-29 17:59] LABS: Bacteria Rare /hpf; Red Blood Cells, Urine 0-2 /hpf (0-2); Squamous Epithelial Cells Rare /hpf (Few); White Blood Cells, Urine 0-2 /hpf (0-5)
[2024-10-29] MEDS ORDERED: Ondansetron HCl 2 MG / ML 2ML Vial IV ONE (18:00)
[2024-10-29] MEDS ORDERED: Morphine Sulfate 4 MG/1 ML Injection IV ONE (18:00)
[2024-10-29] MEDS ORDERED: Diltiazem HCl 5 MG / ML 5ML Vial IV ONE (18:20)
[2024-10-29 19:29] LABS: CORONAVIRUS COVID-19 AG Negative (NEGATIVE); INFLUENZA A AG Negative (NEGATIVE); INFLUENZA B AG Negative (NEGATIVE)
[2024-10-29] MEDS ORDERED: CefTRIAXone Sodium 1,000 MG in NS 100 ML IV ONE (20:10)
[2024-10-29] MEDS ORDERED: Apixaban 5 MG Tab PO SCH (21:00)
[2024-10-29] MEDS ORDERED: FLU VACC TS2024-25(6MOS UP)/PF 45 MCG/0.5 ML SYRINGE IM SCH (21:05)
[2024-10-29] MEDS ORDERED: Ondansetron HCl 2 MG / ML 2ML Vial IV PRN (21:05)
[2024-10-29] MEDS ORDERED: Albuterol 2.5 MG/3 ML VIAL INH PRN (21:05)
[2024-10-29] MEDS ORDERED: Ipratropium/Albuterol SulF 2.5-0.5MG/3 ML Amp INH SCH (21:10)
[2024-10-29] MEDS ORDERED: Famotidine 10 MG/ML 2ML Vial IV ONE (21:10)
[2024-10-29] MEDS ORDERED: Metoprolol Tartrate 1 MG/ML 5 ML VIAL IV PRN (21:10)
[2024-10-29] MEDS ORDERED: Azithromycin 500 MG in NS 250 ML IV SCH (21:30)
[2024-10-29 21:56] LABS: U Amphetamine Screen DETECTED; U Barbituate Screen Not Detected; U Benzodiazapine Screen Not Detected; U Buprenorphine Screen Not Detected; U Cannabinoids Screen DETECTED; U Cocaine Screen Not Detected; U Methadone Screen Not Detected; U Methamphetamine Screen DETECTED; U Opiates Screen Not Detected; U Oxycodone Screen Not Detected; U Phencyclidine Screen Not Detected
[2024-10-29] MEDS ORDERED: Metoprolol Tartrate 25 MG Tab PO ONE (22:00)
[2024-10-29 22:23] LABS: Base Excess Venous -2.5 mmol/L; Bicarbonate Venous 22.4 mmol/L (24.0-30.0); PCO2 Venous 37.1 mmHg (38-42); pH Blood Venous 7.39 (7.34-7.37)
[2024-10-29 22:36] VITALS: BP 107/94
[2024-10-29 22:45] VITALS: BP 106/91
[2024-10-29 23:00] VITALS: BP 109/76
--- NOTE | 2024-10-29 23:08 | NUR ---
ARRIVAL TO PCU ROOM 4. PT ARRIVED TO THE UNIT AT 2223 ON A GURNEY. PT WAS ABLE TO STAND AND GET INTO PCU BED AND ASSIT WITH UNDRESSING AND DRESSING INTO A HOSPITAL GOWN. PT HEART RATE WAS IN THE 150s WHEN PLACED ON THE TELE MONITOR, PT GIVEN LOPRESSOR PUSH IV 5MG. BP STABLE. SATTING 92% AND ABOVE ON RA. DENIES CHEST PAIN OR PRESSURE. PT DOES HOWEVER ENDOURSE 7 OUT OF 10 ABDOMINAL PAIN THAT STARTED 3 DAYS AGO, PATIENT SHOWED THIS RN A "HERNIA" ON PT ABDOMEN THAT HE SAYS HE HAS HAD FOR YEARS, BUT HAS BEEN HURTING WHEN HE IS COUGHING. PT EDUCATED ON HOW TO SPLINT W/ PILLOW WHEN COUGHING. PT ORIENTATED TO UNIT AND ROOM. CALL LIGHT IN REACH, BED IN LOWEST POSTION FOR SAFETY.
[2024-10-29 23:15] VITALS: BP 110/89
[2024-10-29] MEDS ORDERED: Acetaminophen 500 MG Tab PO PRN (23:20)
[2024-10-30] VITALS (12 sets, daily range): BP systolic 99–128; BP diastolic 72–95
[2024-10-30 04:50] LABS: BASOPHILS ABSOLUTE AUTO 0.03 K/mm3 (0.00-0.23); BASOPHILS PERCENT AUTO 1 % (0-2); EOSINOPHILS ABSOLUTE AUTO 0.08 K/mm3 (0.00-0.68); EOSINOPHILS PERCENT AUTO 1 % (0-6); Hematocrit 40.9 % (37.0-53.0); Hemoglobin 13.5 g/dL (13.5-17.5); IMMATURE GRAN ABSOLUTE AUTO 0.02 K/mm3 (0.00-0.10); IMMATURE GRAN PERCENT AUTO 0 % (0-1); LYMPHOCYTES ABSOLUTE AUTO 1.08 K/mm3 (0.84-5.20); LYMPHOCYTES PERCENT AUTO 18 % (21-46); MONOCYTES ABSOLUTE AUTO 0.76 K/mm3 (0.16-1.47); MONOCYTES PERCENT AUTO 12 % (4-13); Mean Corpuscular HGB 29.7 pg (26.0-34.0); Mean Corpuscular Volume 90 fL (80-100); Mean Platelet Volume 9.6 fL (9.1-12.4); NEUTROPHILS ABSOLUTE AUTO 4.16 K/mm3 (1.96-9.15); NEUTROPHILS PERCENT AUTO 68 % (41-73); Platelet Count 221 K/mm3 (150-400); RDW Coefficient Variation 13.9 % (11.7-14.2); RDW Standard Deviation 46.4 fL (35.1-46.3); Red Blood Cell Count 4.54 M/mm3 (4.30-5.90); White Blood Cell Count 6.13 K/mm3 (4.00-11.30)
--- NOTE | 2024-10-30 05:33 | NUR ---
SHIFT SUMMARY PT IS A+O X4, COMMUNICATES WELL ABLE TO MAKE NEEDS KNOWN. VSS. HEART RATE HAS REMAINED IN THE LOW 100s SINCE BEING MEDICATED. TELE IN PLACE SHOWING AFIB. DENIES CHEST PAIN/ PRESSURE. HOWEVER HE DID ENDORSE ABDOMINAL PAIN BUT DENIED WANTING THE TYLENOL AVAILABLE TO HIM. PATIENT SLEPT ON AND OFF MOST OF THE NIGHT ONLY AWAKING TO CARES AND TO REQUEST SNACKS, THEN WOULD GO RIGHT BACK TO SLEEP. PATIENT DENIED NEEDS AFTER LAST SNACK WAS PROVIDED TO HIM. USING URINAL IN BED FOR VOIDING. BED IN LOWEST POSTION FOR SAFETY, CALL LIGHT IN REACH. WILL CONTINUE TO TREAT AND REPORT TO ONCOMING RN.
[2024-10-30 05:51] LABS: Albumin, Blood 2.9 g/dL (3.4-5.0); Albumin/Globulin Ratio 0.7 (0.8-1.8); Bilirubin, Total 0.6 mg/dL (0.1-1.0); Bun/Creatinine Ratio 15.5 (12.0-20.0); Calcium, Blood 8.8 mg/dL (8.5-10.1); Creatinine, Blood 1.03 mg/dL (0.60-1.20); Globulin, Blood 4.2 g/dL (2.2-4.0); Potassium, Blood 4.6 mmol/L (3.5-5.5); Total Protein, Blood 7.1 g/dL (6.4-8.2)
[2024-10-30] MEDS ORDERED: Pantoprazole Sodium 40 MG Injection IV SCH (06:00)
[2024-10-30] MEDS ORDERED: Insulin Human Lispro 100 Units/ML 3ML Syringe SC SCH (07:30)
[2024-10-30] MEDS ORDERED: Lactobacil 2-S.Thermo-Bifido 1 1 Cap PO SCH (09:00)
[2024-10-30] MEDS ORDERED: GuaiFENesin 600 MG TabCR PO SCH (09:00)
[2024-10-30] MEDS ORDERED: Metoprolol Succinate 50 MG TABCR PO SCH (09:00)
--- NOTE | 2024-10-30 09:05 | NUR ---
rounding this rn spoke with md sanchez and discussed patient complaints of adbominal pain and not wanting to take tyelnol stating "it hurts my stomach". no new orders placed at this time.
--- NOTE | 2024-10-30 10:33 | NUR ---
AM NOTE this rn assumed care at 0700. vital signs stable. tele afib 110s. patient is alert and oriented x4. poor historian. patient is able to make needs known and uses call light appropriately. patient did own adls this morning with set up from safe. patient reports pain in abd and refusing tylenol states "it doesnt help". patient denies chest pain/pressure or shortness of breath. see shift assessment for further detials. md sanchez rounding on patient and discussed [facility] and the last time patient picked up medications for a 30 day supply was in March 2024, which was Xarelto. This rn updated medication list and called to update md sanchez.
--- NOTE | 2024-10-30 12:33 | NUR ---
update this rn spoke with md sanchez regarding patients abdominal pain and md sanchez is placing orders for a GI cocktail.
[2024-10-30] MEDS ORDERED: Mag Hydrox/AL Hydrox/Simeth 30 ML UDC PO PRN (12:45)
[2024-10-30] MEDS ORDERED: Mag Hydrox/Al Hydrox/Simeth 18 ML,Lidocaine 2% Viscous Soln 9 ML,Atropine/Scopalam/Hyos... PO ONE (12:55)
--- NOTE | 2024-10-30 16:10 | NUR ---
update-md in room Md Herring in the room discussing patient pain on his upper abd pain and the medications patient has received to help with pain. Discussed patient GERD and medications used to help with the acid. The patient the pointed up over his heart and MD Herring discussed the imaging and tests that have been done. patient asked if he coudl describe what makes the pain worse or better and patient wasn't sure and then stated "taking deep breaths". patient educated by this rn to pay attention to what makes pain worse and what improves pain so we can better manage and treat pain. patient verbalized understanding. orders for pain medication placed per md Herring. see order section. plan to continue to await results from echo and monitor heart rate with exertion.
[2024-10-30] MEDS ORDERED: HYDROcodone 5-APAP 325 TAB PO PRN (16:15)
--- NOTE | 2024-10-30 17:53 | NUR ---
shift summary patient neuro remains unchaged this shift. vital signs stable. see previous notes. patient had a shower and linen change this evening. no acute changes this shift.
[2024-10-30] MEDS ORDERED: CefTRIAXone Sodium 1,000 MG in NS 100 ML IV SCH (21:00)
[2024-10-31 04:08] VITALS: BP 122/101
--- NOTE | 2024-10-31 04:32 | NUR ---
SHIFT SUMMARY. SHIFT HAS BEEN UNREMARKABLE. PT AOX4, PLEASANT, COOPERATIVE WITH CARE, ABLE TO MAKE NEEDS KNOWN. PT HAS BEEN ABLE TO REST COMFORTABLY THROUGHOUT MOST OF SHIFT. RUNNING AFIB WITH RATE IN THE 80s-100s THROUGHOUT MOST OF SHIFT. PAIN HAS BEEN ADEQUATELY MANAGED VIA EMAR WITH PT COMPLAINING OF ABD/CHEST PAIN ONCE WHICH WAS ALLEVIATED WITH MAALOX AND NORCO. VITALS HAVE REMAINED STABLE. PT MAINTAINS ADEQUATE SATURATION ON ROOM AIR. URINE OUTPUT CONSISTENT AND CHARTED APPROPRIATELY. BED LOCKED IN LOWEST POSITION. CALL LIGHT LEFT WTIHIN REACH. CONTINUING TO MONITOR.
[2024-10-31 06:30] VITALS: BP 94/82
[2024-10-31 07:35] VITALS: BP 107/73
[2024-10-31 11:35] VITALS: BP 114/84
[2024-10-31] MEDS ORDERED: Spironolactone 12.5 MG TAB PO SCH (12:00)
--- NOTE | 2024-10-31 14:08 | NUR ---
THIS RN GAVE REPORT TO CORKY SERRANO. CORKY TO ASSUME CARE OF PT.
--- NOTE | 2024-10-31 14:26 | NUR ---
ASSUMPTION NOTE: THIS RN TO ASSUME CARE OF PATIENT. WHEN INTRODUCING RN PATIENT IS SITTING IN BED WATCHING TV AND EATING SOME SNACKS, PATIENT NOTIFIED ABOUT THE CHANGE IN RN'S AND STATED HE WAS GOING TO TAKE A NAP FOR NOW AND WOULD LIKE TO GO FOR A WALK LATER ON. PATIENT HAS BED IN LOWEST POSITION AND CALL LIGHT WITHIN REACH.
[2024-10-31 15:38] VITALS: BP 108/82
--- NOTE | 2024-10-31 17:33 | NUR ---
SHIFT SUMMARY: THIS RN ASSUMES CARE OF PATIENT HALF WAY THROUGHOUT THE SHIFT. PATIENT IS ALERT AND ORIENTED X4 AND COOPEARTIVE WITH CARE. IS ON TELE SHOWING AFIB WITH RATE IN 90'S. SATTING >92% ON ROOM AIR, EVEN AND UNLABORED RESPIRAITONS. DID WALK AROUND THE UNIT WITH PCT USING A FRONT WHEELED WALKER AND DID GREAT. DID NEED SOME PAIN MEDICATIONS FOR 8/10 PAIN PER EMAR. PATIENT AWARE HE IS MEDICAL STATUS WITH TELE AND SET TO DISCHARGE TOMORROW. THIS RN WILL CONTINUE TO MONITOR UNTIL PLUGGER WORKER RN ASSUMES CARE.
[2024-10-31 20:41] VITALS: BP 99/68
[2024-10-31] MEDS ORDERED: Metoprolol Succinate 50 MG TABCR PO SCH (21:00)
[2024-10-31] MEDS ORDERED: Azithromycin 250 MG Tab PO SCH (21:00)
--- NOTE | 2024-10-31 22:05 | NUR ---
ASSUMPTION OF CARE/ASSESSMENT: ASSUMED CARE OF PT AT 1900; REPORT RECIEVED FROM CORKY SERRANO. PT A&O X 4, PLEASANT AND COOPERATIVE WITH CARE. PT REQUIRES SBA FOR CORDS WHILE TRANSFERRING FROM CHAIR TO BED. PT C/O CHRONIC PAIN FROM ABD. HERNIA THAT IS AGGITATED WITH MOVEMENT/COUGHING. PRN MEDS AVAILABLE AT 2300, PT DECLINES TYLENOL. CURRENTLY ON RA, SPO2 92<, DENIES SOB, AND LUNG SOUNDS COARSE; PT COUGHING UP MODERATE AMOUNTS OF SPUTUM. CHRONIC AFIB ON MONITOR, HR 90-110, SBP 90-100, AND DENIES CHEST PAIN PRESSURE. TOLERATING PO INTAKE. PIV TO LAC THAT IS PATENT, SALINE LOCKED. BED LOWERED, CALL LIGHT IN REACH.
--- NOTE | 2024-10-31 22:45 | NUR ---
TRANSFER TO [place] [id number]: REPORT GIVEN TO UNIQUE SERRANO ON MEDICAL FLOOR TO ASSUME PRIMARY CARE. PT TRANSFERRED TO NEW ROOM VIA WHEELCHAIR WITH PCT. ALL OF PT'S BELONGINGS TRANSPORTED TO NEW ROOM. PT LEFT THE UNIT AT 2245.
--- NOTE | 2024-10-31 22:48 | NUR ---
ASSUMED CARE ON TRANSFER [id number]
[2024-11-01 00:10] VITALS: BP 119/86
[2024-11-01 03:58] VITALS: BP 113/88
[2024-11-01 04:57] LABS: Hematocrit 37.1 % (37.0-53.0); Hemoglobin 12.3 g/dL (13.5-17.5); Mean Corpuscular HGB 30.1 pg (26.0-34.0); Mean Corpuscular HGB Conc 33.2 g/dL (31.5-36.5); Mean Corpuscular Volume 91 fL (80-100); Mean Platelet Volume 9.7 fL (9.1-12.4); Platelet Count 221 K/mm3 (150-400); RDW Coefficient Variation 13.9 % (11.7-14.2); RDW Standard Deviation 46.9 fL (35.1-46.3); Red Blood Cell Count 4.08 M/mm3 (4.30-5.90); White Blood Cell Count 7.62 K/mm3 (4.00-11.30)
[2024-11-01 05:22] LABS: Albumin, Blood 2.8 g/dL (3.4-5.0); Anion Gap 9 mmol/L (3-11); Blood Urea Nitrogen 21 mg/dL (8-24); Bun/Creatinine Ratio 20.8 (12.0-20.0); CO2, Blood 25 mmol/L (21-32); Calcium, Blood 8.5 mg/dL (8.5-10.1); Chloride, Blood 107 mmol/L (98-108); Creatinine, Blood 1.01 mg/dL (0.60-1.20); Glomerular Filtration Rate 85 (60-); Glucose, Blood 145 mg/dL (70-99); Magnesium, Blood 2.3 mg/dL (1.6-2.4); Phosphorus, Blood 3.5 mg/dL (2.5-4.9); Sodium, Blood 137 mmol/L (136-145)
[2024-11-01] MEDS ORDERED: Pantoprazole Sodium 40 MG Tab PO SCH (06:00)
[2024-11-01 07:25] VITALS: BP 109/87
[2024-11-01] MEDS ORDERED: Lisinopril 5 MG Tab PO SCH (09:00)
[2024-11-01] MEDS ORDERED: Norco 5-325 Ta1 EACH PO (12:13)
[2024-11-01] MEDS ORDERED: LISI5 PO (12:14)
[2024-11-01] MEDS ORDERED: SPIR25 PO (12:15)
[2024-11-01] MEDS ORDERED: PANT40 PO (12:15)
[2024-11-01] MEDS ORDERED: DOXYCYCLINE HYC50 M1 PO (12:16)
[2024-11-01] MEDS ORDERED: JARDIANCE10 MG PO (12:16)
--- NOTE | 2024-11-01 12:40 | NUR ---
PATIENT D/C'D TO HOME WITH FAMILY. DC INSTRUCTIONS AND EDUCATION DISCUSSED WITH PATIENT AND COPY PROVIDED. BELONGINGS TAKEN HOME. PATIENT DENIES ANY FURTHER QUESTIONS OR CONCERNS.
== END 2024-11-01 12:41 | disposition home or self-care (01) | DRG 193 ==
LOC: ER 15:43 → ERHOLD 15:44 → PCU 22:17 → MEDS 10-31 22:44 → ENPENDDIS 11-01 11:34 → MEDS 11-01 12:41
PROVIDERS: Internal Medicine; Nurse Practitioner Acute Care; Student in an Organized Health Care Education/Training Program; ADMIT Internal Medicine
DX: J18.9 Pneumonia, unspecified organism (principal); I21.A1 Myocardial infarction type 2; I48.20 Chronic atrial fibrillation, unspecified; I50.22 Chronic systolic (congestive) heart failure; N28.0 Ischemia and infarction of kidney; E87.1 Hypo-osmolality and hyponatremia; G89.29 Other chronic pain; F15.10 Other stimulant abuse, uncomplicated; F25.0 Schizoaffective disorder, bipolar type; I11.0 Hypertensive heart disease with heart failure; N40.0 Benign prostatic hyperplasia without lower urinary tract symptoms; Z86.73 Personal history of transient ischemic attack (TIA), and cerebral infarction without residual deficits; F17.210 Nicotine dependence, cigarettes, uncomplicated; E11.9 Type 2 diabetes mellitus without complications; Z91.148 Patient's other noncompliance with medication regimen for other reason; Z71.51 Drug abuse counseling and surveillance of drug abuser; Z99.81 Dependence on supplemental oxygen
CPT/HCPCS: 36415; 71046; 71260; 74177; 80053; 80069; 81001; 82803; 82947; 83690; 83735; 84145; 84484; 85025; 85027; 87428-QW; 93005; 93010; 94640; 94664; 94760; 96375; 99285-25; A9270; C8929; G0378; J0456; J0696; J2270; J2405; J2470; J7050; Q9957; Q9967

== ENCOUNTER 2024-12-13 11:55 | Emergency (ER) | payer OTHER ==
[~2024-12-13] VITALS: Ht 182.9 cm; Wt 117.9 kg
[~2024-12-13 11:55] MED LIST changes: +DOXYCYCLINE HYC50 M1 PO; +JARDIANCE10 MG PO; +Norco 5-325 Ta1 EACH PO; +PANT40 PO
[2024-12-13] MEDS ORDERED: Morphine Sulfate 4 MG/1 ML Injection IV ONE (12:20)
[2024-12-13] MEDS ORDERED: Ondansetron HCl 2 MG / ML 2ML Vial IV ONE (12:20)
[2024-12-13 12:28] LABS: BASOPHILS ABSOLUTE AUTO 0.07 K/mm3 (0.00-0.23); BASOPHILS PERCENT AUTO 1 % (0-2); EOSINOPHILS ABSOLUTE AUTO 0.29 K/mm3 (0.00-0.68); EOSINOPHILS PERCENT AUTO 5 % (0-6); Hematocrit 26.2 % (37.0-53.0); Hemoglobin 8.3 g/dL (13.5-17.5); IMMATURE GRAN ABSOLUTE AUTO 0.02 K/mm3 (0.00-0.10); IMMATURE GRAN PERCENT AUTO 0 % (0-1); LYMPHOCYTES ABSOLUTE AUTO 1.08 K/mm3 (0.84-5.20); LYMPHOCYTES PERCENT AUTO 17 % (21-46); MONOCYTES ABSOLUTE AUTO 0.51 K/mm3 (0.16-1.47); MONOCYTES PERCENT AUTO 8 % (4-13); Mean Corpuscular HGB 26.6 pg (26.0-34.0); Mean Corpuscular HGB Conc 31.7 g/dL (31.5-36.5); Mean Corpuscular Volume 84 fL (80-100); Mean Platelet Volume 9.3 fL (9.1-12.4); NEUTROPHILS ABSOLUTE AUTO 4.38 K/mm3 (1.96-9.15); NEUTROPHILS PERCENT AUTO 69 % (41-73); Platelet Count 309 K/mm3 (150-400); RDW Coefficient Variation 17.3 % (11.7-14.2); RDW Standard Deviation 52.4 fL (35.1-46.3); Red Blood Cell Count 3.12 M/mm3 (4.30-5.90); White Blood Cell Count 6.35 K/mm3 (4.00-11.30)
[2024-12-13 13:02] LABS: Albumin, Blood 3.1 g/dL (3.4-5.0); Albumin/Globulin Ratio 0.8 (0.8-1.8); Bilirubin, Total 0.7 mg/dL (0.1-1.0); Bun/Creatinine Ratio 15.8 (12.0-20.0); Calcium, Blood 8.4 mg/dL (8.5-10.1); Creatinine, Blood 1.14 mg/dL (0.60-1.20); Globulin, Blood 3.9 g/dL (2.2-4.0); Potassium, Blood 3.8 mmol/L (3.5-5.5)
[2024-12-13] MEDS ORDERED: HYDROCODONE-AC1 EA10 PO (15:01)
[2024-12-13 15:34] VITALS: BP 111/74
== END 2024-12-13 16:01 | disposition home or self-care (01) ==
LOC: ER 11:55
PROVIDERS: Emergency Medicine
DX: K43.9 Ventral hernia without obstruction or gangrene (principal); I13.0 Hypertensive heart and chronic kidney disease with heart failure and stage 1 through stage 4 chronic kidney disease, or unspecified chronic kidney disease; E11.22 Type 2 diabetes mellitus with diabetic chronic kidney disease; N18.9 Chronic kidney disease, unspecified; I50.9 Heart failure, unspecified; I48.20 Chronic atrial fibrillation, unspecified; F25.1 Schizoaffective disorder, depressive type; F17.210 Nicotine dependence, cigarettes, uncomplicated; Z79.01 Long term (current) use of anticoagulants; Z79.899 Other long term (current) drug therapy
CPT/HCPCS: 74177; 80053; 82272; 85025; 86850; 86900; 86901; 96374-59; 96375; 99284-25; J2270; J2405; Q9967

== ENCOUNTER 2025-03-19 14:54 | Inpatient (IN) | payer OTHER, MEDICARE ==
[~2025-03-19] VITALS: Ht 182.9 cm; Wt 124.5 kg
[~2025-03-19 14:54] MED LIST changes: +HYDROCODONE-AC1 EA10 PO
[2025-03-19 15:53] LABS: BASOPHILS ABSOLUTE AUTO 0.06 K/mm3 (0.00-0.23); BASOPHILS PERCENT AUTO 1 % (0-2); EOSINOPHILS ABSOLUTE AUTO 0.40 K/mm3 (0.00-0.68); EOSINOPHILS PERCENT AUTO 6 % (0-6); Hematocrit 27.0 % (37.0-53.0); Hemoglobin 7.9 g/dL (13.5-17.5); IMMATURE GRAN ABSOLUTE AUTO 0.01 K/mm3 (0.00-0.10); IMMATURE GRAN PERCENT AUTO 0 % (0-1); LYMPHOCYTES ABSOLUTE AUTO 1.08 K/mm3 (0.84-5.20); LYMPHOCYTES PERCENT AUTO 16 % (21-46); MONOCYTES ABSOLUTE AUTO 0.45 K/mm3 (0.16-1.47); MONOCYTES PERCENT AUTO 7 % (4-13); Mean Corpuscular HGB Conc 29.3 g/dL (31.5-36.5); Mean Corpuscular Volume 72 fL (80-100); NEUTROPHILS ABSOLUTE AUTO 4.81 K/mm3 (1.96-9.15); NEUTROPHILS PERCENT AUTO 71 % (41-73); NRBC ABSOLUTE 0.00 K/mm3 (0.00-0.02); NRBC Auto 0.0 /100 WBC (0.0-0.2); Platelet Count 255 K/mm3 (150-400); RDW Coefficient Variation 22.9 % (11.7-14.2); RDW Standard Deviation 57.6 fL (35.1-46.3)
[2025-03-19 15:55] LABS: Alanine Aminotransfer (ALT/SGP 19.0 U/L (12-78); Albumin, Blood 3.2 g/dL (3.4-5.0); Albumin/Globulin Ratio 0.7 (0.8-1.8); Anion Gap 8.0 mmol/L (3-11); Aspartate Aminotrans (AST/SGOT 21.0 U/L (12-37); Bilirubin, Total 0.6 mg/dL (0.1-1.0); Blood Urea Nitrogen 19.0 mg/dL (8-24); CO2, Blood 28.0 mmol/L (21-32); Calcium, Blood 8.8 mg/dL (8.5-10.1); Chloride, Blood 103.0 mmol/L (98-108); Creatinine, Blood 1.07 mg/dL (0.60-1.20); Globulin, Blood 4.5 g/dL (2.2-4.0); Glucose, Blood 186.0 mg/dL (70-99); Potassium, Blood 3.8 mmol/L (3.5-5.5); Sodium, Blood 135.0 mmol/L (136-145); Total Protein, Blood 7.7 g/dL (6.4-8.2)
[2025-03-19] MEDS ORDERED: Ondansetron HCl 2 MG / ML 2ML Vial IV ONE (17:45)
[2025-03-19] MEDS ORDERED: Morphine Sulfate 4 MG/1 ML Injection IV ONE (17:45)
[2025-03-19] MEDS ORDERED: Metoprolol Tartrate 1 MG/ML 5 ML VIAL IV ONE (19:15)
[2025-03-19] MEDS ORDERED: Ondansetron HCl 2 MG / ML 2ML Vial IV PRN (21:35)
[2025-03-19] MEDS ORDERED: HYDROcodone 5-APAP 325 TAB PO PRN (21:35)
[2025-03-19] MEDS ORDERED: Metoprolol Tartrate 1 MG/ML 5 ML VIAL IV PRN (21:35)
[2025-03-19 22:04] LABS: U Amphetamine Screen Not Detected; U Barbituate Screen Not Detected; U Benzodiazapine Screen Not Detected; U Buprenorphine Screen Not Detected; U Cannabinoids Screen DETECTED; U Cocaine Screen Not Detected; U Methadone Screen Not Detected; U Methamphetamine Screen DETECTED; U Opiates Screen DETECTED; U Oxycodone Screen Not Detected; U Phencyclidine Screen Not Detected
[2025-03-19 22:06] LABS: Ferritin, Serum 23.0 ng/mL (26-388); Total Iron Binding Capacity 460.0 ug/dL (250-450)
[2025-03-19 22:33] VITALS: BP 131/91
[2025-03-19] MEDS ORDERED: LORA10ER PO (22:42)
[2025-03-19] MEDS ORDERED: SPIR25 PO (22:43)
[2025-03-19] MEDS ORDERED: TRAZ50 PO (22:44)
[2025-03-19] MEDS ORDERED: TAMS.4ER PO (22:45)
[2025-03-19] MEDS ORDERED: MULVITA PO (22:46)
[2025-03-19] MEDS ORDERED: TORSE20 PO (22:47)
[2025-03-19 23:59] VITALS: BP 112/85
[2025-03-20] VITALS (7 sets, daily range): BP systolic 91–126; BP diastolic 70–87
[2025-03-20 05:05] LABS: Hematocrit 27.9 % (37.0-53.0); Hemoglobin 8.0 g/dL (13.5-17.5); Mean Corpuscular HGB Conc 28.7 g/dL (31.5-36.5); Mean Corpuscular Volume 72 fL (80-100); NRBC ABSOLUTE 0.00 K/mm3 (0.00-0.02); NRBC Auto 0.0 /100 WBC (0.0-0.2); Platelet Count 264 K/mm3 (150-400); RDW Coefficient Variation 23.1 % (11.7-14.2); RDW Standard Deviation 57.1 fL (35.1-46.3)
[2025-03-20 05:40] LABS: Anion Gap 9.0 mmol/L (3-11); Blood Urea Nitrogen 24.0 mg/dL (8-24); CO2, Blood 29.0 mmol/L (21-32); Calcium, Blood 8.5 mg/dL (8.5-10.1); Chloride, Blood 100.0 mmol/L (98-108); Creatinine, Blood 1.21 mg/dL (0.60-1.20); Glucose, Blood 201.0 mg/dL (70-99); Magnesium, Blood 2.0 mg/dL (1.6-2.4); Potassium, Blood 3.5 mmol/L (3.5-5.5); Sodium, Blood 134.0 mmol/L (136-145)
--- NOTE | 2025-03-20 05:51 | NUR ---
SHIFT SUMMARY: PT ARRIVED ON THE UNIT AT 2222. PT AMBULATED FROM GURNEY TO BED. MED REC COMPLETED AND ADMISSION ASSESSMENT COMPLETED. POOR HISTORIAN WITH MED NONCOMPLIANCE. PT A&OX4 CALM AND COOPERATIVE. AFIB 100S-130S. MEDICATED PER EMAR FOR RATE CONTROL. BEGAN TO DESAT INTO 70S ON RA. MAINTAINED >92% ON 2L NC. RECEIVING IV DIURETICS. ADEQUATE URINE OUTPUT. USES URINAL AT BEDSIDE. 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 RECOMMEND SOCIAL WORK TO BE CONSULTED D/T PT REPORTING NOT FEELING SAFE TO RETURN HOME. BED IS LOW AND LOCKED. BED ALARM ON. CALL LIGHT IS WITHIN REACH AND PT CALLS APPROPRIATELY. WILL CONTINUE PLAN OF CARE TILL REPORT GIVEN TO DAY NURSE.
[2025-03-20] MEDS ORDERED: Insulin Human Lispro 100 Units/ML 3ML Syringe SC SCH (07:30)
[2025-03-20] MEDS ORDERED: Polyethylene Glycol 3350 17 gm PO PRN (07:50)
[2025-03-20] MEDS ORDERED: Multivitamins 1 Tab PO SCH (09:00)
--- NOTE | 2025-03-20 12:28 | NUR ---
PT IS A&Ox4 AND ABLE TO MAKE NEEDS KNOWN. HE IS ON RA W/O2 SATS > 90%. HE IS A SBA W/AMBULATION D/T LINES. HE IS CURRENTLY SITTING UP IN RECLINER IN ROOM. THERE ARE NO NEEDS OR CONCERNS NOTED @ THIS TIME. CALL LIGHT AND PERSONAL BELONGINGS IN REACH. REPORT GIVEN TO DAMON @ 7301.
--- NOTE | 2025-03-20 12:40 | NUR ---
Upon receiving a referral for spiritual, I visited the patient. He is sitting on EOB and alert. He tells me about his medical issues, the fact that he has been admitted to hospice and gone off of hospice twice and the severity of his current situation. He speaks of his family unit complications and the possible need to sell his property and move into assisted living. He then confesses his sins, addictions and personal struggles. I heard his confession and fears and provided prayer, encouragement and theological insights. The patient responded well and showed signs of cathersis and greater peace. I will continue to remain available to the patient.
[2025-03-21 03:36] VITALS: BP 91/69
--- NOTE | 2025-03-21 04:00 | NUR ---
SHIFT SUMMARY ADMITTED FOR CHF EXACERBATION. FULL CODE. WE HAVE BEEN DIURESING HIM. HOPEFUL TO DC HOME TODAY W/HH. HE IS ON RA, ADA DIET, A&O X4. HE IS A [facility]. [facility] - LOW SS. HE HAS BEEN INDEPENDENT W/FWW WHILE IN HIS ROOM. HE IS ON XARELTO. I DID GIVE HIM PAIN MEDICATION THIS SHIFT.
[2025-03-21 05:20] LABS: BASOPHILS ABSOLUTE AUTO 0.08 K/mm3 (0.00-0.23); BASOPHILS PERCENT AUTO 1 % (0-2); EOSINOPHILS ABSOLUTE AUTO 0.40 K/mm3 (0.00-0.68); EOSINOPHILS PERCENT AUTO 6 % (0-6); Hematocrit 28.2 % (37.0-53.0); Hemoglobin 8.3 g/dL (13.5-17.5); IMMATURE GRAN ABSOLUTE AUTO 0.01 K/mm3 (0.00-0.10); IMMATURE GRAN PERCENT AUTO 0 % (0-1); LYMPHOCYTES ABSOLUTE AUTO 1.35 K/mm3 (0.84-5.20); LYMPHOCYTES PERCENT AUTO 20 % (21-46); MONOCYTES ABSOLUTE AUTO 0.61 K/mm3 (0.16-1.47); MONOCYTES PERCENT AUTO 9 % (4-13); Mean Corpuscular HGB Conc 29.4 g/dL (31.5-36.5); Mean Corpuscular Volume 72 fL (80-100); NEUTROPHILS ABSOLUTE AUTO 4.29 K/mm3 (1.96-9.15); NEUTROPHILS PERCENT AUTO 64 % (41-73); NRBC ABSOLUTE 0.00 K/mm3 (0.00-0.02); NRBC Auto 0.0 /100 WBC (0.0-0.2); Platelet Count 265 K/mm3 (150-400); RDW Coefficient Variation 23.1 % (11.7-14.2); RDW Standard Deviation 57.3 fL (35.1-46.3)
[2025-03-21 05:46] LABS: Alanine Aminotransfer (ALT/SGP 20.0 U/L (12-78); Albumin, Blood 3.2 g/dL (3.4-5.0); Albumin/Globulin Ratio 0.7 (0.8-1.8); Anion Gap 9.0 mmol/L (3-11); Aspartate Aminotrans (AST/SGOT 16.0 U/L (12-37); Bilirubin, Total 0.5 mg/dL (0.1-1.0); Blood Urea Nitrogen 27.0 mg/dL (8-24); CO2, Blood 26.0 mmol/L (21-32); Calcium, Blood 8.4 mg/dL (8.5-10.1); Chloride, Blood 103.0 mmol/L (98-108); Creatinine, Blood 1.25 mg/dL (0.60-1.20); Globulin, Blood 4.5 g/dL (2.2-4.0); Glucose, Blood 155.0 mg/dL (70-99); Potassium, Blood 4.0 mmol/L (3.5-5.5); Sodium, Blood 134.0 mmol/L (136-145); Total Protein, Blood 7.7 g/dL (6.4-8.2)
[2025-03-21 07:04] VITALS: BP 101/85
[2025-03-21 17:26] VITALS: BP 97/75
--- NOTE | 2025-03-21 17:41 | NUR ---
NO CHANGES IN PT STATUS.
[2025-03-21 19:54] VITALS: BP 92/72
[2025-03-21 23:49] VITALS: BP 83/69
[2025-03-22 03:14] VITALS: BP 104/70
--- NOTE | 2025-03-22 05:08 | NUR ---
SHIFT SUMMARY PT A&Ox3-4 BUT FORGETFUL AT TIMES. PT C/O PAIN AND MEDICATED PER EMAR. PT ALSO C/O ANXIETY AND DR CALLED AND ONE TIME ORDER GIVEN FOR XANAX WITH GOOD EFFECT. PT APPEARED TO BE ABLE TO SLEEP MOST OF THE NIGHT. BG 190 AT HS SO NO INSULIN COVERAGE INDICATED. PT BP HAS BEEN SOFT WITH A BP OF 92/72 AND HR OF 69 SO METOPROLOL NOT GIVEN AT BEDTIME. BED IN LOWEST POSITION AND CALL LIGHT IN REACH.
[2025-03-22 06:17] LABS: BASOPHILS ABSOLUTE AUTO 0.06 K/mm3 (0.00-0.23); BASOPHILS PERCENT AUTO 1 % (0-2); EOSINOPHILS ABSOLUTE AUTO 0.37 K/mm3 (0.00-0.68); EOSINOPHILS PERCENT AUTO 6 % (0-6); Hematocrit 27.4 % (37.0-53.0); Hemoglobin 7.9 g/dL (13.5-17.5); IMMATURE GRAN ABSOLUTE AUTO 0.02 K/mm3 (0.00-0.10); IMMATURE GRAN PERCENT AUTO 0 % (0-1); LYMPHOCYTES ABSOLUTE AUTO 1.19 K/mm3 (0.84-5.20); LYMPHOCYTES PERCENT AUTO 18 % (21-46); MONOCYTES ABSOLUTE AUTO 0.67 K/mm3 (0.16-1.47); MONOCYTES PERCENT AUTO 10 % (4-13); Mean Corpuscular HGB Conc 28.8 g/dL (31.5-36.5); Mean Corpuscular Volume 72 fL (80-100); NEUTROPHILS ABSOLUTE AUTO 4.30 K/mm3 (1.96-9.15); NEUTROPHILS PERCENT AUTO 65 % (41-73); NRBC ABSOLUTE 0.00 K/mm3 (0.00-0.02); NRBC Auto 0.0 /100 WBC (0.0-0.2); Platelet Count 253 K/mm3 (150-400); RDW Coefficient Variation 23.0 % (11.7-14.2); RDW Standard Deviation 58.2 fL (35.1-46.3)
[2025-03-22 06:53] LABS: Alanine Aminotransfer (ALT/SGP 18.0 U/L (12-78); Albumin, Blood 3.1 g/dL (3.4-5.0); Albumin/Globulin Ratio 0.8 (0.8-1.8); Anion Gap 6.0 mmol/L (3-11); Aspartate Aminotrans (AST/SGOT 17.0 U/L (12-37); Bilirubin, Total 0.6 mg/dL (0.1-1.0); Blood Urea Nitrogen 34.0 mg/dL (8-24); CO2, Blood 30.0 mmol/L (21-32); Calcium, Blood 8.1 mg/dL (8.5-10.1); Chloride, Blood 102.0 mmol/L (98-108); Creatinine, Blood 1.51 mg/dL (0.60-1.20); Globulin, Blood 4.1 g/dL (2.2-4.0); Glucose, Blood 144.0 mg/dL (70-99); Potassium, Blood 4.0 mmol/L (3.5-5.5); Sodium, Blood 134.0 mmol/L (136-145); Total Protein, Blood 7.2 g/dL (6.4-8.2)
[2025-03-22 07:50] VITALS: BP 98/70
[2025-03-22] MEDS ORDERED: Torsemide 20 MG TAB PO SCH (09:00)
[2025-03-22 11:35] VITALS: BP 118/85
--- NOTE | 2025-03-22 11:48 | NUR ---
Patient is alert and oriented. He immediately tells me about how frustrated he is because he feels like is was told by one staff member one thing and another thing by another staff member. I provided anxieity containment and prayer and tell him that I will look into the matter. I talk with patient's RNs Reyna and Sim and to food [employer] Cecile and find out that the patient has been rude and disruptive. While I am talking with Cecile down the hallway and around the corner I hear him yelling, "F___ this place amd F___ you. I better get my ride paid for by the hospital or I am leaving right now! RN Sim does a great job of de-escalating him and Cecile comes up with a pathway of moving his case forward even though D/C orders were not even placed yet (verbal consent had been given for d/c). I will remain available to the patient and staff.
[2025-03-22] MEDS ORDERED: FERSU300 PO (12:02)
--- NOTE | 2025-03-22 14:51 | NUR ---
DISCHARGE NOTE PATIENT BEING TAKEN DOWN VIA WHEELCHAIR BY FACILITY EXAMINERMAGGIE ARMENDARIZ. CRISELDA TAXI PICKING UP. BELONGNGS GATHERED AND RETURNED TO PATIENT. PT EDUCATED ON DISCHARGE PACKET AND INSTRUCTIONS. PT VERBALIZED UNDERSTANDING. PT BEING TAKEN TO [facility] BY [facility] PRIOR TO BEING TAKEN HOME. NO NEW QUESTIONS OR CONCERNS PRIOR TO DC.
== END 2025-03-22 15:05 | disposition home or self-care (01) | DRG 291 ==
LOC: ER 14:54 → PCU 21:33 → MEDS 03-20 14:01
PROVIDERS: Nurse Practitioner Acute Care; Registered Nurse; Student in an Organized Health Care Education/Training Program; ADMIT Student in an Organized Health Care Education/Training Program
DX: I13.0 Hypertensive heart and chronic kidney disease with heart failure and stage 1 through stage 4 chronic kidney disease, or unspecified chronic kidney disease (principal); I50.23 Acute on chronic systolic (congestive) heart failure; I48.91 Unspecified atrial fibrillation; E78.5 Hyperlipidemia, unspecified; N40.0 Benign prostatic hyperplasia without lower urinary tract symptoms; F20.9 Schizophrenia, unspecified; F12.90 Cannabis use, unspecified, uncomplicated; F15.90 Other stimulant use, unspecified, uncomplicated; K43.9 Ventral hernia without obstruction or gangrene; N18.2 Chronic kidney disease, stage 2 (mild); E11.22 Type 2 diabetes mellitus with diabetic chronic kidney disease; K21.9 Gastro-esophageal reflux disease without esophagitis; D63.1 Anemia in chronic kidney disease; F41.9 Anxiety disorder, unspecified; I87.8 Other specified disorders of veins; D50.9 Iron deficiency anemia, unspecified; R54 Age-related physical debility; F17.210 Nicotine dependence, cigarettes, uncomplicated; Z86.73 Personal history of transient ischemic attack (TIA), and cerebral infarction without residual deficits; Z79.01 Long term (current) use of anticoagulants; Z79.84 Long term (current) use of oral hypoglycemic drugs; Z79.891 Long term (current) use of opiate analgesic; Z79.899 Other long term (current) drug therapy; Z91.148 Patient's other noncompliance with medication regimen for other reason
CPT/HCPCS: 36415; 71046; 80048; 80053; 82607; 82728; 82746; 82947; 83540; 83550; 83735; 83880; 84484; 85025; 85027; 93005; 93010; 96374; 96375; 97110-CQ; 97116; 97116-CQ; 97161; 97530; 99285-25; A9270; G0378; J1938; J2270; J2405